=== PATIENT | male | born 1940 | race Caucasian/White ===

== ENCOUNTER → 2016-05-17 | Outpatient (CLI) | payer OTHER, BC ==
[~2016-05-17] MED LIST: ALPH300T PO; AMOX500C3 PO; ANDG TOP; ASPCH81X PO; ASPI81TA28 PO; CIPR-255 PO; COEN1CAP32 PO; FLUT0.15 NAE; HYDR-5688 PO; IBUP-1428 PO; LOSA1TAB PO; LYSI100014 PO; MELA1TAB18 PO; MELA3TAB12 PO; METR-163 PO; MISCTAB78 PO; MOME50SP5; MULT-188 PO; PANT1TAB48 PO; ROPI0.25 PO; SULF800T23 PO; TERA1CAP63 PO; TESTOSTERONE INJ; TRAM-10 PO; VALA500T60 PO
--- NOTE | 2016-05-17 08:23 | DIAGNOSTIC IMAGING REPORT ---
CHEST CT WITHOUT CONTRAST CT DOSE: 661.82 mGycm HISTORY: Nodule PULMONARY NODULE TECHNIQUE: Multiaxial CT images of the chest were performed without contrast. COMPARISON: 01/21/2016 FINDINGS: Unchanged exam. Emphysematous change with bleb formation right pulmonary apex. Pleural parenchymal extension to the right lateral chest wall. This is diminished in density from the prior exam. There are no new or interval findings. Minimal nodularity left upper lung is stable. There is no evidence for new interval or progressive disease. Findings were prior median sternotomy and revascularization procedure noted. IMPRESSION: Stable to improved exam. No new or interval process. No further follow-up is felt to be indicated Electronically signed by: Wesley Riggs M.D. 05/17/2016 8:21 AM Dictated Date/Time: 05/17/2016 8:15 AM
== END | disposition home or self-care (01) ==
LOC: C.CTS 08:00
PROVIDERS: ATTEND Surgery
DX: R91.1 Solitary pulmonary nodule (principal)

== ENCOUNTER 2016-08-14 13:53 | Inpatient (IN) | payer OTHER, BC ==
[~2016-08-14] VITALS: Ht 180.3 cm; Wt 110.0 kg
[~2016-08-14 13:53] MED LIST changes: -ASPCH81X PO; -FLUT0.15 NAE; -HYDR-5688 PO; -MELA3TAB12 PO; -METR-163 PO; -MULT-188 PO; -PANT1TAB48 PO; -SULF800T23 PO; -TERA1CAP63 PO; -TESTOSTERONE INJ; -TRAM-10 PO
[2016-08-14 14:53] VITALS: BP 147/80; PULSE 64; TEMP 36.6; O2SAT 97
--- NOTE | 2016-08-14 15:28 | History and Physical ---
History & Physical Date & Time of Service: August 14, 2016 at 15:22 Chief Complaint: Acute Diverticulitis, Failed Outpatient Treatment Primary Care Physician: Heber Felix M.D. History of Present Illness Source: spouse Pain started on evening. Pain started LUQ under rib - patient thought he had pulled a muscle while gardening earlier that day Over the last 4 days, pain has been migratory from LUQ to L lateral flank, then posteriorly, then to LLQ with medial spreading to groin and epigastric region. Took 1/2 oxycodone and ibuprofen simultaneously. This relieved pain significantly, making it tolerable, but no complete resolution. Pain not exacerbated by food, movement/ambulation. Pain felt on lying/sitting/ standing and patient requires ongoing position changes in order to feel comfortable. Pain has been intermittent, alternating between a pressure and sharp sensation. Pain radiates through the body to the back. Currently 5/10. An 8/10 at peak severity and 2-3/10 at best, post analgesia. Patient feels bloated - acutely worsened from the day before, and does have slight nausea since commencing antibiotics. States he has mild dizziness at baseline from medications, recently worsened. He denies fever, CP, SOB, vomiting, and diarrhea. In fact, stool hard. At baseline he has BM twice daily, now irregular. Last BM Monday. Admits he does not keep self well hydrated. No h/o kidney stones (sister and dad had kidney failure - unsure of cause), liver issues (although he used to drink 3/4 of a fifth- quit drinking since 1989 ), gallbladder disease, pancreatitis. No recent travel ([place] and [place] early in Apr 2015) Patient went to walk in clinic on 08/13 and was found to be FOBT negative and treated empirically for diverticulitis (given h/o diverticulosis) with Cipro 500 mg BID and Flagyl 500 mg TID x 10 days, and recommended clears diet. He took less than 24 hours of the medication but continued to have intractable abdominal pain and worsening bloating. He returned to the walk-in clinic on and was directly admitted to hospital for failure of outpatient therapy. Past Medical/Surgical History BPH s/p TURP Arrhythmia s/p pacemaker insertion Diverticulosis Emphysema - not on inhalers, but intermittent CPAP Herpes Bilateral cataract surgery Herniated disk/fusion L3-L6 Social History Smoking Status: Former Smoker (Ex smoker of 30 years, ~45 pack year history) Smokeless Tobacco Use: No Alcohol Use: none Drug Use: none Marital Status: Immunizations History of Influenza Vaccine: Yes Influenza Vaccine Date: Oct 31, 2010 History of Tetanus Vaccine?: Yes History of Pneumococcal: Yes History of Hepatitis B Vaccine: No Allergies Coded Allergies: Adhesives (Verified Allergy, Mild, RASH, 06/30/15) ON HIS NOSE ONLY Grass (Verified Allergy, Unknown, 06/30/15) Wheat (Verified Allergy, Unknown, 06/30/15) Zolpidem (Verified Allergy, Unknown, HALLUCINIATIONS/SUICIDAL THOUGHTS , ) Aspirin (Verified Adverse Reaction, Mild, "GI UPSET", 06/30/15) Sertraline (Verified Adverse Reaction, Unknown, DIZZINESS, 06/30/15) Home Medications Scheduled Alpha-Lipoic Acid (Thioctic Ac (Alpha Lipoic Acid), 400 MG PO QAM Amoxicillin (Amoxil), 500 MG PO UD Aspirin (Aspirin Ec), 81 MG PO HS Ciprofloxacin Hcl (Cipro), 500 MG PO BID Coenzyme Q10 (Ubidecarenone) (Coq-10), 1 TAB PO HS Ibuprofen (Motrin), 800 MG PO Q8H Losartan Potassium (Cozaar), 12.5 MG PO QAM Lysine Hcl (L-Lysine), 1,000 MG PO QAM Melatonin (Melatonin Cr), 1 MG PO HS Misc Natural Products (Osteo Bi-Flex Advanced Do), 1 TAB PEG QAM Mometasone Furoate (Nasonex), 1 SPRAY NA QAM Ropinirole (Requip), 0.25 MG PO HS Testosterone (Androgel), 1 PKT TOP QAM Valacyclovir (Valtrex), 500 MG PO QAM Review of Systems Constitutional: + fatigue (chronic, poor sleep), + weakness, No chills, No fever, No sweats Eyes: + worsening of vision (fuzzy when lighthead), No eye pain ENT: No nasal symptoms, No sore throat, No trouble swallowing Respiratory: No cough, No dyspnea at rest, No dyspnea on exertion, No wheezing Cardiovascular: + palpitations, No PND, No chest pain, No edema, No orthopnea Genitourinary - Male: + problem reported (noctuira x 3 nightly), + urinary hesitancy, + urinary incontinence, + urinary retention, No dysuria, No hematuria , No urinary frequency, No urinary urgency Neurologic: No balance problems, No numbness/tingling Integumentary: No bleeding, No itch, No new/changing skin lesions, No rash Allergic / Immunologic: No environmental allergies, No food allergies, No pet sensitivities, No seasonal allergies Physical Exam Vital Signs Date Time Temp Pulse Resp B/P Pulse Ox O2 Delivery O2 Flow Rate FiO2 08/14/16 14:53 36.6 64 16 147/80 97 Room Air General Appearance: WD/WN, no apparent distress Head: normocephalic, atraumatic Eyes: normal inspection ENT: hearing grossly normal, pharynx normal Neck: supple, no adenopathy, no carotid bruits Respiratory/Chest: lungs clear, normal breath sounds, no respiratory distress, no accessory muscle use Cardiovascular: regular rate, rhythm, no edema, no murmur, normal peripheral pulses Abdomen/GI: normal bowel sounds, soft, + pertinent finding (Distended abdomen, tenderness of LLQ, epigastrium and suprapubic region. No guarding, rigidity or rebound.) Back: normal inspection, no CVA tenderness, + pertinent finding (Tenderness at left low back) Extremities/Musculoskelatal: no calf tenderness, normal capillary refill, no pedal edema Neurologic/Psych: alert, normal mood/affect, oriented x 3 Skin: normal color, warm/dry, no rash Impression Assessment and Plan 75 year old male with PMHx BPH s/p TURP, arrhythmia s/p pacemaker insertion, diverticulosis admitted with LLQ abdominal pain for failure of outpatient therapy of diverticulitis. Abdominal pain - Initial dx include: kidney stone, diverticulitis, pyelonephritis, pancreatitis, UTI, among others. - NPO except sips/ice chips + mIVF D5+1/2NSS @100cc/hr - Tyelonol 1000mg q8h PRN or morphine 2mg q4hr PRN - Check CBC, BMP, LFT, lipase, PT/PTT/INR - UA - Strain all urine - Renal U/S - If renal U/S negative for stone or hydronephrosis, consider CT A/P with PO contrast - Not on antibiotics currently. Constipation - likely exacerbated by dehydration - mIVF D5+1/2NSS @100cc/hr - Colace BID + Miralax PRN BPH s/p TURP - Terazosin 2mg HS Emphysema - not on inhalers, uses CPAP intermittently at home - Declines CPAP in hospital Herpes - Valcyclovir 500mg qAM CAD - Aspirin 81mg daily Allergies - Flonase VTE - Enoxaparin 40mg SC - SCD Code status: Cardioversion WITHOUT chest compressions. Intubation but no detention ventilation Level of Care Med/Surg Advanced Directives Existing Advance Directive: Yes Existing Living Will: No Existing Power of Picking Belt Operator: No Existing Health Care Proxy: Yes () Resuscitation Status FULL NO CARDIOV/MECH MITALI (No compressions, defibrillation ok. Intubation ok, no life long ventilation) VTE Prophylaxis VTE Risk Assessment Done? Y/N: Yes Risk Level: Moderate Given or contraindicated: Enoxaparin (Lovenox)SQ, SCD's Resident Tracking Resident Involvement: Resident Care Provided Care Provided: Adult Hospital Medicine History Resident Physician Supervision Note: I was present with Dr. Mane during the history and exam. I discussed the case with the resident and agree with the findings and plan as documented in the note. Any exceptions or clarifications are listed here. 75 y/o male h/o diverticulosis presents with left sided abdominal pain which has progressively worsened - waxing and waning aching abdominal pain which improved with tylenol and oxycodone and not with ciprofloxacin and flagyl and does not appear related to POI. Change in bowels in the last day or so w/ pellet like stools. Reports no fever, chills, n/v, cough, CP/SOB, rashes, urinary complaints. General Appearance: WD/WN, no apparent distress, obese Respiratory: chest non-tender, lungs clear, normal breath sounds, no respiratory distress Cardiovascular: normal peripheral pulses, regular rate, rhythm, no edema, no murmur Gastrointestinal: normal bowel sounds, non tender, soft, no organomegaly Assessment/Plan BPH s/p TURP Arrhythmia s/p pacemaker insertion Diverticulosis Emphysema - not on inhalers CPAP Bilateral cataract surgery Herniated disk/fusion L3-L6 75 y/o male h/o LASHAWN on CPAP, diverticulosis, BPH s/p TURP p/w 4 days of progressive abdominal pain failing cipro/flagyl Abdominal pain - IV hydration, renal US --> CT w/ abx coverage if no hydronephrosis/stone. Pain control w/ tylenol and morphine. NPO LASHAWN - CPAP qHS
[2016-08-14] MEDS ORDERED: MAGNESIUM HYDROXIDE SUSP 30 ML UDC PO PRN (16:30)
[2016-08-14] MEDS ORDERED: ACETAMINOPHEN 325 MG TAB PO PRN (16:30)
[2016-08-14] MEDS ORDERED: ONDANSETRON INJ 2 MG/ML 2 ML VIAL IV PRN (16:30)
[2016-08-14] MEDS ORDERED: ALUMINUM/MAGNESIUM/SIMETH (MAALOX MAX) 30 ML UDC PO PRN (16:30)
[2016-08-14] MEDS ORDERED: POLYETHYLENE (MIRALAX) 17 GM PACK PO PRN (16:30)
[2016-08-14 17:24] LABS: BASO % 0.3 %; BASO ABS # 0.01 K/uL (0-0.2); EOS % 0.8 %; HEMATOCRIT 38.4 % (42-52); IG% 0.3 %; LYMPH % 25.3 %; LYMPH ABS # 0.98 K/uL (1.2-3.4); MEAN CELL VOLUME 91.2 fL (80-100); MEAN CORPUSCULAR HEMOGLOBIN 32.1 pg (25-34); MEAN PLATELET VOLUME 8.3 fL (7.4-10.4); MONO % 11.1 %; NEUT % 62.2 %; PLATELET COUNT 151 K/uL (130-400); RED BLOOD COUNT 4.21 M/uL (4.7-6.1); WHITE BLOOD COUNT 3.88 K/uL (4.8-10.8)
[2016-08-14 17:25] LABS: COMPLETE YES; MEAN CORPUSCULAR HGB CONC 35.2 g/dl (32-36)
[2016-08-14 17:26] VITALS: BP 147/80; PULSE 64; TEMP 36.6; O2SAT 97; BMI 33.8
[2016-08-14 17:33] LABS: INR 1.1 (0.9-1.1); PARTIAL THROMBOPLASTIN RATIO 1.2; PROTHROMBIN TIME (PATIENT) 11.9 SECONDS (9.0-12.0)
[2016-08-14 17:56] LABS: ALB/GLOB RATIO 1.3 (0.9-2); ALKALINE PHOSPHATASE 58 U/L (45-117); ALT/SGPT 21 U/L (12-78); AST/SGOT 10 U/L (15-37); BLOOD UREA NITROGEN 17 mg/dl (7-18); BUN/CREATININE RATIO 19.1 (10-20); CALCIUM 8.2 mg/dl (8.5-10.1); CARBON DIOXIDE 30 mmol/L (21-32); CHLORIDE 109 mmol/L (98-107); CREATININE 0.88 mg/dl (0.60-1.40); GLUCOSE 81 mg/dl (70-99); SODIUM 144 mmol/L (136-145)
[2016-08-14] MEDS ORDERED: ACETAMINOPHEN 500 MG TAB PO PRN (19:00)
[2016-08-14] MEDS: D5W AND 1/2NSS 1,000 ML IV SCH (19:17)
[2016-08-14] MEDS ORDERED: PATIENT'S HEIGHT AND/OR WEIGHT NEEDED SCH (19:45)
[2016-08-14 20:51] LABS: URINE APPEARANCE CLEAR (CLEAR); URINE BILIRUBIN NEG (NEG); URINE COLOR YELLOW; URINE EPITHELIAL CELL AUTO 0-5 /lpf (0-5); URINE NITRITE NEG (NEG); URINE PH 5.5 (4.5-7.5); URINE SPECIFIC GRAVITY 1.014 (1.000-1.030); UROBILINOGEN NEG (NEG); ZZUR CULT IF INDIC CLEAN CATCH NO
[2016-08-14 20:53] LABS: MANUAL MICROSCOPIC REQUIRED? NO; REVIEW REQ? NO
[2016-08-14] MEDS ORDERED: MELATONIN 1 MG PO SCH (21:00)
[2016-08-14] MEDS: MoRPHine SULFATE 2 MG/ML CARP IV PRN (21:47)
[2016-08-14] MEDS: ASPIRIN 81 MG ECTAB PO SCH (21:50)
[2016-08-14] MEDS: DOCUSATE SODIUM 100 MG CAP PO SCH (21:51)
[2016-08-14] MEDS: ACETAMINOPHEN 500 MG TAB PO PRN (22:24)
[2016-08-14 23:40] VITALS: BP 150/83; PULSE 65; TEMP 36.7; O2SAT 95
[2016-08-15] MEDS: MoRPHine SULFATE 2 MG/ML CARP IV PRN ×2 (02:02→05:57)
[2016-08-15] MEDS: ACETAMINOPHEN 500 MG TAB PO PRN ×2 (02:39→13:51)
[2016-08-15] MEDS: D5W AND 1/2NSS 1,000 ML IV SCH ×2 (04:27→13:17)
[2016-08-15 06:03] LABS: HEMATOCRIT 38.7 % (42-52); MEAN CELL VOLUME 90.6 fL (80-100); MEAN CORPUSCULAR HEMOGLOBIN 31.1 pg (25-34); MEAN CORPUSCULAR HGB CONC 34.4 g/dl (32-36); MEAN PLATELET VOLUME 8.5 fL (7.4-10.4); PLATELET COUNT 168 K/uL (130-400); RED BLOOD COUNT 4.27 M/uL (4.7-6.1); WHITE BLOOD COUNT 4.11 K/uL (4.8-10.8)
[2016-08-15 06:36] LABS: BUN/CREATININE RATIO 15.7 (10-20); CALCIUM 8.1 mg/dl (8.5-10.1); CREATININE 0.8 mg/dl (0.60-1.40); POTASSIUM 3.5 mmol/L (3.5-5.1)
[2016-08-15 07:11] VITALS: Ht 180.3 cm; Wt 110.0 kg
[2016-08-15 07:14] VITALS: BP 143/82; PULSE 76; TEMP 36.5; O2SAT 95
--- NOTE | 2016-08-15 07:15 | DIAGNOSTIC IMAGING REPORT ---
RENAL ULTRASOUND HISTORY: ?kidney/ureteric stone COMPARISON: None. FINDINGS: Right kidney: 12.4 cm. No hydronephrosis. Normal corticomedullary differentiation and cortical thickness. Left kidney: 12.1 cm. No hydronephrosis. Normal corticomedullary differentiation and cortical thickness. Bladder: No bladder wall thickening. The bilateral ureteral jets were identified. IMPRESSION: Normal renal ultrasound. Electronically signed by: Eduardo Hunt M.D. 08/15/2016 7:14 AM Dictated Date/Time: 08/15/2016 7:13 AM
[2016-08-15] MEDS: ENOXAPARIN 40 MG/0.4 ML SYR SQ SCH (09:12)
[2016-08-15] MEDS: FLUTICASONE PROPIONATE NA SPR 16 GM BTL NAE SCH (09:12)
[2016-08-15] MEDS: DOCUSATE SODIUM 100 MG CAP PO SCH ×2 (09:12→21:46)
[2016-08-15] MEDS ORDERED: MoRPHine SULFATE 4 MG/ML 1 ML CARP\\VIAL IV ONE (10:15)
[2016-08-15] MEDS ORDERED: MoRPHine SULFATE 4 MG/ML 1 ML CARP\\VIAL IV PRN (12:00)
--- NOTE | 2016-08-15 13:47 | DIAGNOSTIC IMAGING REPORT ---
ABDOMEN AND PELVIS CT WITH ORAL CONTRAST CT DOSE: 1175.46 mGy.cm HISTORY: Left lower quadrant abdominal pain. TECHNIQUE: Multiaxial CT images of the abdomen and pelvis were performed following the use of oral contrast. COMPARISON STUDY: None. FINDINGS: Mild thickening of the left basilar pleural. Otherwise, the lungs are clear. Pacemaker wires are noted. Right total hip arthroplasty. Posterior decompression and fusion within the lower lumbar spine. The unenhanced liver, gallbladder, spleen, adrenal glands, kidneys, and pancreas are unremarkable. No retroperitoneal lymphadenopathy. The visualized bladder is unremarkable. Colonic diverticulosis. No bowel wall thickening or obstruction. Normal appendix. IMPRESSION: 1. No bowel wall thickening or obstruction. 2. Normal appendix. 3. Colonic diverticulosis. 4. No renal stones or hydronephrosis. Electronically signed by: Eduardo Hunt M.D. 08/15/2016 1:45 PM Dictated Date/Time: 08/15/2016 1:38 PM
[2016-08-15 15:45] VITALS: BP 127/71; PULSE 64; TEMP 36.9; O2SAT 95
--- NOTE | 2016-08-15 15:51 | Family Medicine Progress Note ---
Progress Note Date of Service August 15, 2016. Subjective Pt evaluation today including: conversation w/ patient, conversation w/ family , physical exam, chart review, conversation w/ sustainable design consultant, review of inpatient medication list Pain: controlled PO Intake: adequate Voiding: no voiding problems Patient with no acute events overnight. His pain was still pretty severe this morning and he required an increase in his pain medication from 2mg to 3mg. Has had some diarrhea since starting stool softeners. CT abdomen/pelvis and Abdominal ultrasound were both normal He did mention to me that on Monday he was doing a lot of yard work and was doing a lot of weeding and lifting Patient denies any fevers, night sweats, chills, nausea, vomiting, constipation , chest pain, palpitations, cough, shortness of breath Additional Comments: See above for ROS Medications Current Inpatient Medications Medications (Trade) Dose Ordered Sig/Nils Route Start Time Stop Time Status Last Admin Dose Admin Al Hydrox/Mg Hydrox/Simethicone (Maalox Max Susp) 15 ml Q4H PRN PO 08/14/16 16:30 09/13/16 16:29 Magnesium Hydroxide (Milk Of Magnesia Susp) 30 ml Q6H PRN PO 08/14/16 16:30 09/13/16 16:29 Polyethylene (Miralax Powder Packet) 17 gm DAILY PRN PO 08/14/16 16:30 09/13/16 16:29 Ondansetron HCl (Zofran Inj) 4 mg Q6H PRN IV 08/14/16 16:30 09/13/16 16:29 Aspirin (Ecotrin Tab) 81 mg HS PO 08/14/16 21:00 09/13/16 20:59 08/14/16 21:50 81 MG Valacyclovir HCl (Valtrex Tab) 500 mg QAM PO 08/15/16 09:00 08/25/16 08:59 08/15/16 09:12 500 MG Fluticasone Propionate 1 sprays 1 sprays QAM ZHANNA 08/15/16 09:00 09/14/16 08:59 08/15/16 09:12 1 SPRAYS Dextrose/Sodium Chloride (D5W And 1/2nss) 1,000 ml @ 100 mls/hr Q10H IV 08/14/16 17:45 09/13/16 17:44 08/15/16 13:17 100 MLS/HR Acetaminophen (Tylenol Tab) 1,000 mg Q8 PRN PO 08/14/16 19:00 09/13/16 18:59 08/15/16 13:51 1,000 MG Enoxaparin Sodium (Lovenox Inj) 40 mg QAM SQ 08/15/16 09:00 09/14/16 08:59 08/15/16 09:12 40 MG Docusate Sodium (coLACE CAP) 100 mg BID PO 08/14/16 21:00 09/13/16 20:59 08/15/16 09:12 100 MG Terazosin HCl (Hytrin Cap) 2 mg HS PO 08/14/16 21:00 09/13/16 20:59 08/14/16 21:50 2 MG Morphine Sulfate (MoRPHine SULFATE INJ) 3 mg Q4 PRN IV 08/15/16 12:00 08/29/16 11:59 Acetaminophen/ Hydrocodone Bitart ([place] 5/325 Tab) 1 tab Q4H PRN PO 08/15/16 14:15 08/29/16 14:14 Objective Vital Signs Date Time Temp Pulse Resp B/P Pulse Ox O2 Delivery O2 Flow Rate FiO2 08/15/16 09:41 Room Air 08/15/16 07:14 36.5 76 16 143/82 95 Room Air 08/14/16 23:45 Room Air 08/14/16 23:40 36.7 65 16 150/83 95 Room Air 08/14/16 17:26 36.6 64 16 147/80 97 Room Air Physical Exam General Appearance: WD/WN, no apparent distress Respiratory/Chest: chest non-tender, lungs clear, normal breath sounds Cardiovascular: regular rate, rhythm, no edema, no murmur Abdomen: soft, no organomegaly, + tenderness (in the left middle quadrant and left lower quadrant) Extremities: non-tender, normal inspection, no calf tenderness, normal capillary refill, + pertinent finding (pain on lumbar flexion/extension, pain on lumbar rotation) Laboratory Results Results Past 24 Hours Test 08/14/16 17:12 08/14/16 20:30 08/15/16 05:12 Range/Units White Blood Count 3.88 4.11 4.8-10.8 K/uL Red Blood Count 4.21 4.27 4.7-6.1 M/uL Hemoglobin 13.5 13.3 14.0-18.0 g/dL Hematocrit 38.4 38.7 42-52 % Mean Corpuscular Volume 91.2 90.6 80-100 fL Mean Corpuscular Hemoglobin 32.1 31.1 25-34 pg Mean Corpuscular Hemoglobin Concent 35.2 34.4 32-36 g/dl Platelet Count 151 168 130-400 K/uL Mean Platelet Volume 8.3 8.5 7.4-10.4 fL Neutrophils (%) (Auto) 62.2 % Lymphocytes (%) (Auto) 25.3 % Monocytes (%) (Auto) 11.1 % Eosinophils (%) (Auto) 0.8 % Basophils (%) (Auto) 0.3 % Neutrophils # (Auto) 2.42 1.4-6.5 K/uL Lymphocytes # (Auto) 0.98 1.2-3.4 K/uL Monocytes # (Auto) 0.43 0.11-0.59 K/uL Eosinophils # (Auto) 0.03 0-0.5 K/uL Basophils # (Auto) 0.01 0-0.2 K/uL RDW Standard Deviation 42.6 42.0 36.4-46.3 fL RDW Coefficient of Variation 12.8 12.7 11.5-14.5 % Immature Granulocyte % (Auto) 0.3 % Immature Granulocyte # (Auto) 0.01 0.00-0.02 K/uL Prothrombin Time 11.9 9.0-12.0 SECONDS Prothromb Time International Ratio 1.1 0.9-1.1 Activated Partial Thromboplast Time 31.3 21.0-31.0 SECONDS Partial Thromboplastin Ratio 1.2 Sodium Level 144 144 136-145 mmol/L Potassium Level 4.0 3.5 3.5-5.1 mmol/L Chloride Level 109 110 98-107 mmol/L Carbon Dioxide Level 30 28 21-32 mmol/L Anion Gap 5.0 6.0 3-11 mmol/L Blood Urea Nitrogen 17 13 7-18 mg/dl Creatinine 0.88 0.80 0.60-1.40 mg/dl Estimated GFR () 98.8 102.7 Estimated GFR (Non- 85.2 88.6 BUN/Creatinine Ratio 19.1 15.7 10-20 Random Glucose 81 110 70-99 mg/dl Calcium Level 8.2 8.1 8.5-10.1 mg/dl Total Bilirubin 0.7 0.2-1 mg/dl Aspartate Amino Transf (AST/SGOT) 10 15-37 U/L Alanine Aminotransferase (ALT/SGPT) 21 12-78 U/L Alkaline Phosphatase 58 45-117 U/L Total Protein 6.3 6.4-8.2 gm/dl Albumin 3.5 3.4-5.0 gm/dl Globulin 2.8 2.5-4.0 gm/dl Albumin/Globulin Ratio 1.3 0.9-2 Lipase 79 73-393 U/L Urine Color YELLOW Urine Appearance CLEAR CLEAR Urine pH 5.5 4.5-7.5 Urine Specific [place] 1.014 1.000-1.030 Urine Protein NEG NEG Urine Glucose (UA) NEG NEG Urine Ketones TRACE NEG Urine Occult Blood NEG NEG Urine Nitrite NEG NEG Urine Bilirubin NEG NEG Urine Urobilinogen NEG NEG Urine Leukocyte Esterase NEG NEG Urine WBC (Auto) 0 0-5 /hpf Urine RBC (Auto) 0-4 0-4 /hpf Urine Hyaline Casts (Auto) 0 0-5 /lpf Urine Epithelial Cells (Auto) 0-5 0-5 /lpf Urine Bacteria (Auto) NEG NEG Est Creatinine Clear Calc Drug Dose 103.7 ml/min Assessment and Plan 75 year old male with PMHx BPH s/p TURP, arrhythmia s/p pacemaker insertion, diverticulosis admitted with LLQ abdominal pain for failure of outpatient therapy of diverticulitis. Abdominal pain - CT abdomen/pelvis showed diverticulosis but no diverticulitis, Renal ultrasound normal - Diet ordered - IVF 100mls/hr - Going to get MRI of lumbar spine - Patients pain can be MSK in nature - IV morphine 3mg q4, add [place] q4 prn - Start PT/OT Constipation - Colace BID + Miralax PRN BPH s/p TURP - Terazosin 2mg HS Emphysema - not on inhalers, uses CPAP intermittently at home - Declines CPAP in hospital Herpes - Valcyclovir 500mg qAM CAD - Aspirin 81mg daily Allergies - Flonase VTE - Enoxaparin 40mg SC - SCD Code status: Cardioversion WITHOUT chest compressions. 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 pain going into the back Constitutional: denies: fever Respiratory: negative: short of breath Cardiovascular: denies chest pain General Appearance: no apparent distress Respiratory: lungs clear, no respiratory distress Cardiovascular: regular rate, rhythm Gastrointestinal: normal bowel sounds, soft, other (Left lower quadrant tenderness but no gaurding/rigidity/rebound. ) Neurologic/Psychiatric: alert, oriented x 3 Assessment/Plan I have reviewed the medical record and performed a history and physical examination of this patient today. I have discussed the case with Dr. Grimm. The above note reflects my findings, conclusions, and recommendations
[2016-08-15 16:00] VITALS: O2SAT 95
[2016-08-15] MEDS: HYDROCODONE/ACETAMOPHEN 5/325MG TAB PO PRN (19:43)
[2016-08-15] MEDS: ASPIRIN 81 MG ECTAB PO SCH (21:47)
[2016-08-15] MEDS ORDERED: NURSING VERBAL MED ORDER ONE (22:15)
[2016-08-15 22:50] VITALS: BP 149/79; PULSE 68; TEMP 36.7; O2SAT 95
[2016-08-16] MEDS: HYDROCODONE/ACETAMOPHEN 5/325MG TAB PO PRN ×3 (02:58→13:29)
[2016-08-16 05:39] LABS: HEMATOCRIT 41.1 % (42-52); MEAN CELL VOLUME 89.7 fL (80-100); MEAN CORPUSCULAR HGB CONC 34.5 g/dl (32-36); MEAN PLATELET VOLUME 8.3 fL (7.4-10.4); PLATELET COUNT 150 K/uL (130-400); RED BLOOD COUNT 4.58 M/uL (4.7-6.1); WHITE BLOOD COUNT 3.63 K/uL (4.8-10.8)
[2016-08-16 07:57] VITALS: BP 142/78; PULSE 67; TEMP 36.4; O2SAT 97
[2016-08-16 08:10] VITALS: O2SAT 97
[2016-08-16] MEDS: FLUTICASONE PROPIONATE NA SPR 16 GM BTL NAE SCH (08:17)
[2016-08-16] MEDS: DOCUSATE SODIUM 100 MG CAP PO SCH (08:18)
[2016-08-16] MEDS: ENOXAPARIN 40 MG/0.4 ML SYR SQ SCH (08:19)
[2016-08-16] MEDS ORDERED: HYDR-5688 PO (12:56)
--- NOTE | 2016-08-16 12:58 | Discharge Instructions ---
Discharge Instructions Date of Service August 16, 2016. Admission Reason for Admission: Acute Diverticulitis, Failed Outpatient Treatment Discharge Discharge Diagnosis / Problem: Left flank pain - likely radicular Discharge Goals Goal(s): Decrease discomfort Activity Recommendations Activity Limitations: resume your previous activity . Instructions / Follow-Up Instructions / Follow-Up With family physician at 8.[address] Felix Please call and schedule appointment with Dr. Lenore Pickering Physical therapy Current Hospital Diet Patient's current hospital diet: Regular Diet Discharge Diet Recommended Diet: Low Sodium Diet (2gm Na) Pending Studies Studies pending at discharge: no Medical Emergencies . Who to Call and When: Medical Emergencies: If at any time you feel your situation is an emergency, please call 911 immediately. . Non-Emergent Contact Non-Emergency issues call your: Primary Care Provider . . "Provider Documentation" section prepared by Claudia Harrison. . VTE Core Measure Inpt VTE Proph given/why not?: Enoxaparin (Lovenox)SQ, SCD's
--- NOTE | 2016-08-16 13:13 | DIAGNOSTIC IMAGING REPORT ---
ADDENDUM Addendum for pre-MRI: No abandoned cardiac leads are identified. Electronically signed by: Eduardo Hunt M.D. 09/09/2016 11:36 AM Dictated Date/Time: 09/09/2016 11:33 AM ORIGINAL REPORT CHEST 2 VIEWS ROUTINE CLINICAL HISTORY: Check pacemaker ABDOMINAL PAIN COMPARISON STUDY: 06/07/2015 FINDINGS: The cardiac and mediastinal contours remain stable. There has been interval placement of a left subclavian dual-chamber central venous pacemaker. Electrodes position is unremarkable. There is no pneumothorax. There is no failure. There is no lobar consolidation. There are minor chronic interstitial changes within the right upper lung zone. Degenerative changes are present within the dorsal spine. There are no significant pleural effusions. There is no free intraperitoneal air.[ IMPRESSION: No active disease in the chest. Electronically signed by: Quinn Hood M.D. 08/16/2016 1:11 PM Dictated Date/Time: 08/16/2016 1:10 PM
--- NOTE | 2016-08-16 13:17 | DIAGNOSTIC IMAGING REPORT ---
ABDOMEN 2 VIEWS CLINICAL HISTORY: Abdominal pain. COMPARISON STUDY: CT of the abdomen and pelvis August 15, 2016. FINDINGS: Pacer leads are partially imaged. There is no evidence of free air on the upright projections. Oral contrast from prior CT is within the colon and rectum. Lumbar spine fusion/discectomy and a right hip arthroplasty are incidentally noted. Bowel gas pattern is normal. IMPRESSION: No free air or evidence of bowel obstruction. Electronically signed by: Sal Pardo M.D. 08/16/2016 1:16 PM Dictated Date/Time: 08/16/2016 1:15 PM
[2016-08-16 13:35] VITALS: BP 142/78; PULSE 67; TEMP 36.4; O2SAT 97
--- NOTE | 2016-08-16 14:31 | Discharge Summary ---
Discharge Summary Date of Service August 16, 2016. (Anshu Grimm MD) Discharge Summary Admission Date: August 14, 2016 at 14:19 Discharge Date: August 16, 2016 Discharge Disposition: Home Principal Diagnosis: Abdominal Pain Immunizations: Have You Had Influenza Vaccine: Yes Influenza Vaccine Date: Oct 31, 2010 History of Tetanus Vaccine?: Yes History of Pneumococcal: Yes History of Hepatitis B Vaccine: No (Anshu Grimm MD) Medication Reconciliation New Medications: Hydrocodone/Acetaminophen 5MG/325MG ([place] 5MG/325MG) Tab 1 TAB PO Q4H PRN for Pain for 5 Days, #20 TAB PRN PAIN Continued Medications: Alpha-Lipoic Acid (Thioctic Ac (Alpha Lipoic Acid) 300 Mg Tab 400 MG PO QAM Amoxicillin (Amoxil) 500 Mg Cap 500 MG PO UD, CAP Aspirin (Aspirin Ec) 81 Mg Tab 81 MG PO HS Coenzyme Q10 (Ubidecarenone) (Coq-10) 400 Mg Cap 1 TAB PO HS Ibuprofen (Motrin) 800 Mg Tab 800 MG PO Q8H for Pain, TAB Losartan Potassium (Cozaar) 25 Mg Tab 12.5 MG PO QAM, TAB Lysine Hcl (L-Lysine) 1,000 Mg Tab 1000 MG PO QAM Melatonin (Melatonin Cr) 10 Mg Tab 1 MG PO HS Misc Natural Products (Osteo Bi-Flex Advanced Do) 1 Tab Tab 1 TAB PEG QAM Mometasone Furoate (Nasonex) [place] 1 SPRAY NA QAM, BTL Ropinirole (Requip) 0.25 Mg Tab 0.25 MG PO HS, TAB Testosterone (Androgel) 5 Gm Gel 1 PKT TOP QAM, #90 PKT 1 Refill Valacyclovir (Valtrex) 500 Mg Tab 500 MG PO QAM, 0 Refills Discontinued Medications: Ciprofloxacin Hcl (Cipro) 500 Mg Tab 500 MG PO BID, #6 TAB Discharge Exam Patient with no acute events overnight. Was made aware that he wont be able to get MRI as he needs a CXR before and he has a pacemaker but that the pacemaker he has in is not a contraindication to MRI according to the pacemaker company. He is still having abdominal pain on his left side that he rates a 6/10 with pain meds. He says it is still crampy and then sharp at times. He had some diarrhea which slowed down yesterday Review of Systems: Constitutional: No chills, No fever, No sweats Respiratory: No cough, No dyspnea on exertion, No shortness of breath, No sputum Cardiovascular: No chest pain, No edema, No palpitations Abdomen: + diarrhea, + pain, No constipation, No nausea, No vomiting Musculoskeletal: + muscle pain (lower back) Genitourinary - Male: + problem reported (testicular pain), + urinary frequency, + urinary hesitancy, No dysuria, No hematuria Neurologic: No numbness/tingling, No paralysis, No weakness Physical Exam: General Appearance: WD/WN, no apparent distress Respiratory/Chest: lungs clear, normal breath sounds, no accessory muscle use Cardiovascular: regular rate, rhythm, no edema, no murmur, normal peripheral pulses, + pertinent finding (pacemaker) Abdomen / GI: normal bowel sounds, no organomegaly, + tenderness (mild tenderness to left middle quadrant) Extremities: normal inspection, no calf tenderness, non-tender, + pertinent finding (left lower back tenderness) (Anshu Grimm MD) continues to have left lower abd pain but controlled with medications Review of Systems: Constitutional: No fever Respiratory: No shortness of breath Cardiovascular: No chest pain Neurologic: No numbness/tingling, No weakness Physical Exam: General Appearance: no apparent distress Abdomen / GI: normal bowel sounds, non tender, soft Extremities: + pertinent finding (SLR negative. FROM at left hip. ) Neurologic/Psychiatric: no motor/sensory deficits, alert, oriented x 3 Skin: warm/dry (Claudia Harrison M.D.) Hospital Course 75 year old male with PMHx BPH s/p TURP, arrhythmia s/p pacemaker insertion, diverticulosis admitted with LLQ abdominal pain for failure of outpatient therapy of diverticulitis. Abdominal pain - CT abdomen/pelvis showed diverticulosis but no diverticulitis, Renal ultrasound normal - Cipro stopped. Patient stable and discharged with brownell, outpatient PT and follow up with Heber Felix Constipation - Colace BID + Miralax PRN BPH s/p TURP - Terazosin 2mg HS Emphysema -not on inhalers, uses CPAP intermittently at home - Declined CPAP in hospital Herpes - Valcyclovir 500mg qAM CAD - Aspirin 81mg daily Allergies - Flonase Total Time Spent: Less than 30 minutes This includes examination of the patient, discharge planning, medication reconciliation, and communication with other providers. (Anshu Grimm MD) I have reviewed the medical record and performed a history and physical examination of this patient today. I have discussed the case with Dr Grimm. The above note reflects my findings, conclusions, and recommendations with the following additions. Suspect pain in left lower abdomen radiating to back - likely lumbar radicular pain. pain controlled with medication. Script for PT given on discharge. To follow up with Pcp and with h/o back surgery x2 - should f/u with Dr. Grover as outpatient Total Time Spent: Greater than 30 minutes (35 ) (Claudia Harrison M.D.) Discharge Instructions Please refer to the electronic Patient Visit Report (Discharge Instructions) for additional information. (Anshu Grimm MD) Additional Copies To Heber Felix M.D.
[2016-08-19] MEDS ORDERED: MULT-188 PO (11:53)
[2016-08-19] MEDS ORDERED: TRAM-10 PO (11:53)
[2016-08-19] MEDS ORDERED: MELA3TAB12 PO (11:53)
[2016-08-19] MEDS ORDERED: METR-163 PO (11:53)
[2016-08-19] MEDS ORDERED: ASPCH81X PO (11:53)
[2016-08-19] MEDS ORDERED: TESTOSTERONE INJ (11:53)
[2016-08-19] MEDS ORDERED: SULF800T23 PO (11:53)
[2016-08-19] MEDS ORDERED: PANT1TAB48 PO (11:53)
[2016-08-19] MEDS ORDERED: TERA1CAP63 PO (11:53)
[2016-08-19] MEDS ORDERED: FLUT0.15 NAE (11:53)
[2017-02-21] MEDS ORDERED: PSYL43PO PO (11:17)
[2017-02-21] MEDS ORDERED: testosterone INJ (11:17)
[2017-02-21] MEDS ORDERED: TRAZ50TA35 PO (11:17)
== END 2016-08-16 14:05 | disposition home or self-care (01) | DRG 392 ==
LOC: C.3E 14:19
PROVIDERS: ADMIT Family Medicine; ATTEND Family Medicine
DX: R10.9 Unspecified abdominal pain (principal); K57.90 Diverticulosis of intestine, part unspecified, without perforation or abscess without bleeding; E86.0 Dehydration; K59.00 Constipation, unspecified; J43.9 Emphysema, unspecified; B00.9 Herpesviral infection, unspecified; I25.10 Atherosclerotic heart disease of native coronary artery without angina pectoris; N40.1 Benign prostatic hyperplasia with lower urinary tract symptoms; J30.2 Other seasonal allergic rhinitis; Z95.0 Presence of cardiac pacemaker; Z98.1 Arthrodesis status; Z87.891 Personal history of nicotine dependence; Z79.82 Long term (current) use of aspirin; Z79.899 Other long term (current) drug therapy

== ENCOUNTER → 2016-08-22 | Day surgery (SDC) | payer OTHER, BC ==
[2016-08-19 11:54] VITALS: Ht 180.3 cm; Wt 109.1 kg
[~2016-08-22] VITALS: Ht 180.3 cm; Wt 109.1 kg
[~2016-08-22] MED LIST changes: -ANDG TOP; +ASPCH81X PO; -ASPI81TA28 PO; +ATROPINE SULFATE 0.1 MG/ML 5ML SYR IV PRN; -CIPR-255 PO; +EpHEDrine SULFATE INJ 50 MG/ML AMP IV PRN; +FENTANYL CITRATE INJ 50 MCG/1 ML 2 ML VIAL ONE; +FLUT0.15 NAE; -IBUP-1428 PO; +LIDOCAINE HCL 2% 2 ML VIAL (20MG/ML) ONE; -LOSA1TAB PO; -MELA1TAB18 PO; +MELA3TAB12 PO; +METR-163 PO; -MOME50SP5; +MULT-188 PO; +PANT1TAB48 PO; +PROPOFOL IV EMULSION 10 MG/ML 20 ML VIAL IV ONE; +PSYL43PO PO; +SULF800T23 PO; +TERA1CAP63 PO; +TESTOSTERONE INJ; +TRAM-10 PO; +TRAZ50TA35 PO; +testosterone INJ
[2016-08-22 12:45] VITALS: TEMP 36.9
--- NOTE | 2016-08-22 13:01 | Endo History and Physical ---
History & Physical Date of Service: Aug 22, 2016. Chief Complaint: Abdominal pain Referring Physician: Heber Felix History of Present Illness For EGD Past Medical History Arthritis, Male Genitourinary Prob., Reflux, Sleep Apnea, Hypertension Past Surgical History Hx Cardiac Surgery: Yes (HEART CATH-NO STENTS) Hx Pacemaker: Yes (2016 PLACED) Hx Abdominal Surgery: No Hx Post-Op Nausea and Vomiting: No Hx Cancer Surgery: No Hx Thoracic Surgery: No Hx Orthopedic: Yes (LUMBAR DISC, LT BUNION, RIGHT KNEE ARTHROSCOPY, RT TKA/AIMEE , LUMBAR FUSION) Hx Urinary Tract Surgery: No Family History Polyp, IBD Social History Smoking Status: Former Smoker Hx Substance Use: No Hx Alcohol Use: No Allergies Coded Allergies: Grass (Verified Allergy, Unknown, WATERY EYES, 08/22/16) Zolpidem (Verified Allergy, Unknown, HALLUCINIATIONS/SUICIDAL THOUGHTS , ) Aspirin (Verified Adverse Reaction, Mild, "GI UPSET", 08/22/16) Sertraline (Verified Adverse Reaction, Unknown, DIZZINESS, 08/22/16) Current Medications Reported Home Medications Medications Dose Route/Sig Max Daily Dose Days Date Category Dose Instructions Flagyl (Metronidazole) 500 Mg Tab 500 Mg PO TID 08/19/16 Reported Protonix (Pantoprazole) 40 Mg Tab 40 Mg PO QAM 08/19/16 Reported Bactrim Ds 800MG/160MG (Trimethoprim/Sulfamethoxazole) Tab 1 Tab PO BID 08/19/16 Reported Ultram (Tramadol HCl) 50 Mg Tab 1-2 Tab PO Q6H PRN 08/19/16 Reported Ocuvite (Multiple Vitamins W/ Minerals) 1 Tab Tab 1 Tab PO HS 08/19/16 Reported Flonase Allergy Relief (Fluticasone Propionate (Nasal)) 50 Mcg/Act Spr 1 [place] ZHANNA DAILY PRN 08/19/16 Reported Hytrin (Terazosin HCl) 10 Mg Cap 10 Mg PO HS 08/19/16 Reported Melatonin (Melatonin-Pyridoxine) 1 Tab Tab 10 Mg PO HS 08/19/16 Reported [Testosterone] 1 Dose INJ [id number] 08/19/16 Reported Aspirin Chewable (Aspirin) 81 Mg Chew 81 Mg PO HS 08/19/16 Reported Amoxil (Amoxicillin) 500 Mg Cap 500 Mg PO UD 06/15/15 Reported TAKES BEFORE DENTAL PROCEDURE Alpha Lipoic Acid (Alpha-Lipoic Acid (Thioctic Ac) 300 Mg Tab 400 Mg PO QAM 06/15/15 Reported L-Lysine (Lysine Hcl) 1,000 Mg Tab 1,000 Mg PO QAM 06/15/15 Reported Osteo Bi-Flex Advanced Do (Misc Natural Products) 1 Tab Tab 1 Tab PO BID 06/15/15 Reported Coq-10 (Coenzyme Q10 (Ubidecarenone)) 400 Mg Cap 1 Tab PO HS 10/31/13 Reported Requip (Ropinirole HCl) 0.25 Mg Tab 0.25 Mg PO BID 10/31/13 Reported Valtrex (Valacyclovir HCl) 500 Mg Tab 500 Mg PO QAM 12/22/10 Reported Vital Signs Weight (Kilograms): 109.09 Height (Feet): 5 Height (Inches): 11 Date Time Temp Pulse Resp B/P (MAP) Pulse Ox O2 Delivery O2 Flow Rate FiO2 08/22/16 12:45 36.9 66 18 143/77 94 Room Air Physical Exam General Appearance: WD/WN Respiratory/Chest: Respiratory effort: no dyspnea Cardiovascular: Heart Auscultation: RRR Abdomen: Inspection & Palpation: LUQ tenderness (LUQ pain for EGD) Assessment and Plan LUQ pain for EGD
--- NOTE | 2016-08-22 13:13 | Discharge Instructions ---
Endoscopy Patient Instructions Date / Procedure(s) Performed Aug 22, 2016. EGD Allergy Information Coded Allergies: Grass (Verified Allergy, Unknown, WATERY EYES, 08/22/16) Zolpidem (Verified Allergy, Unknown, HALLUCINIATIONS/SUICIDAL THOUGHTS , ) Aspirin (Verified Adverse Reaction, Mild, "GI UPSET", 08/22/16) Sertraline (Verified Adverse Reaction, Unknown, DIZZINESS, 08/22/16) Discharge Date / Findings Aug 22, 2016. Normal EGD Medication Instructions Stopped Medication(s): Aspirin stopped 08/21/16 Restart Stopped Medication(s): resume meds Reported Home Medications Medications Dose Route/Sig Max Daily Dose Days Date Category Dose Instructions Flagyl (Metronidazole) 500 Mg Tab 500 Mg PO TID 08/19/16 Reported Protonix (Pantoprazole) 40 Mg Tab 40 Mg PO QAM 08/19/16 Reported Bactrim Ds 800MG/160MG (Trimethoprim/Sulfamethoxazole) Tab 1 Tab PO BID 08/19/16 Reported Ultram (Tramadol HCl) 50 Mg Tab 1-2 Tab PO Q6H PRN 08/19/16 Reported Ocuvite (Multiple Vitamins W/ Minerals) 1 Tab Tab 1 Tab PO HS 08/19/16 Reported Flonase Allergy Relief (Fluticasone Propionate (Nasal)) 50 Mcg/Act Spr 1 [place] ZHANNA DAILY PRN 08/19/16 Reported Hytrin (Terazosin HCl) 10 Mg Cap 10 Mg PO HS 08/19/16 Reported Melatonin (Melatonin-Pyridoxine) 1 Tab Tab 10 Mg PO HS 08/19/16 Reported [Testosterone] 1 Dose INJ [id number] 08/19/16 Reported Aspirin Chewable (Aspirin) 81 Mg Chew 81 Mg PO HS 08/19/16 Reported Amoxil (Amoxicillin) 500 Mg Cap 500 Mg PO UD 06/15/15 Reported TAKES BEFORE DENTAL PROCEDURE Alpha Lipoic Acid (Alpha-Lipoic Acid (Thioctic Ac) 300 Mg Tab 400 Mg PO QAM 06/15/15 Reported L-Lysine (Lysine Hcl) 1,000 Mg Tab 1,000 Mg PO QAM 06/15/15 Reported Osteo Bi-Flex Advanced Do (Misc Natural Products) 1 Tab Tab 1 Tab PO BID 06/15/15 Reported Coq-10 (Coenzyme Q10 (Ubidecarenone)) 400 Mg Cap 1 Tab PO HS 10/31/13 Reported Requip (Ropinirole HCl) 0.25 Mg Tab 0.25 Mg PO BID 10/31/13 Reported Valtrex (Valacyclovir HCl) 500 Mg Tab 500 Mg PO QAM 12/22/10 Reported Provider Instructions Activity Restrictions - No exercising or heavy lifting for 24 hours. - Do not drink alcohol the day of the procedure. - Do not drive a car or operate machinery until the day after the procedure. - Do not make any important decisions or sign important papers in 24 hours after the procedure. Following Day: - Return to full activity which may include returning to work/school. Diet Start your diet with liquids and light foods (jello, soup, juice, toast). Then eat your usual diet if not nauseated. Treatment For Common After Affects For mild abdominal pain, bloating, or excessive gas: - Rest - Eat lightly - Lie on right side Follow-Up Information Follow-up with eHber Felix as scheduled Anesthesia Information What You Should Know You have had a procedure that required some medicine to reduce anxiety and discomfort. This treatment is called moderate sedation. After receiving the treatment, you may be sleepy, but you will be able to breathe on your own. The effects of the treatment may last for several hours. Follow these instructions along with Activity/Diet recommendations noted above: * Do NOT do anything where dizziness or clumsiness would be dangerous. * Rest quietly at home today, then you can be up and about tomorrow. * Have a responsible person stay with you the rest of today. * You may have had an I.V. today. If so, you may take the dressing off later today. Recommendations Call your doctor if: * Trouble breathing * Continuous vomiting for more than 24 hours * Temperature above 101 degrees * Severe abdominal pain or bloating * Pain not relieved by pain medicine ordered * There is increased drainage or redness from any incision * A large amount of rectal bleeding greater than 2-3 tablespoons. (If you had a polyp/s removed or have hemorrhoids, a small amount of blood - from the rectum is to be expected.) * You have any unanswered questions or concerns. IN THE EVENT OF A SERIOUS EMERGENCY, GO TO THE NEAREST EMERGENCY ROOM Your discharge instructions were prepared by provider Gustavo Lowe. Patient Instructions Signature Josefina Frank Patient (or Guardian) Signature/Date: I have read and understand the instructions given to me by my caregivers. Caregiver/RN/Doctor Signature/Date: The above-named patient and/or guardian has received patient instructions on this date. + Original Patient Signature Page (only) stays with chart. Please make copy for patient.
--- NOTE | 2016-08-22 13:16 | GI REPORT ---
Procedure Date: 08/22/2016 1:02 PM Procedure: Upper GI endoscopy Indications: Abdominal pain in the left upper quadrant Medicines: Fentanyl 100 micrograms IV, Propofol total dose 100 mg IV, Lidocaine 40 mg IV Complications: No immediate complications. Estimated Blood Loss: Estimated blood loss: none. Procedure: Pre-Anesthesia Assessment: - Prior to the procedure, a History and Physical was performed, and patient medications, allergies and sensitivities were reviewed. The patient's tolerance of previous anesthesia was reviewed. - The risks and benefits of the procedure and the sedation options and risks were discussed with the patient. All questions were answered and informed consent was obtained. After obtaining informed consent, the endoscope was passed under direct vision. Throughout the procedure, the patient's blood pressure, pulse, and oxygen saturations were monitored continuously. The Scope was introduced through the mouth, and advanced to the second part of duodenum. The upper GI endoscopy was accomplished without difficulty. The patient tolerated the procedure well. Findings: The esophagus was normal. The stomach was normal. The examined duodenum was normal. Impression: - Normal esophagus. - Normal stomach. - Normal examined duodenum. - No specimens collected. Recommendation: - Discharge patient to home (ambulatory). - Continue present medications. - Return to primary care physician PRN. Gustavo Lowe M.D. Gustavo Lowe MD 08/22/2016 1:15:46 PM This report has been signed electronically. Note Initiated On: 08/22/2016 1:02 PM I attest to the content of the Intraoperative Record and orders documented therein, exceptions below
[2016-08-22 13:39] VITALS: BP 170/101; PULSE 69; O2SAT 95
--- NOTE | 2016-08-22 13:48 | Anesthesiology Progress Note ---
Anesthesia Post Op Note Date & Time Aug 22, 2016 at 13:47 Vital Signs Pain Intensity: 4 Vital Signs Past 12 Hours Date Time Temp Pulse Resp B/P (MAP) Pulse Ox O2 Delivery O2 Flow Rate FiO2 08/22/16 13:39 69 20 170/101 95 Room Air 08/22/16 13:31 65 20 164/89 94 Room Air 08/22/16 13:20 63 20 142/77 96 Room Air 08/22/16 13:18 80 18 114/72 95 Room Air 08/22/16 12:45 36.9 66 18 143/77 94 Room Air Notes Mental Status: alert / awake / arousable, participated in evaluation Pt Amnestic to Procedure: Yes Nausea / Vomiting: adequately controlled Pain: adequately controlled Airway Patency, RR, SpO2: stable & adequate BP & HR: stable & adequate Hydration State: stable & adequate Anesthetic Complications: no major complications apparent
== END | disposition home or self-care (01) ==
LOC: C.GI 12:13
PROVIDERS: ATTEND Internal Medicine Gastroenterology
DX: R10.12 Left upper quadrant pain (principal); M19.90 Unspecified osteoarthritis, unspecified site; K21.9 Gastro-esophageal reflux disease without esophagitis; G47.30 Sleep apnea, unspecified; I10 Essential (primary) hypertension; Z96.651 Presence of right artificial knee joint; Z96.641 Presence of right artificial hip joint; Z87.891 Personal history of nicotine dependence; Z98.1 Arthrodesis status

== ENCOUNTER → 2016-09-09 | Outpatient (CLI) | payer OTHER, BC ==
[~2016-09-09] MED LIST changes: -ATROPINE SULFATE 0.1 MG/ML 5ML SYR IV PRN; -EpHEDrine SULFATE INJ 50 MG/ML AMP IV PRN; -FENTANYL CITRATE INJ 50 MCG/1 ML 2 ML VIAL ONE; -LIDOCAINE HCL 2% 2 ML VIAL (20MG/ML) ONE; -PROPOFOL IV EMULSION 10 MG/ML 20 ML VIAL IV ONE
--- NOTE | 2016-09-09 13:53 | DIAGNOSTIC IMAGING REPORT ---
MRI LUMBAR SPINE W/O CONTRAST CLINICAL HISTORY: Lumbar spine pain TECHNIQUE: Sagittal and axial T1, T2 and STIR images were obtained. COMPARISON STUDY: 06/29/2012 OBSERVATIONS: The vertebral bodies and posterior elements appear intact. There is no abnormal bony signal present to suggest a marrow replacement process. L1-2: There is a moderate right paracentral disc protrusion with deformity the thecal sac and moderate spinal canal narrowing. There is bilateral foraminal narrowing. L2-3: There is a circumferential disc bulge with moderate triangular spinal canal narrowing. There is mild bilateral foraminal narrowing L3-4: There are postsurgical changes of a posterior laminectomy. There are postsurgical changes of an L3-4 discectomy and interbody fusion. There is a mild circumferential disc bulge. There is no significant spinal stenosis. L4-5: There are postsurgical changes of discectomies and interbody fusion. Postlaminectomy changes are evident. There is no significant spinal or foraminal stenosis L5-S1: There is a small right paracentral disc protrusion. There is no significant spinal or foraminal stenosis. The conus medullaris and cauda equina appear normal. Pedicle screws are visualized the L3, L4, and L5 levels. IMPRESSION: 1. Enlarging right paracentral disc protrusion at the L1-2-level with secondary thecal sac deformity, moderate spinal canal narrowing, and bilateral foraminal narrowing 2. L2-3 disc bulge. Slightly progressive moderate spinal stenosis. Mild bilateral foraminal narrowing 3. Interval surgery at the L3-4 level. No evidence of recurrent disc herniation 4. Postsurgical changes the L4-5 level. No significant spinal or foraminal stenosis 5. Small right paracentral disc protrusion at the L5-S1 level. This appears slightly more prominent than on the prior study. No significant spinal or foraminal stenosis at this level. Electronically signed by: Quinn Hood M.D. 09/09/2016 1:52 PM Dictated Date/Time: 09/09/2016 1:45 PM
== END | disposition home or self-care (01) ==
LOC: C.MRI 12:23
PROVIDERS: ATTEND Orthopaedic Surgery Orthopaedic Surgery of the Spine
DX: M51.16 Intervertebral disc disorders with radiculopathy, lumbar region (principal)

== ENCOUNTER 2017-03-22 05:48 | Inpatient (IN) | payer OTHER, BC ==
[2017-02-21 11:35] VITALS: BMI 33.0
--- NOTE | 2017-02-21 12:10 | PAT Medication Instructions ---
Service Date Feb 21, 2017. Current Home Medication List Alpha-Lipoic Acid (Thioctic Ac (Alpha Lipoic Acid), 400 MG PO QAM Amoxicillin (Amoxil), 500 MG PO UD Aspirin (Aspirin Chewable), 81 MG PO HS Coenzyme Q10 (Ubidecarenone) (Coq-10), 1 TAB PO HS Fluticasone Propionate (Nasal) (Flonase Allergy Relief), 1 SPRAY ZHANNA DAILY PRN for PRN Lysine Hcl (L-Lysine), 1,000 MG PO QAM Melatonin-Pyridoxine (Melatonin), 10 MG PO HS Misc Natural Products (Osteo Bi-Flex Advanced Do), 1 TAB PO BID Multiple Vitamins W/ Minerals (Ocuvite), 1 TAB PO HS Psyllium (Metamucil Free & Natural), 1 DOSE PO QAM Ropinirole (Requip), 0.25 MG PO BID Terazosin Hcl (Hytrin), 10 MG PO HS Tramadol (Ultram), 1-2 TAB PO Q6H PRN for Pain Trazodone Hcl (Trazodone), 50 MG PO HS Valacyclovir (Valtrex), 500 MG PO QAM [testosterone ], 200 MG INJ [id number] Medication Instructions For Your Scheduled Surgery - Continue as directed: [testosterone ], 200 MG INJ [id number] - Hold the following medications 2 weeks prior to surgery: Coenzyme Q10 (Ubidecarenone) (Coq-10), 1 TAB PO HS Misc Natural Products (Osteo Bi-Flex Advanced Do), 1 TAB PO BID - Do Not take the following medications after NOON the day prior to surgery: Ropinirole (Requip), 0.25 MG PO BID - Hold the following medications the morning of surgery: Alpha-Lipoic Acid (Thioctic Ac (Alpha Lipoic Acid), 400 MG PO QAM Lysine Hcl (L-Lysine), 1,000 MG PO QAM Psyllium (Metamucil Free & Natural), 1 DOSE PO QAM - Take the following medications the morning of surgery with a sip of water OTHERWISE NOTHING TO EAT OR DRINK AFTER MIDNIGHT: Valacyclovir (Valtrex), 500 MG PO QAM Fluticasone Propionate (Nasal) (Flonase Allergy Relief), 1 SPRAY ZHAN[place] DAILY PRN Tramadol (Ultram), 1-2 TAB PO Q6H PRN for Pain (july take if needed up to 4 hours prior to surgery) - Take the following medications as scheduled the night before surgery: Aspirin (Aspirin Chewable), 81 MG PO HS Multiple Vitamins W/ Minerals (Ocuvite), 1 TAB PO HS Terazosin Hcl (Hytrin), 10 MG PO HS Trazodone Hcl (Trazodone), 50 MG PO HS Melatonin-Pyridoxine (Melatonin), 10 MG PO HS Tramadol (Ultram), 1-2 TAB PO Q6H PRN for Pain If you have any questions please call us at [phone] or [phone] or [phone]
--- NOTE | 2017-02-21 13:13 | DIAGNOSTIC IMAGING REPORT ---
TWO VIEW CHEST CLINICAL HISTORY: Preoperative examination. FINDINGS: PA and lateral chest radiographs are compared to study dated 08/16/2016 and correlated with chest CT dated 05/17/2016 a 2-lead cardiac pacemaker is unchanged in position and partially obscures the left upper chest.. The heart is mildly enlarged and there is atherosclerotic calcification of the thoracic aorta. The pulmonary vasculature is noncongested. Emphysema and chronic interstitial thickening are similar to previous. Small foci of parenchyma scarring in the right upper lobe are unchanged. No airspace consolidation, large pleural effusion, or pneumothorax is identified. The skeletal structures are osteopenic. Degenerative change is seen throughout the thoracic spine. IMPRESSION: 1. Cardiomegaly and cardiac pacemaker. There is no radiographic evidence of congestive failure. 2. Emphysema with no acute cardiopulmonary abnormality. 3. A nodular opacity is identified in the right upper lobe. This likely represents parenchymal scarring when correlated with the 05/17/2016 CT. A repeat chest x-ray in 3 months time is recommended for reassessment. Electronically signed by: Dwaine Hardin M.D. 02/21/2017 1:12 PM Dictated Date/Time: 02/21/2017 1:10 PM
[2017-02-21 13:30] LABS: CALCIUM 8.8 mg/dl (8.5-10.1); CREATININE 0.88 mg/dl (0.60-1.40); POTASSIUM 3.9 mmol/L (3.5-5.1)
[2017-02-21 13:50] LABS: BASO % 0.2 %; BASO ABS # 0.01 K/uL (0-0.2); EOS % 1.9 %; EOS ABS # 0.08 K/uL (0-0.5); HEMATOCRIT 45.7 % (42-52); HEMOGLOBIN 15.9 g/dL (14.0-18.0); LYMPH % 27.1 %; LYMPH ABS # 1.16 K/uL (1.2-3.4); MEAN CELL VOLUME 91.4 fL (80-100); MEAN CORPUSCULAR HEMOGLOBIN 31.8 pg (25-34); MEAN CORPUSCULAR HGB CONC 34.8 g/dl (32-36); MEAN PLATELET VOLUME 9.2 fL (7.4-10.4); MONO % 11.7 %; NEUT % 59.1 %; NEUT ABS # 2.53 K/uL (1.4-6.5); PLATELET COUNT 175 K/uL (130-400); RED CELL DISTRIBUTION WIDTH CV 13.1 % (11.5-14.5); RED CELL DISTRIBUTION WIDTH SD 43.7 fL (36.4-46.3); WHITE BLOOD COUNT 4.28 K/uL (4.8-10.8)
[~2017-03-22] VITALS: Ht 180.3 cm; Wt 108.9 kg
[2017-03-22] VITALS (8 sets, daily range): BP systolic 129–158; BP diastolic 66–80; PULSE 72–83; TEMP 36–36.7; O2SAT 92–97; Ht 180.3 cm; Wt 108.9 kg
[~2017-03-22 05:48] MED LIST changes: -METR-163 PO; -PANT1TAB48 PO; -SULF800T23 PO; -TESTOSTERONE INJ
[2017-03-22] MEDS ORDERED: CEFAZOLIN 2000MG IV PUSH 10 ML IV SCH (06:00)
[2017-03-22] MEDS ORDERED: LACTATED RINGER'S 1000ML 1,000 ML IV SCH ×2 (06:00)
[2017-03-22] MEDS ORDERED: MIDAZOLAM HCL 1 MG/ML 2ML VIAL ONE (06:36)
[2017-03-22] MEDS ORDERED: FENTANYL CITRATE INJ 50 MCG/1 ML 2 ML VIAL ONE ×4 (06:36→09:54)
[2017-03-22] MEDS ORDERED: BACITRACIN 50000 UNIT VIAL ONE (06:56)
[2017-03-22] MEDS ORDERED: EpINEphrine INJ 1MG/ML AMP 1 MG/ML AMP ONE (06:58)
[2017-03-22] MEDS: BUPIVACAINE 0.5 % 5 MG/1 ML MPF 30ML VIAL ONE ×2 (06:58→08:27)
[2017-03-22] MEDS ORDERED: [UNRECOGNIZED DRUG - REMARK] OPB (07:00)
[2017-03-22] MEDS ORDERED: FLUMAZENIL 0.1 MG/1 ML 10 ML VIAL IV PRN (07:15)
[2017-03-22] MEDS ORDERED: NALOXONE HCL 0.4 MG/1 ML VIAL/CARP IV PRN ×3 (07:15→10:30)
[2017-03-22] MEDS ORDERED: PHENYLEPHRINE 100MCG/ML 5ML SYR IV PRN (07:15)
[2017-03-22] MEDS ORDERED: ONDANSETRON INJ 2 MG/ML 2 ML VIAL IV PRN ×2 (07:15→10:30)
[2017-03-22] MEDS ORDERED: EpHEDrine SULFATE INJ 50 MG/ML AMP IV PRN (07:15)
[2017-03-22] MEDS ORDERED: ATROPINE SULFATE 0.1 MG/ML 5ML SYR IV PRN (07:15)
[2017-03-22] MEDS ORDERED: LABETALOL HCL IV 5 MG/ML 20ML IV PRN (07:15)
[2017-03-22] MEDS ORDERED: MEPERIDINE HCL 25 MG/ML CARP IV PRN (07:15)
--- NOTE | 2017-03-22 07:37 | History and Physical ---
History & Physical Date Mar 22, 2017. Chief Complaint Back and leg pain History of Present Illness The patient is a 76 year old male with complaints of Past Medical/Surgical History Medical Problems: (1) LLQ abdominal pain Additional History Hepatic Disease: No Endocrine Disorder: No Kidney Disease: No Hypertension: No Heart Disease: No Bleeding Tendencies: No Infectious Diseases: No Allergies Coded Allergies: Grass (Verified Allergy, Unknown, WATERY EYES, 03/22/17) Sertraline (Verified Adverse Reaction, Unknown, DIZZINESS, 03/22/17) Zolpidem (Verified Adverse Reaction, Unknown, HALLUCINIATIONS/SUICIDAL THOUGHTS , 03/22/17) Home Medications Scheduled Alpha-Lipoic Acid (Thioctic Ac (Alpha Lipoic Acid), 400 MG PO QAM Amoxicillin (Amoxil), 500 MG PO UD Aspirin (Aspirin Chewable), 81 MG PO HS Coenzyme Q10 (Ubidecarenone) (Coq-10), 1 TAB PO HS Lysine Hcl (L-Lysine), 1,000 MG PO QAM Melatonin-Pyridoxine (Melatonin), 10 MG PO HS Misc Natural Products (Osteo Bi-Flex Advanced Do), 1 TAB PO BID Multiple Vitamins W/ Minerals (Ocuvite), 1 TAB PO HS Psyllium (Metamucil Free & Natural), 1 DOSE PO QAM Ropinirole (Requip), 0.25 MG PO BID Terazosin Hcl (Hytrin), 10 MG PO HS Trazodone Hcl (Trazodone), 50 MG PO HS Valacyclovir (Valtrex), 500 MG PO QAM [eye gtts ?? name], 1 DROP OPB BID [testosterone ], 200 MG INJ [id number] Scheduled PRN Fluticasone Propionate (Nasal) (Flonase Allergy Relief), 1 SPRAY [place] DAILY PRN for PRN Tramadol (Ultram), 1-2 TAB PO Q6H PRN for Pain Physical Examination Skin: warm/dry, no rash Eyes: normal inspection, EOMI, sclerae normal ENT: normal ENT inspection, pharynx normal Head: normocephalic, atraumatic Neck: supple, no adenopathy, trachea midline Respiratory/Chest: lungs clear, normal breath sounds, no respiratory distress Cardiovascular: regular rate, rhythm, no edema, no murmur Abdomen / GI: normal bowel sounds, non tender Back: normal inspection Extremities: normal inspection, normal range of motion Neurologic/Psych: no motor/sensory deficits, alert, normal reflexes, oriented x 3 Diagnosis Lumbar spinal stenosis Plan of Treatment Hardware removal L3 4 decompression fusion T12 to L3
--- NOTE | 2017-03-22 07:37 | History & Physical Bridge Note ---
H&P Re-Evaluation Bridge Note: I have examined the patient, reviewed the History & Physical and in the interval since the performance of the History & Physical I have noted the following changes of clinical significance: No changes noted
[2017-03-22] MEDS ORDERED: ALBUMIN HUMAN 5% 12.5 GM/250 ML VIAL IV ONE (08:31)
[2017-03-22] MEDS ORDERED: HYDROmorphone INJ 2 MG/ML SYR/VIAL ONE (08:32)
[2017-03-22] MEDS ORDERED: PROPOFOL IV EMULSION 10 MG/ML 20 ML VIAL IV ONE (10:18)
[2017-03-22] MEDS ORDERED: LIDOCAINE HCL 2% 2 ML VIAL (20MG/ML) ONE (10:18)
[2017-03-22] MEDS ORDERED: ONDANSETRON INJ 2 MG/ML 2 ML VIAL ONE ×2 (10:18→10:41)
[2017-03-22] MEDS ORDERED: EpHEDrine SULFATE 50MG/5ML SYR ONE (10:18)
[2017-03-22] MEDS ORDERED: DEXAMETHASONE SOD INJ 4 MG/ML VIAL ONE (10:18)
[2017-03-22] MEDS ORDERED: ROCURONIUM BROMIDE 10 MG/ML 5 ML VIAL IV ONE (10:18)
[2017-03-22] MEDS ORDERED: PHENYLEPHRINE 100MCG/ML 5ML SYR ONE (10:18)
[2017-03-22] MEDS ORDERED: FLOSEAL HEMOSTATIC MATRIX 10ML TOP ONE (10:24)
[2017-03-22] MEDS: LACTATED RINGER'S 1000ML 1,000 ML IV SCH ×2 (10:29→20:32)
[2017-03-22] MEDS ORDERED: SODIUM CHLORIDE 0.9% 1000ML 1,000 ML IV SCH (10:29)
[2017-03-22] MEDS ORDERED: hydrOXYzine HCL 25 MG TAB PO PRN (10:30)
[2017-03-22] MEDS ORDERED: ALUMINUM/MAGNESIUM SUSP 30 ML UDC PO PRN (10:30)
[2017-03-22] MEDS ORDERED: FAMOTIDINE 20 MG TAB PO PRN (10:30)
[2017-03-22] MEDS ORDERED: DO NOT ADMINISTER PNEUMOCOCCAL VACCINE PRN (10:30)
[2017-03-22] MEDS ORDERED: DO NOT ADMINISTER FLU VACCINE PRN (10:30)
[2017-03-22] MEDS ORDERED: PROMETHAZINE HCL INJ 12.5 MG in SODIUM CHLORIDE 0.9% 50ML 50 ML IV PRN (10:30)
[2017-03-22] MEDS ORDERED: BISACODYL 10 MG SUPP PR PRN (10:30)
[2017-03-22] MEDS ORDERED: LORAZEPAM INJ 0.5 MG in SYRINGE 0 ML IV PRN (10:30)
[2017-03-22] MEDS ORDERED: MAGNESIUM HYDROXIDE SUSP 30 ML UDC PO PRN (10:30)
[2017-03-22] MEDS ORDERED: FLUTICASONE PROPIONATE NA SPR 16 GM BTL NAE PRN (10:30)
[2017-03-22] MEDS ORDERED: HYDROmorphone HCL 0.5MG/ML 50 ML CASSETTE IV PRN (10:30)
[2017-03-22] MEDS ORDERED: ACETAMINOPHEN IV 100 ML IV PRN (10:30)
[2017-03-22] MEDS ORDERED: METOCLOPRAMIDE HCL INJ 5 MG/ML 2 ML VIAL IV PRN (10:30)
[2017-03-22] MEDS ORDERED: SOD PHOSPHATE/SOD BIPHOSPHATE ENEMA 132 ML BTL PR PRN (10:30)
[2017-03-22 10:33] LABS: HEMATOCRIT 36.7 % (42-52); HEMOGLOBIN 12.6 g/dL (14.0-18.0)
--- NOTE | 2017-03-22 10:38 | [facility] Operative Report ---
Operative Report Operative Date Mar 22, 2017. Pre-Operative Diagnosis Lumber spinal stenosis Post-Operative Diagnosis Lumbar Spinal Stenosis Procedure(s) Performed #1 removal posterior instrumentation L3 4. #2 exploration of fusion L3 4. #3 lumbar decompression medial facetectomies L1 to L2 3. #4 posterior spinal fusion T11 to L4. #5 placement posterior segmental transportation T12 to L4. #6 interbody fusion L1 to L2 3. #7 placement peek cage 10 x 26 mm L1 2 and 12 x 26 mm L2 3. #6 placement locally harvested morcellized autograft and posterior gutters. #7 placement infuse collagen sponge combined Master graft in the posterior lateral gutters and ostial amp in the interbody spaces. Surgeon Kettle Operator Head Surgeon(s) Cassandra Duncan PA-C Estimated Blood Loss 850ml Findings Severe spinal stenosis Specimens a. Removed Lumber Hardware Description of Procedure Patient was met with preoperatively case discussed all questions addressed. After informed consent obtained patient was taken to the operative suite underwent intubation placed in a prone position the [place] table top Jemal frame. All bony prominences well-padded eyes inspected to ensure no external pressure placed upon them. This point the thoracal lumbar spine is prepped and draped nostril fashion. Sharp dissection with the assistance of Bovie cautery was performed onto an exposing the lamina and transverse processes of T11 T12 L1 L2-L3 L4-bilaterally. I then proceeded remove the hardware at L3 4 weeks for the fusion mass noting it to be intact. Then performed a complete laminectomy of L2 and L1 from a caudal cephalad fashion dressing severe central lateral recess stenosis as well as a massive Iske herniation at L1-2. After complete decompression pedicle screws were placed in T12 L1 L2 L3-L4 bilaterally with assistance of fluoroscopy and the probably size penny placed. Through a transforaminal approach on the right a complete discectomy of L2-3 was performed and plate created to subcortical bleeding bone and a 12 x 26 mm peek cage filled with ostial amp bone graft tapped in position. Then proceeded L1-2 and again through a transforaminal approach complete discectomy performed and plate created to subcortical bleeding bone and a 10 x 26 mm peek cage filled with ostial amp tapped in position. Brought in and locked and final position bilaterally. The transverse processes of T11 T12 L1 L2 L3 L4 burred to subcortical bleeding bone. Infuse collagen sponge mask graft locally harvested morcellized autograft placed the posterior gutters. 15 round TROY drain inserted. Incision then closed with 1 Vicryl fascia 2-0 Vicryl subcutaneous cutaneously 4 Monocryl for final skin closure Steri-Strips sterile dressings placed. Patient we can taken to PACU stable condition. Please note Cassandra Howard was present at the entire procedure involved in patient positioning complex portions of the surgery and final skin closure. I attest to the content of the Intraoperative Record and any orders documented therein. Any exceptions are noted below.
[2017-03-22] MEDS ORDERED: GLYCOPYRROLATE INJ 0.2 MG/ML VIAL ONE (10:41)
[2017-03-22] MEDS ORDERED: VOLUVEN IN NSS ONE (10:41)
[2017-03-22] MEDS ORDERED: NEOSTIGMINE METHYLSULFATE 1 MG/ML 10ML VIAL ONE (10:41)
--- NOTE | 2017-03-22 10:47 | DIAGNOSTIC IMAGING REPORT ---
INTRAOPERATIVE RADIOGRAPHS CLINICAL HISTORY: L3-L4 hardware removal. T12-L3 spinal fusion. Fluoroscopy time: 21 seconds. FINDINGS: 4 spot fluoroscopic views of the lumbar spine are presented. There is been discectomy at L1-L2, L2-L3, L3-L4, and L4-L5. There has been laminectomy and posterior fusion, likely from T12 -L4. Testicular screws are present at all levels. Interpedicular screw fragments are present in L5. IMPRESSION: Intraoperative images from thoracolumbar fusion as above. See operative report for detailed findings. Electronically signed by: Dwaine Hardin M.D. 03/22/2017 10:45 AM Dictated Date/Time: 03/22/2017 10:43 AM
[2017-03-22] MEDS ORDERED: HYDROmorphone HCL 0.5MG/ML 50 ML CASSETTE ONE (10:57)
[2017-03-22] MEDS: HYDROmorphone INJ 1 MG/ML SYR IV PRN ×4 (11:25→11:40)
[2017-03-22] MEDS: MoRPHine SULFATE 10 MG/ML CARP/VIAL IV PRN ×3 (11:45→11:55)
--- NOTE | 2017-03-22 14:35 | Anesthesiology Progress Note ---
Anesthesia Post Op Note Date & Time Mar 22, 2017 at 14:35 Vital Signs Pain Intensity: 3.0 Vital Signs Past 12 Hours Date Time Temp Pulse Resp B/P (MAP) Pulse Ox O2 Delivery O2 Flow Rate FiO2 03/22/17 13:40 36.4 75 17 148/74 (98) 97 Nasal Cannula 3.0 03/22/17 13:10 36.4 77 18 129/66 (87) 94 Nasal Cannula 3.0 03/22/17 12:40 96 Nasal Cannula 4.0 03/22/17 12:40 96 Nasal Cannula 4.0 03/22/17 12:40 36.0 83 16 145/72 (96) 96 Nasal Cannula 2.0 03/22/17 12:20 36.2 74 16 123/56 97 Nasal Cannula 4 03/22/17 12:10 76 16 123/64 99 Nasal Cannula 4 03/22/17 12:00 78 16 125/68 99 Nasal Cannula 4 03/22/17 11:50 72 16 146/72 99 Nasal Cannula 4 03/22/17 11:40 36.2 69 16 144/57 99 Nasal Cannula 4 03/22/17 11:30 64 16 142/69 100 Nasal Cannula 4 03/22/17 11:20 63 16 135/65 100 Nasal Cannula 4 03/22/17 11:11 68 16 147/61 100 Oxymask 10 03/22/17 11:01 70 16 137/57 100 Oxymask 10 03/22/17 10:53 36.2 69 16 130/64 99 Oxymask 10 03/22/17 06:30 36.4 76 18 149/80 92 Room Air Notes Mental Status: alert / awake / arousable, participated in evaluation Pt Amnestic to Procedure: Yes Nausea / Vomiting: adequately controlled Pain: adequately controlled Airway Patency, RR, SpO2: stable & adequate BP & HR: stable & adequate Hydration State: stable & adequate Anesthetic Complications: no major complications apparent
[2017-03-22] MEDS: CEFAZOLIN IV 2,000 MG in SYRINGE 0 ML IV SCH ×2 (16:00→23:26)
[2017-03-22] MEDS ORDERED: CEFAZOLIN IV 2,000 MG in DEXTROSE 5% 50ML 50 ML IV SCH (16:00)
[2017-03-22] MEDS ORDERED: NURSING DECISION MEDICATION ORDER SCH (17:15)
[2017-03-22] MEDS ORDERED: COUGH DROP (SUGAR FREE) LOZ 24 LOZ/1 BOX ONE (17:17)
[2017-03-22] MEDS ORDERED: COUGH DROP (SUGAR FREE) LOZ 24 LOZ/1 BOX PO PRN (18:00)
[2017-03-22] MEDS: LORAZEPAM 0.5 MG TAB PO PRN ×2 (20:10→21:20)
[2017-03-22] MEDS: TRAZODONE HCL 50 MG TAB PO SCH ×2 (21:00→23:05)
[2017-03-22] MEDS: ASPIRIN 81 MG ECTAB PO SCH (21:20)
[2017-03-22] MEDS: ROPINIROLE HCL 0.25 MG TAB PO SCH (21:21)
[2017-03-22] MEDS: DOCUSATE SODIUM/SENNA 50/8.6MG TAB PO SCH (22:26)
[2017-03-22] MEDS ORDERED: NURSING VERBAL MED ORDER ONE (23:15)
[2017-03-23] VITALS (8 sets, daily range): BP systolic 105–153; BP diastolic 60–68; PULSE 83–109; TEMP 36.7–38.8; O2SAT 91–97
[2017-03-23] MEDS: LACTATED RINGER'S 1000ML 1,000 ML IV SCH (02:47)
[2017-03-23] MEDS ORDERED: DC PCA ONE (06:00)
[2017-03-23] MEDS ORDERED: HYDROmorphone INJ 0.5 MG/0.5 ML SYR IV PRN (06:01)
[2017-03-23] MEDS ORDERED: NURSING VERBAL MED ORDER ONE ×2 (06:30→18:45)
[2017-03-23 06:31] LABS: BASO % 0.2 %; BASO ABS # 0.01 K/uL (0-0.2); HEMATOCRIT 32.2 % (42-52); HEMOGLOBIN 10.7 g/dL (14.0-18.0); IG# 0.01 K/uL (0.00-0.02); LYMPH % 22.7 %; LYMPH ABS # 0.92 K/uL (1.2-3.4); MEAN CELL VOLUME 91.2 fL (80-100); MEAN CORPUSCULAR HEMOGLOBIN 30.3 pg (25-34); MEAN CORPUSCULAR HGB CONC 33.2 g/dl (32-36); MEAN PLATELET VOLUME 8.4 fL (7.4-10.4); MONO % 21.9 %; MONO ABS # 0.89 K/uL (0.11-0.59); NEUT ABS # 2.23 K/uL (1.4-6.5); PLATELET COUNT 164 K/uL (130-400); RED CELL DISTRIBUTION WIDTH CV 13.1 % (11.5-14.5); RED CELL DISTRIBUTION WIDTH SD 43.5 fL (36.4-46.3); WHITE BLOOD COUNT 4.06 K/uL (4.8-10.8)
[2017-03-23 07:02] LABS: CALCIUM 7.8 mg/dl (8.5-10.1); CREATININE 1.05 mg/dl (0.60-1.40); POTASSIUM 3.9 mmol/L (3.5-5.1)
--- NOTE | 2017-03-23 08:19 | Clinical Documentation Query ---
COLLETTE Jhaveri : CLINICAL DOCUMENTATION QUERY Patient is a 76 year old male who on 03/22 underwent removal of lumbar instrumentation, posterior thoracolumbar decompression and fusion. EBL for the procedure was 850 ml's with subsequently documented losses of an additional 910 ml's to date. Preoperative H&H was 15.9 g/dl and 45.7%. POD #1, repeat values of 10.7 g/dl and 32.2%. He is being monitored with serial hematology and I/O including drain outputs. Please clarify as clinically appropriate. Thank you. In your clinical opinion is this patient being managed for: ( ) Acute blood loss anemia ( ) Not Agree ( ) Other explanation of clinical findings (Please Explain) ( ) Unable to determine (Please Define) ( ) Need to Discuss The medical record reflects the following clinical findings, treatment, and risk factors. Clinical Indicators: As above Treatment: He is being monitored with serial hematology and I/O including drain outputs Risk Factors: Acute perioperative blood losses. Please clarify and document your clinical opinion in the progress notes and discharge summary. Terms such as "probable", "suspected", "likely", "questionable", "possible", or "still to be ruled out" are acceptable. IF IN AGREEMENT, YOU MUST DOCUMENT ABOVE DIAGNOSTIC STATEMENT IN DAILY PROGRESS NOTES AND DISCHARGE SUMMARY. This document is not part of the patient's record. Thank You, Andrew Gutierrez RN [phone]
--- NOTE | 2017-03-23 08:33 | Progress Note ---
Progress Note Date of Service Mar 23, 2017. Progress Note Patient's back pain is controlled. Leg symptoms improved. On exam he is in chair at bedside. He is noting some shivers. Denies any fevers chills or nausea or vomiting. He does have good strength testing. Assessment status post thoracal lumbar fusion per plan this time we will initiate physical therapy. We will consult medicine for medical management evaluation. Anticipate him being of the next few days.
[2017-03-23] MEDS: ROPINIROLE HCL 0.25 MG TAB PO SCH ×2 (08:39→20:02)
[2017-03-23] MEDS: OXYCODONE HCL IR 5 MG TAB (IMMEDIATE RELEASE) PO PRN ×4 (08:40→22:39)
[2017-03-23 08:47] LABS: HEMATOCRIT 33.8 % (42-52); HEMOGLOBIN 11.7 g/dL (14.0-18.0)
--- NOTE | 2017-03-23 08:58 | Anesthesiology Progress Note ---
Anesthesia Post Op Note Date & Time Mar 23, 2017 at 08:57 Vital Signs Pain Intensity: 8.0 Vital Signs Past 12 Hours Date Time Temp Pulse Resp B/P (MAP) Pulse Ox O2 Delivery O2 Flow Rate FiO2 03/23/17 07:20 Room Air 03/23/17 07:02 36.7 91 18 121/65 (83) 91 Room Air 03/23/17 03:11 37.0 83 16 130/68 (88) 93 Room Air 03/22/17 23:37 Room Air 03/22/17 23:28 36.7 77 18 130/74 (92) 94 Room Air Notes Mental Status: alert / awake / arousable, participated in evaluation Pt Amnestic to Procedure: Yes Nausea / Vomiting: adequately controlled Pain: adequately controlled Airway Patency, RR, SpO2: stable & adequate BP & HR: stable & adequate Hydration State: stable & adequate Anesthetic Complications: no major complications apparent
--- NOTE | 2017-03-23 12:17 | Medical Consult ---
Consultation Date of Consultation: Mar 23, 2017. Attending Physician: Main Grover D.O. Reason for Consultation: medical co management History of Present Illness 76 years old man with PMHx of osteoarthritis, sick sinus versus heart block s/p pacemaker and BPH . he had multiple back surgeries in the past. complained of lower back pain and failed out patient conservative measures. presented for an elective exploration and fusion of his lumbar spine. procedure went uneventful. We were consulted for medical Co management Social History Smoking Status: Former Smoker Drug Use: none Marital Status: Allergies Coded Allergies: Grass (Verified Allergy, Unknown, WATERY EYES, 03/22/17) Sertraline (Verified Adverse Reaction, Unknown, DIZZINESS, 03/22/17) Zolpidem (Verified Adverse Reaction, Unknown, HALLUCINIATIONS/SUICIDAL THOUGHTS , 03/22/17) Current Inpatient Medications Current Inpatient Medications Medications (Trade) Dose Ordered Sig/Nils Route Start Time Stop Time Status Last Admin Dose Admin Promethazine HCl 12.5 mg/Sodium Chloride 50.5 ml @ 202 mls/hr Q6H PRN IV 03/22/17 10:30 04/21/17 10:29 Ondansetron HCl (Zofran Inj) 4 mg Q6H PRN IV 03/22/17 10:30 04/21/17 10:29 Metoclopramide HCl (Reglan Inj) 10 mg Q6H PRN IV 03/22/17 10:30 04/21/17 10:29 Lorazepam (Ativan Tab) 0.5 mg Q8H PRN PO 03/22/17 10:30 04/21/17 10:29 03/22/17 21:20 0.5 MG Lorazepam 0.5 mg/ Syringe 0.25 ml @ 1 mls/min Q8H PRN IV 03/22/17 10:30 04/21/17 10:29 Pneumococcal Polysaccharide Vaccine 1 ea PRN PRN N/A 03/22/17 10:30 04/21/17 10:29 Influenza Virus Vacc Triv Types A&B 1 ea PRN PRN N/A 03/22/17 10:30 04/21/17 10:29 Polyethylene (Miralax Powder Packet) 17 gm Q6 PO 03/24/17 06:00 04/23/17 05:59 Bisacodyl (Dulcolax Supp) 10 mg DAILY PRN MS 03/22/17 10:30 04/21/17 10:29 Magnesium Hydroxide (Milk Of Magnesia Susp) 30 ml DAILY PRN PO 03/22/17 10:30 04/21/17 10:29 Hydromorphone HCl (Dilaudid Inj) 0.5-1mg prn moder... Q3H PRN IV 03/23/17 06:01 04/06/17 06:00 Oxycodone HCl (Roxicodone Immediate Rel Tab) 5-10mg prn moderate to sev... Q4H PRN PO 03/23/17 06:00 04/06/17 05:59 03/23/17 08:40 10 MG Acetaminophen (Tylenol Tab) 1,000 mg Q8H PRN PO 03/22/17 10:30 04/21/17 10:29 Acetaminophen 100 ml @ 400 mls/hr Q8H PRN IV 03/22/17 10:30 04/21/17 10:29 Naloxone HCl (Narcan Inj) 0.1 mg Q5M PRN IV 03/22/17 10:30 04/21/17 10:29 Senna/Docusate Sodium (Senokot S Tab) 2 tab HS PO 03/22/17 21:00 04/21/17 20:59 03/22/17 22:26 2 TAB Sodium Biphosphate/ Sodium Phosphate (Fleet Enema) 132 ml ONE PRN MS 03/22/17 10:30 04/21/17 10:29 Hydroxyzine HCl (Vistaril Tab) 25 mg Q8H PRN PO 03/22/17 10:30 04/21/17 10:29 Al Hydroxide/Mg Hydroxide (Maalox Susp) 30 ml Q6H PRN PO 03/22/17 10:30 04/21/17 10:29 Famotidine (Pepcid Tab) 20 mg Q12 PRN PO 03/22/17 10:30 04/21/17 10:29 Diphenhydramine HCl (Benadryl Cap) 25 mg Q6H PRN PO 03/22/17 10:30 04/21/17 10:29 Aspirin (Ecotrin Tab) 81 mg HS PO 03/22/17 21:00 04/21/17 20:59 03/22/17 21:20 81 MG Fluticasone Propionate (Flonase Nasal [place]) 1 sprays DAILY PRN ZHANNA 03/22/17 10:30 04/21/17 10:29 Ropinirole HCl (Requip Tab) 0.25 mg BID PO 03/22/17 21:00 04/21/17 20:59 03/23/17 08:39 0.25 MG Terazosin HCl (Hytrin Cap) 10 mg HS PO 03/22/17 21:00 04/21/17 20:59 03/22/17 21:21 10 MG Tramadol HCl (Ultram Tab) 50 mg Q6H PRN PO 03/22/17 10:30 04/21/17 10:29 Trazodone HCl (Desyrel Tab) 50 mg HS PO 03/22/17 21:00 04/21/17 20:59 03/22/17 23:05 50 MG Valacyclovir HCl (Valtrex Tab) 500 mg QAM PO 03/23/17 09:00 04/06/17 08:59 03/23/17 08:39 500 MG Menthol (Nice Jakob) 1 jakob PRN PRN PO 03/22/17 18:00 04/21/17 17:59 Cyclobenzaprine HCl (Flexeril Tab) 10 mg Q8 PRN PO 03/23/17 08:30 04/22/17 08:29 Review of Systems Constitutional: No fever, No chills, No sweats, No weight loss, No weakness, No fatigue, No problem reported Eyes: No worsening of vision, No eye pain, No redness, No discharge, No diplopia, No problem reported ENT: No hearing loss, No unusual epistaxis, No nasal symptoms, No sore throat, No tinnitus, No dental problems, No trouble swallowing, No problem reported Respiratory: No cough, No sputum, No wheezing, No shortness of breath, No dyspnea on exertion, No dyspnea at rest, No hemoptysis, No problem reported Cardiovascular: No chest pain, No orthopnea, No PND, No edema, No claudication , No palpitations, No problem reported Abdomen: No pain, No nausea, No vomiting, No diarrhea, No constipation, No GI bleeding, No problem reported Musculoskeletal: + joint pain (back pain), No muscle pain, No swelling, No calf pain, No problem reported Genitourinary - Male: No hematuria, No dysuria, No urinary frequency, No urinary urgency, No urinary hesitancy, No urinary retention, No urinary incontinence, No penile discharge, No lesions, No impotence, No problem reported Neurologic: No memory loss, No paralysis, No weakness, No numbness/tingling, No vertigo, No balance problems, No problem reported Psychiatric: No depression symptoms, No anhedonism, No anxiety, No insomnia, No substance abuse, No problem reported Endocrine: No fatigue, No excessive thirst, No excessive urination, No problem reported Hematologic / Lymphatic: No abnormal bleeding/bruising, No clotting problems, No swollen lymph nodes, No night sweats, No problem reported Integumentary: No rash, No itch, No new/changing skin lesions, No color change , No bleeding, No problem reported Allergic / Immunologic: No environmental allergies, No seasonal allergies, No pet sensitivities, No food allergies, No hives, No frequent infections, No poor healing, No prolonged convalescence, No problem reported Physical Exam Date Time Temp Pulse Resp B/P (MAP) Pulse Ox O2 Delivery O2 Flow Rate FiO2 03/23/17 07:20 Room Air 03/23/17 07:02 36.7 91 18 121/65 (83) 91 Room Air 03/23/17 03:11 37.0 83 16 130/68 (88) 93 Room Air 03/22/17 23:37 Room Air 03/22/17 23:28 36.7 77 18 130/74 (92) 94 Room Air 03/22/17 19:49 36.6 78 18 158/74 (102) 94 Room Air 03/22/17 15:43 36.4 76 18 132/80 (97) 97 Nasal Cannula 3.0 03/22/17 14:40 36.6 72 18 143/73 (96) 96 Nasal Cannula 3.0 03/22/17 13:40 36.4 75 17 148/74 (98) 97 Nasal Cannula 3.0 03/22/17 13:10 36.4 77 18 129/66 (87) 94 Nasal Cannula 3.0 03/22/17 12:40 96 Nasal Cannula 4.0 03/22/17 12:40 96 Nasal Cannula 4.0 03/22/17 12:40 36.0 83 16 145/72 (96) 96 Nasal Cannula 2.0 03/22/17 12:20 36.2 74 16 123/56 97 Nasal Cannula 4 03/22/17 12:10 76 16 123/64 99 Nasal Cannula 4 03/22/17 12:00 78 16 125/68 99 Nasal Cannula 4 03/22/17 11:50 72 16 146/72 99 Nasal Cannula 4 03/22/17 11:40 36.2 69 16 144/57 99 Nasal Cannula 4 03/22/17 11:30 64 16 142/69 100 Nasal Cannula 4 03/22/17 11:20 63 16 135/65 100 Nasal Cannula 4 03/22/17 11:11 68 16 147/61 100 Oxymask 10 03/22/17 11:01 70 16 137/57 100 Oxymask 10 03/22/17 10:53 36.2 69 16 130/64 99 Oxymask 10 General Appearance: WD/WN, no apparent distress Head: normocephalic, atraumatic Eyes: normal inspection, EOMI ENT: normal ENT inspection, hearing grossly normal Neck: supple Respiratory/Chest: chest non-tender, lungs clear, normal breath sounds, no respiratory distress, no accessory muscle use Cardiovascular: regular rate, rhythm, no edema, no gallop, no JVD, no murmur, normal peripheral pulses Abdomen/GI: non tender, soft, no organomegaly, no pulsatile mass Back: normal inspection Extremities/Musculoskelatal: normal inspection, no calf tenderness, normal capillary refill, no pedal edema, normal range of motion Neurologic/Psych: freight tallier II-XII nml as tested, no motor/sensory deficits, alert, normal mood/affect, normal reflexes, oriented x 3 Skin: normal color, warm/dry, no rash Laboratory Results Last 24 Hours Test 03/23/17 05:58 03/23/17 08:36 White Blood Count 4.06 K/uL Red Blood Count 3.53 M/uL Hemoglobin 10.7 g/dL 11.7 g/dL Hematocrit 32.2 % 33.8 % Mean Corpuscular Volume 91.2 fL Mean Corpuscular Hemoglobin 30.3 pg Mean Corpuscular Hemoglobin Concent 33.2 g/dl Platelet Count 164 K/uL Mean Platelet Volume 8.4 fL Neutrophils (%) (Auto) 55.0 % Lymphocytes (%) (Auto) 22.7 % Monocytes (%) (Auto) 21.9 % Eosinophils (%) (Auto) 0.0 % Basophils (%) (Auto) 0.2 % Neutrophils # (Auto) 2.23 K/uL Lymphocytes # (Auto) 0.92 K/uL Monocytes # (Auto) 0.89 K/uL Eosinophils # (Auto) 0.00 K/uL Basophils # (Auto) 0.01 K/uL RDW Standard Deviation 43.5 fL RDW Coefficient of Variation 13.1 % Immature Granulocyte % (Auto) 0.2 % Immature Granulocyte # (Auto) 0.01 K/uL Sodium Level 134 mmol/L Potassium Level 3.9 mmol/L Chloride Level 98 mmol/L Carbon Dioxide Level 32 mmol/L Anion Gap 4.0 mmol/L Blood Urea Nitrogen 21 mg/dl Creatinine 1.05 mg/dl Est Creatinine Clear Calc Drug Dose 77.5 ml/min Estimated GFR () 80.7 Estimated GFR (Non- 69.6 BUN/Creatinine Ratio 20.0 Random Glucose 142 mg/dl Calcium Level 7.8 mg/dl Assessment & Plan 76-year-old man with past medical history of obstructive sleep apnea, sick sinus syndrome versus heart block status post pacemaker presented to the hospital for an elective lumbar spine surgery. Assessment Status post exploration/decompression/exchange of prosthesis lumbar spine Obstructive sleep apnea noncompliant with CPAP, was instructed to adhere to CPAP use Back pain within expected range postsurgical procedure Constipation Plan Status post orthopedic procedure, went uneventful Patient tolerated procedure well with minimal blood loss Appears to be stable Continue outpatient medications Follow-up labs Ensure adequate oral/parenteral intake Pain management Physical therapy initiation as per primary orthopedic team DVT prophylaxis as per the choice of primary orthopedic team Add stool softener
[2017-03-23] MEDS: SENNA 8.8 MG/5 ML UDP PO SCH ×2 (13:18→20:03)
[2017-03-23] MEDS: TRAMADOL HCL 50 MG TAB PO PRN (15:40)
[2017-03-23] MEDS: ACETAMINOPHEN 500 MG TAB PO PRN (17:18)
--- NOTE | 2017-03-23 17:41 | Progress Note ---
Progress Note Date of Service Mar 23, 2017. Progress Note Was called by the nurse as the patient had a fever of 38.8. Ordered blood culture, UA with urine culture. Ordered chest x-ray rule out atelectasis/aspiration pneumonia Initiate broad-spectrum antibiotics vancomycin/Zosyn Ordered lactobacillus to protect him from C. difficile Incentive spirometer to treat any underlying atelectasis Nursing staff are paging primary orthopedic team to take a permission to allow me to remove the dressing and examined the wound
[2017-03-23] MEDS ORDERED: VANCOMYCIN CONSULT ACTIVE PRN (18:00)
[2017-03-23] MEDS ORDERED: PIPERACILL/TAZOBAC CONSULT ACTIVE PRN (18:00)
[2017-03-23] MEDS ORDERED: PIPERACILL/TAZOBAC IV 3.375 GM in DEXTROSE 5% 100ML IV ONE (18:15)
[2017-03-23] MEDS ORDERED: VANCOMYCIN INJ 2,750 MG in SODIUM CHLORIDE 0.9% 500ML 500 ML IV SCH (18:30)
[2017-03-23] MEDS: LACTOBACILLUS ACIDOPHILUS (FLORANEX) TAB PO SCH (18:43)
[2017-03-23] MEDS: SODIUM CHLORIDE 0.9% 1000ML 1,000 ML IV SCH (19:22)
[2017-03-23] MEDS: ASPIRIN 81 MG ECTAB PO SCH (20:02)
[2017-03-23] MEDS: DOCUSATE SODIUM/SENNA 50/8.6MG TAB PO SCH (20:02)
[2017-03-23] MEDS: TRAZODONE HCL 50 MG TAB PO SCH (20:03)
--- NOTE | 2017-03-23 20:09 | DIAGNOSTIC IMAGING REPORT ---
CHEST ONE VIEW PORTABLE CLINICAL HISTORY: fever COMPARISON STUDY: 02/21/2017 FINDINGS: The cardiac and mediastinal contours remain stable. There is a left subclavian dual-chamber central venous pacemaker present. There is mild interstitial prominence, unchanged from the prior study and likely chronic. There is no overt failure. There are no pleural effusions. There is no lobar consolidation. The previously identified right perihilar nodular opacity is less evident on the current study.[ IMPRESSION: Relatively stable findings. No evidence of acute parenchymal consolidation. No evidence of failure. Electronically signed by: Quinn Hood M.D. 03/23/2017 8:07 PM Dictated Date/Time: 03/23/2017 8:05 PM
[2017-03-23] MEDS ORDERED: VANCOMYCIN INJ 500 MG in SODIUM CHLORIDE 0.9% 250ML 250 ML IV SCH (21:00)
[2017-03-23] MEDS ORDERED: PIPERACILL/TAZOBAC IV 3.375 GM in DEXTROSE 5% 100ML 100 ML IV SCH (22:00)
[2017-03-23] MEDS: PIPERACILL/TAZOBAC IV 3.375 GM in DEXTROSE 5% 100ML IV SCH (23:17)
[2017-03-24] VITALS (8 sets, daily range): BP systolic 98–186; BP diastolic 54–74; PULSE 67–102; TEMP 36–37.6; O2SAT 92–95
[2017-03-24] MEDS: SODIUM CHLORIDE 0.9% 1000ML 1,000 ML IV SCH ×3 (02:16→16:06)
[2017-03-24] MEDS: OXYCODONE HCL IR 5 MG TAB (IMMEDIATE RELEASE) PO PRN ×4 (04:03→21:44)
[2017-03-24] MEDS: VANCOMYCIN INJ 1,500 MG in SODIUM CHLORIDE 0.9% 500ML 500 ML IV SCH ×2 (05:26→18:17)
[2017-03-24] MEDS: POLYETHYLENE (MIRALAX) 17 GM PACK PO SCH ×4 (05:39→23:30)
[2017-03-24 06:58] LABS: CREATININE 0.82 mg/dl (0.60-1.40)
[2017-03-24] MEDS ORDERED: RXC5 PO (07:46)
--- NOTE | 2017-03-24 07:46 | Discharge Instructions ---
Discharge Instructions Date of Service Mar 24, 2017. Admission Reason for Admission: Lumbar Spinal Stenosis Discharge Discharge Diagnosis / Problem: lumbar stenosis Discharge Goals Goal(s): Improve function Activity Recommendations Activity Limitations: per Instructions/Follow-up section . Instructions / Follow-Up Instructions / Follow-Up ACTIVITY RECOMMENDATIONS: SELF CARE INSTRUCTIONS AFTER THORACIC/LUMBAR FUSIONS 1. You may walk to your tolerance. It is good exercise for your legs and back. Expect some back and intermittent leg aches and pains. 2. You may perform "counter-top" level activities (make a sandwich, ezequiel with a project, etc.). 3. No bending or lifting of more than 10 pounds or back twisting of any nature (roll like a log when turning in bed). 4. You may ride in a car for 20-30 minutes at a time. No driving until after your first visit with your doctor. 5. Frequent changes of position and restricting sitting to 30 minutes at a time will help limit the amount of back spasms and stiffness you may experience. 6. You may discontinue the use of ambulatory aids (cane, crutches, etc.) once your strength and confidence allow. 7. You may lasting room machine operator the shower and let water strike your incision when you arrive home at least once daily. Do not take a tub bath, sit in a hot tub or go into a swimming pool until after your first recheck in the office. SPECIAL CARE INSTRUCTIONS: VERY IMPORTANT TO READ AND REVIEW A. Your surgical incision has been closed with a cosmetic suture under the skin that will dissolve in about 6 weeks. In 14 days, you can use a pair of clean scissors and cut the suture that is left outside of the skin at the ends of your incision. 1. The small skin tapes can be removed 7 days after surgery if they have not fallen off by that point. 2. You may keep the wound open to air as much as possible to promote healing after post-op day number 5 unless told otherwise by your doctor. 3. If you think the wound looks like it is becoming infected (redness or worsening drainage) and/or you are experiencing fever, chill or worsening back pain and muscle spasms, contact the office so that we may evaluate you as soon as possible. B. Complications are uncommon, but please contact us if you have any signs or symptoms of: 1. wound infection (fever higher than 102.5 degrees F, redness, separation of wound, drainage, or increasing pain from the incision) 2. blood clots in legs (pain, swelling, redness and warmth in legs) 3. urinary tract infection (fever higher than 102.5 degrees F, burning upon urination or increased frequency of urination) 4. nerve problems (inability to walk on your toes or heels, numbness, loss of bowel or bladder control) 5. any other symptoms that concern you C. Please call the office at if you have any concerns or questions about your operation or recovery. D. No smoking! Smoking drastically decreases the chance of a solid fusion. E. Do not take any anti-inflammatory medications (Indocin, Advil, Motrin, Aspirin, Naprosyn, etc.) as these may inhibit the chance of a solid fusion. Tylenol is okay to take for pain. MANAGING PAIN AFTER SPINAL SURGERY 1. Narcotic medication is intended for short-term use and will be provided for surgical pain. Surgical pain usually lasts for a period of 4-6 weeks. Narcotic medication includes Percocet, Vicodin, Darvocet, Tylenol #3 or Lortab. 2. Longer-term pain is more appropriately treated with non-narcotic medication such as Tylenol ES. 3. Muscle spasm is not appropriately treated with narcotics. Muscle relaxers such as Soma, Flexeril or Skelaxin can be used along with Tylenol ES. 4. Remember that we all live with some "aches and pains". This is not unusual or uncommon after an injury or as we get older. a. Back pain is expected and may include muscle spasms for 4 to 6 weeks after surgery. The pain should gradually improve. If the pain worsens for no apparent reason, please contact the office. b. Intermittent leg pain may also be experienced and should not be concerned about unless it worsens for no apparent reason. If so, please contact the office. 5. We will provide appropriate medication within the normal guidelines of their prescribed use. We will also be very cautious and aware of potential abuse and extended duration of patients' medication needs. a. Pain medications are for your comfort and to assist with sleep and rest so that the tissue can heal. They are not provided in order to return to normal activity and should not be used through the day. To do so or worsening pain at night can result from ongoing tissue damage and development of tolerance to the prescribed medicine. 6. Please allow 2-3 days to process refills. Prescriptions will not be mailed but must be picked up at the office. FOLLOW UP VISIT: Keep your scheduled follow-up appointment. Any questions, please call the office at . Current Hospital Diet Patient's current hospital diet: Regular Diet Discharge Diet Recommended Diet: Regular Diet Procedures Procedures Performed: #1 removal posterior instrumentation L3 4. #2 exploration of fusion L3 4. #3 lumbar decompression medial facetectomies L1 to L2 3. #4 posterior spinal fusion T11 to L4. #5 placement posterior segmental transportation T12 to L4. #6 interbody fusion L1 to L2 3. #7 placement peek cage 10 x 26 mm L1 2 and 12 x 26 mm L2 3. #6 placement locally harvested morcellized autograft and posterior gutters. #7 placement infuse collagen sponge combined Master graft in the posterior lateral gutters and ostial amp in the interbody spaces. Pending Studies Studies pending at discharge: no Medical Emergencies . Who to Call and When: Medical Emergencies: If at any time you feel your situation is an emergency, please call 911 immediately. . Non-Emergent Contact Non-Emergency issues call your: Primary Care Provider . "Provider Documentation" section prepared by Main Grover. . VTE Core Measure Inpt VTE Proph given/why not?: Johan Lee, SCD's
[2017-03-24] MEDS: LORAZEPAM 0.5 MG TAB PO PRN (08:17)
[2017-03-24] MEDS: PIPERACILL/TAZOBAC IV 3.375 GM in DEXTROSE 5% 100ML IV SCH ×3 (08:19→23:22)
[2017-03-24] MEDS ORDERED: POLYETHYLENE (MIRALAX) 17 GM PACK PO SCH (09:00)
[2017-03-24] MEDS: ROPINIROLE HCL 0.25 MG TAB PO SCH ×2 (09:06→21:39)
[2017-03-24] MEDS: LACTOBACILLUS ACIDOPHILUS (FLORANEX) TAB PO SCH ×3 (09:06→18:00)
[2017-03-24] MEDS: SENNA 8.8 MG/5 ML UDP PO SCH ×2 (09:07→21:37)
--- NOTE | 2017-03-24 13:55 | Progress Note ---
Progress Note Date of Service Mar 24, 2017. Progress Note Patient's back pain is controlled. He denies any leg pain numbness or weakness. He states his shaky is markedly improved. Still has some chills. He 's been tolerated physical therapy well. Bowels working properly. On exam is good strength testing appears comfortable. Assessment status post lumbar decompression fusion replant this time continue with physical therapy assess his progress. If he continues to improve we will consider discharge to [facility] or home with home health the next 2-3 days.
--- NOTE | 2017-03-24 16:27 | Pharmacy Progress Note ---
Pharmacy Abx Initial Consult Date of Service Mar 24, 2017. Pharmacy Dosing Scope Date of Consult: 03/23/17 Consultation requested by: Dr. Joe Molina Pharmacy is consulted to initiate Vancomycin/Zosyn IV dosing therapy, order appropriate labs and adjust drug dose/frequency. Subjective The patient is a 76 year old male admitted on Mar 22, 2017 at 07:30. Objective Height (Feet): 5 Height (Inches): 11 Weight (Kilograms): 108.900 Vital Signs (Past 12Hrs) Vital Signs Past 12 Hours Date Time Temp Pulse Resp B/P (MAP) Pulse Ox O2 Delivery O2 Flow Rate FiO2 03/24/17 16:12 102 163/64 (97) 03/24/17 15:24 36.8 97 18 186/74 (111) 95 Room Air 03/24/17 11:40 37.6 98 24 138/68 (91) 93 Room Air 03/24/17 08:50 94 Room Air 03/24/17 07:46 37.3 92 20 142/60 (87) 94 Room Air 03/24/17 07:00 Room Air Lab Results (24Hrs) Item Value Date Time Creatinine 1.05 mg/dl 03/23/17 0558 Est Creatinine Clear Calc Drug Dose 77.5 ml/min 03/23/17 0558 Estimated GFR () 80.7 03/23/17 0558 Estimated GFR (Non- 69.6 03/23/17 0558 Micro Results Date/Time Source Procedure Growth Status 03/23/17 18:01 Blood Blood Culture Pending Received 03/23/17 17:56 Blood Blood Culture Pending Received Assessment & Plan Assessment 76 year old male s/p lumbar decompression fusion replant. The patient had a fever of 38.8, Ordered blood culture, UA with urine culture. Ordered chest x-ray rule out atelectasis/aspiration pneumonia Initiate broad-spectrum antibiotics vancomycin/Zosyn Plan Vancomycin for Empiric Treatment - fever of unknown origin Vancomycin IV * Loading dose: 2,750 mg (25 mg/kg) given 03/23/17 @18:30 * Maintenance dose: 1,500 mg IV (14 mg/kg) every 12 hours * Goal trough level for Empiric : 15 to 20 mcg/mL * If Vancomycin continues beyond 48 hours, a trough level will be ordered and pharmacy will continue to follow Piperacillin/tazobactam * 3.375 g bolus administered over 30 minutes on 03/23/17, then 3.375 g IV extended infusion every 8 hours Pharmacy will continue to follow and will adjust dose/frequency as necessary. Thank you.
[2017-03-24] MEDS: TRAZODONE HCL 50 MG TAB PO SCH (21:39)
[2017-03-24] MEDS: ASPIRIN 81 MG ECTAB PO SCH (21:39)
[2017-03-24] MEDS: DOCUSATE SODIUM/SENNA 50/8.6MG TAB PO SCH (21:39)
[2017-03-25] MEDS: OXYCODONE HCL IR 5 MG TAB (IMMEDIATE RELEASE) PO PRN ×6 (02:00→22:35)
[2017-03-25] MEDS: TRAMADOL HCL 50 MG TAB PO PRN ×2 (05:13→17:01)
[2017-03-25] MEDS: VANCOMYCIN INJ 1,500 MG in SODIUM CHLORIDE 0.9% 500ML 500 ML IV SCH (05:13)
[2017-03-25] MEDS: POLYETHYLENE (MIRALAX) 17 GM PACK PO SCH ×3 (05:14→17:57)
[2017-03-25] MEDS ORDERED: NURSING VERBAL MED ORDER ONE ×2 (05:15→20:45)
[2017-03-25 06:29] LABS: CREATININE 0.82 mg/dl (0.60-1.40)
[2017-03-25 07:53] VITALS: BP 139/63; PULSE 83; TEMP 37; O2SAT 96
[2017-03-25] MEDS: ACETAMINOPHEN 500 MG TAB PO PRN (07:58)
[2017-03-25] MEDS: PIPERACILL/TAZOBAC IV 3.375 GM in DEXTROSE 5% 100ML IV SCH (07:58)
[2017-03-25] MEDS: LACTOBACILLUS ACIDOPHILUS (FLORANEX) TAB PO SCH ×3 (09:12→17:58)
[2017-03-25] MEDS: ROPINIROLE HCL 0.25 MG TAB PO SCH ×2 (09:13→20:35)
[2017-03-25] MEDS: SENNA 8.8 MG/5 ML UDP PO SCH ×2 (09:14→20:36)
[2017-03-25 09:18] VITALS: BP 142/67; PULSE 89; O2SAT 95
--- NOTE | 2017-03-25 09:43 | Family Medicine Progress Note ---
Progress Note Date of Service Mar 25, 2017. Subjective Pt evaluation today including: conversation w/ patient, physical exam, chart review, lab review, review of studies, review of inpatient medication list Feels his back pain has improved slightly from the operation and feels most of the pain is due to operation itself at this point. All Other Systems: Reviewed and Negative Medications Current Inpatient Medications Medications (Trade) Dose Ordered Sig/Nils Route Start Time Stop Time Status Last Admin Dose Admin Promethazine HCl 12.5 mg/Sodium Chloride 50.5 ml @ 202 mls/hr Q6H PRN IV 03/22/17 10:30 04/21/17 10:29 Ondansetron HCl (Zofran Inj) 4 mg Q6H PRN IV 03/22/17 10:30 04/21/17 10:29 Metoclopramide HCl (Reglan Inj) 10 mg Q6H PRN IV 03/22/17 10:30 04/21/17 10:29 Lorazepam (Ativan Tab) 0.5 mg Q8H PRN PO 03/22/17 10:30 04/21/17 10:29 03/24/17 08:17 0.5 MG Lorazepam 0.5 mg/ Syringe 0.25 ml @ 1 mls/min Q8H PRN IV 03/22/17 10:30 04/21/17 10:29 Pneumococcal Polysaccharide Vaccine 1 ea PRN PRN N/A 03/22/17 10:30 04/21/17 10:29 Influenza Virus Vacc Triv Types A&B 1 ea PRN PRN N/A 03/22/17 10:30 04/21/17 10:29 Polyethylene (Miralax Powder Packet) 17 gm Q6 PO 03/24/17 06:00 04/23/17 05:59 03/24/17 05:39 17 GM Bisacodyl (Dulcolax Supp) 10 mg DAILY PRN NJ 03/22/17 10:30 04/21/17 10:29 Magnesium Hydroxide (Milk Of Magnesia Susp) 30 ml DAILY PRN PO 03/22/17 10:30 04/21/17 10:29 Hydromorphone HCl (Dilaudid Inj) 0.5-1mg prn moder... Q3H PRN IV 03/23/17 06:01 04/06/17 06:00 03/24/17 18:01 1 MG Oxycodone HCl (Roxicodone Immediate Rel Tab) 5-10mg prn moderate to sev... Q4H PRN PO 03/23/17 06:00 04/06/17 05:59 03/25/17 06:14 10 MG Acetaminophen (Tylenol Tab) 1,000 mg Q8H PRN PO 03/22/17 10:30 04/21/17 10:29 03/25/17 07:58 1,000 MG Acetaminophen 100 ml @ 400 mls/hr Q8H PRN IV 03/22/17 10:30 04/21/17 10:29 Naloxone HCl (Narcan Inj) 0.1 mg Q5M PRN IV 03/22/17 10:30 04/21/17 10:29 Senna/Docusate Sodium (Senokot S Tab) 2 tab HS PO 03/22/17 21:00 04/21/17 20:59 03/24/17 21:39 2 TAB Sodium Biphosphate/ Sodium Phosphate (Fleet Enema) 132 ml ONE PRN NJ 03/22/17 10:30 04/21/17 10:29 Hydroxyzine HCl (Vistaril Tab) 25 mg Q8H PRN PO 03/22/17 10:30 04/21/17 10:29 Al Hydroxide/Mg Hydroxide (Maalox Susp) 30 ml Q6H PRN PO 03/22/17 10:30 04/21/17 10:29 Famotidine (Pepcid Tab) 20 mg Q12 PRN PO 03/22/17 10:30 04/21/17 10:29 Diphenhydramine HCl (Benadryl Cap) 25 mg Q6H PRN PO 03/22/17 10:30 04/21/17 10:29 Aspirin (Ecotrin Tab) 81 mg HS PO 03/22/17 21:00 04/21/17 20:59 03/24/17 21:39 81 MG Fluticasone Propionate (Flonase Nasal [place]) 1 sprays DAILY PRN ZHANNA 03/22/17 10:30 04/21/17 10:29 Ropinirole HCl (Requip Tab) 0.25 mg BID PO 03/22/17 21:00 04/21/17 20:59 03/25/17 09:13 0.25 MG Terazosin HCl (Hytrin Cap) 10 mg HS PO 03/22/17 21:00 04/21/17 20:59 03/24/17 21:38 10 MG Tramadol HCl (Ultram Tab) 50 mg Q6H PRN PO 03/22/17 10:30 04/21/17 10:29 03/25/17 05:13 50 MG Trazodone HCl (Desyrel Tab) 50 mg HS PO 03/22/17 21:00 04/21/17 20:59 03/24/17 21:39 50 MG Valacyclovir HCl (Valtrex Tab) 500 mg QAM PO 03/23/17 09:00 04/06/17 08:59 03/25/17 09:13 500 MG Menthol (Nice Jakob) 1 jakob PRN PRN PO 03/22/17 18:00 04/21/17 17:59 Cyclobenzaprine HCl (Flexeril Tab) 10 mg Q8 PRN PO 03/23/17 08:30 04/22/17 08:29 Senna (Senokot Syrup) 8.8 mg BID PO 03/23/17 11:15 04/22/17 11:14 03/25/17 09:14 8.8 MG Lactobacillus Acidophilus (Floranex Tab) 4 tab TIDM PO 03/23/17 17:45 04/22/17 17:44 03/25/17 09:12 4 TAB Vancomycin HCl (Consult) 1 ea UD PRN N/A 03/23/17 18:00 04/22/17 17:59 Piperacillin Sod/ Tazobactam Sod (Consult) 1 ea UD PRN N/A 03/23/17 18:00 04/22/17 17:59 Piperacillin Sod/ Tazobactam Sod 3.375 gm/Dextrose 115 ml @ 28.75 mls/ hr Q8H IV 03/24/17 00:00 03/25/17 17:59 03/25/17 07:58 28.75 MLS/HR Vancomycin HCl 1500 mg/Sodium Chloride 530 ml @ 200 mls/hr Q12H IV 03/24/17 06:00 03/25/17 17:59 03/25/17 05:13 200 MLS/HR Objective Vital Signs Date Time Temp Pulse Resp B/P (MAP) Pulse Ox O2 Delivery O2 Flow Rate FiO2 03/25/17 07:53 37.0 83 18 139/63 (88) 96 Room Air 03/24/17 23:15 Room Air 03/24/17 23:12 36.8 89 18 147/66 (93) 92 Room Air 03/24/17 18:17 102 165/71 (102) 92 Room Air 03/24/17 16:30 Room Air 03/24/17 16:12 102 163/64 (97) 03/24/17 15:24 36.8 97 18 186/74 (111) 95 Room Air 03/24/17 11:40 37.6 98 24 138/68 (91) 93 Room Air Physical Exam General Appearance: no apparent distress Eyes: normal inspection (pupils equal) Neck: supple, no JVD Respiratory/Chest: chest non-tender, lungs clear, normal breath sounds, no respiratory distress, no accessory muscle use Cardiovascular: regular rate, rhythm, no murmur Abdomen: normal bowel sounds, non tender, soft Extremities: no calf tenderness Neurologic/Psychiatric: alert, oriented x 3 Skin: + pertinent finding (large dressing on back with drain not removed. Dressing is clean and dry. No surrounding cellulitis. Surgical site was not inspected.) Laboratory Results 03/25/17 05:36 Test 03/25/17 05:36 Est Creatinine Clear Calc Drug Dose 99.2 ml/min Estimated GFR () 101.0 Estimated GFR (Non- 87.1 Assessment and Plan 76-year-old man with past medical history of obstructive sleep apnea, sick sinus syndrome versus heart block status post pacemaker presented to the hospital for an elective lumbar spine surgery due to lumbar spine stenosis under Dr Grover 1/06/03. Developed a fever POD #1 with a productive yellow cough - started on broad spectrum vancomycin and zosyn (treated for HCAP) - will repeat a CBC today to assess for WBC - suspect this is likely viral in nature given lack of findings on auscultation and CXR however it would be prudent to cover with antibiotics. I do not see a previous MRSA swab. - will discuss with primary team and attending regarding stepping down antibiotics to orals - Since his back has been progressively getting better I did not remove the dressing today to inspect the wound for signs of infection and will leave this up to the primary orthopedic team if deemed necessary. Obstructive sleep apnea - noncompliant with CPAP, was instructed to adhere to CPAP use Back pain within expected range postsurgical procedure - pain management and physical therapy as managed by primary team Genital herpes - continue outpatient valtrex VTE prophylaxis as per the choice of primary orthopedic team Code - Full Disposition - from a medical point of view he is doing better and can likely be switched to oral antibiotics later today. We will continue to see tomorrow to make sure his improvement continues. I agree with resident assessment and plan and have seen and examined pt myself Will obtain CBC at this time CPAP for LASHAWN Pain controlled at this time PT, DVT per primary team DC antibx at this time Resident Tracking Resident Involvement: Resident Care Provided Care Provided: Adult Hospital Medicine
[2017-03-25 10:22] LABS: BASO % 0.1 %; BASO ABS # 0.01 K/uL (0-0.2); EOS % 0.1 %; EOS ABS # 0.01 K/uL (0-0.5); HEMOGLOBIN 9.2 g/dL (14.0-18.0); IG# 0.03 K/uL (0.00-0.02); LYMPH % 15.7 %; LYMPH ABS # 1.53 K/uL (1.2-3.4); MEAN CELL VOLUME 90.9 fL (80-100); MEAN CORPUSCULAR HEMOGLOBIN 32.2 pg (25-34); MEAN CORPUSCULAR HGB CONC 35.4 g/dl (32-36); MEAN PLATELET VOLUME 8.7 fL (7.4-10.4); MONO % 11.7 %; MONO ABS # 1.14 K/uL (0.11-0.59); NEUT % 72.1 %; NEUT ABS # 7.01 K/uL (1.4-6.5); PLATELET COUNT 163 K/uL (130-400); RED CELL DISTRIBUTION WIDTH CV 13.4 % (11.5-14.5); RED CELL DISTRIBUTION WIDTH SD 44.4 fL (36.4-46.3); WHITE BLOOD COUNT 9.73 K/uL (4.8-10.8)
--- NOTE | 2017-03-25 12:38 | PROGRESS NOTE ---
DATE: 03/25/2017 SUBJECTIVE: Mr. Frank is here postoperative day #3. He is doing better at this point but still has some perceived weakness in his legs. He has been up and walking and doing better in this fashion. He is not nauseous. The pain seems to be better controlled. He denies any other numbness, tingling, or paresthesias. PHYSICAL EXAMINATION: VITAL SIGNS: He is afebrile. Vital signs are stable. TROY drain has placed out 45 on this shift, 60 on the last. His hematocrit is 26.0, hemoglobin is 9.2. ABDOMEN: Soft, nontender. EXTREMITIES: Calves are soft and nontender. Strength and sensation both intact. ASSESSMENT: Patient is stable postoperative day #3. He is doing relatively well at this point, but still want to keep him under close observation. We will defer to medicine whether or not they want a transfusion as his hematocrit is 26 today. If he is not transfused, we will check another H&H in the morning. We will continue PT, OT and mobilization efforts and will see how he is doing over the weekend.
[2017-03-25 15:40] VITALS: BP 161/68; PULSE 84; TEMP 36.6; O2SAT 97
[2017-03-25] MEDS: ASPIRIN 81 MG ECTAB PO SCH (20:35)
[2017-03-25] MEDS: DOCUSATE SODIUM/SENNA 50/8.6MG TAB PO SCH (20:35)
[2017-03-25] MEDS: TRAZODONE HCL 50 MG TAB PO SCH (21:00)
[2017-03-25 22:51] VITALS: BP 139/64; PULSE 88; TEMP 36.9; O2SAT 96
[2017-03-26] VITALS (16 sets, daily range): BP systolic 128–166; BP diastolic 60–80; PULSE 76–85; TEMP 36.3–37.2; O2SAT 93–97
[2017-03-26] MEDS: OXYCODONE HCL IR 5 MG TAB (IMMEDIATE RELEASE) PO PRN ×4 (03:33→20:27)
[2017-03-26 06:35] LABS: CREATININE 0.71 mg/dl (0.60-1.40)
[2017-03-26 08:33] LABS: BASO % 0.1 %; BASO ABS # 0.01 K/uL (0-0.2); EOS % 0.9 %; EOS ABS # 0.07 K/uL (0-0.5); HEMATOCRIT 25.3 % (42-52); HEMOGLOBIN 8.5 g/dL (14.0-18.0); IG# 0.04 K/uL (0.00-0.02); LYMPH % 14.4 %; LYMPH ABS # 1.07 K/uL (1.2-3.4); MEAN CELL VOLUME 90.7 fL (80-100); MEAN CORPUSCULAR HEMOGLOBIN 30.5 pg (25-34); MEAN CORPUSCULAR HGB CONC 33.6 g/dl (32-36); MONO % 9.2 %; MONO ABS # 0.68 K/uL (0.11-0.59); NEUT % 74.9 %; NEUT ABS # 5.56 K/uL (1.4-6.5); PLATELET COUNT 185 K/uL (130-400); RED CELL DISTRIBUTION WIDTH CV 13.1 % (11.5-14.5); RED CELL DISTRIBUTION WIDTH SD 43.8 fL (36.4-46.3); WHITE BLOOD COUNT 7.43 K/uL (4.8-10.8)
[2017-03-26] MEDS: LACTOBACILLUS ACIDOPHILUS (FLORANEX) TAB PO SCH ×3 (09:10→17:50)
[2017-03-26] MEDS: ROPINIROLE HCL 0.25 MG TAB PO SCH ×2 (09:11→20:29)
[2017-03-26] MEDS: SENNA 8.8 MG/5 ML UDP PO SCH ×2 (09:11→20:27)
[2017-03-26 12:04] LABS: HEMATOCRIT 24.3 % (42-52); HEMOGLOBIN 8.4 g/dL (14.0-18.0)
[2017-03-26] MEDS: TRAMADOL HCL 50 MG TAB PO PRN ×2 (12:58→23:43)
--- NOTE | 2017-03-26 14:03 | Progress Note ---
Subjective Date of Service: Mar 26, 2017. Subjective Pt evaluation today including: conversation w/ patient, physical exam, chart review, lab review, review of studies, review of inpatient medication list Reports shortness of breath States weakness as well No chest pain Review of Systems Constitutional: + weakness, + fatigue, No fever, No chills ENT: No hearing loss, No unusual epistaxis, No nasal symptoms, No sore throat Respiratory: + shortness of breath, + dyspnea at rest, No cough, No wheezing Cardiac: No chest pain, No orthopnea, No PND, No edema Abdomen: No pain, No nausea, No vomiting, No diarrhea, No constipation Musculoskeletal: No joint pain, No muscle pain, No swelling, No calf pain Male : No dysuria, No incontinence, No slowing stream Neurologic: No memory loss, No paralysis, No weakness, No numbness/tingling Psychiatric: No depression symptoms, No anhedonism, No anxiety, No insomnia Endo: No fatigue, No excessive thirst Skin: No rash, No itch Objective Vital Signs Date Time Temp Pulse Resp B/P (MAP) Pulse Ox O2 Delivery O2 Flow Rate FiO2 03/26/17 06:36 36.7 84 18 151/60 (90) 95 Room Air 03/25/17 22:51 36.9 88 16 139/64 (89) 96 Room Air 03/25/17 20:26 Room Air 03/25/17 16:45 Room Air 03/25/17 15:40 36.6 84 20 161/68 (99) 97 Room Air Physical Exam General Appearance: WD/WN, no apparent distress Eyes: normal inspection, PERRL, EOMI, sclerae normal Neck: supple, no adenopathy, thyroid normal, no JVD Respiratory/Chest: chest non-tender, lungs clear, no respiratory distress, + decreased breath sounds Cardiovascular: regular rate, rhythm, no edema, no gallop, no JVD Abdomen: normal bowel sounds, non tender, soft, no organomegaly Extremities: normal range of motion, non-tender, normal inspection, no pedal edema Neurologic/Psychiatric: no motor/sensory deficits, alert, normal mood/affect, oriented x 3 Skin: normal color, warm/dry, no rash Lymphatic: no adenopathy Laboratory Results Last 24 Hours Test 03/26/17 05:05 03/26/17 11:42 White Blood Count 7.43 K/uL Red Blood Count 2.79 M/uL Hemoglobin 8.5 g/dL 8.4 g/dL Hematocrit 25.3 % 24.3 % Mean Corpuscular Volume 90.7 fL Mean Corpuscular Hemoglobin 30.5 pg Mean Corpuscular Hemoglobin Concent 33.6 g/dl Platelet Count 185 K/uL Mean Platelet Volume 9.0 fL Neutrophils (%) (Auto) 74.9 % Lymphocytes (%) (Auto) 14.4 % Monocytes (%) (Auto) 9.2 % Eosinophils (%) (Auto) 0.9 % Basophils (%) (Auto) 0.1 % Neutrophils # (Auto) 5.56 K/uL Lymphocytes # (Auto) 1.07 K/uL Monocytes # (Auto) 0.68 K/uL Eosinophils # (Auto) 0.07 K/uL Basophils # (Auto) 0.01 K/uL RDW Standard Deviation 43.8 fL RDW Coefficient of Variation 13.1 % Immature Granulocyte % (Auto) 0.5 % Immature Granulocyte # (Auto) 0.04 K/uL Red Blood Cell Morphology Unremarkable Creatinine 0.71 mg/dl Est Creatinine Clear Calc Drug Dose 114.5 ml/min Estimated GFR () 107.1 Estimated GFR (Non- 92.4 Assessment and Plan 76-year-old man with past medical history of obstructive sleep apnea, sick sinus syndrome versus heart block status post pacemaker presented to the hospital for an elective lumbar spine surgery due to lumbar spine stenosis under Dr Grover 1. Developed a fever POD # 2 with a productive yellow cough - no fevers or leukocytosis - started on broad spectrum vancomycin and zosyn (treated for HCAP) - suspect this is likely viral in nature given lack of findings on auscultation and CXR however it would be prudent to cover with antibiotics. I do not see a previous MRSA swab. - can likely deescalate antibx Acute anemia - baseline Hg 15 - Now down to 8, will transfuse 2 units PRBSc 03/26/17 as pt short of breath Obstructive sleep apnea - noncompliant with CPAP, was instructed to adhere to CPAP use Back pain within expected range postsurgical procedure - pain management and physical therapy as managed by primary team Genital herpes - continue outpatient valtrex VTE prophylaxis as per the choice of primary orthopedic team Code - Full
[2017-03-26] MEDS: ACETAMINOPHEN 500 MG TAB PO PRN (15:25)
[2017-03-26] MEDS: LORAZEPAM 0.5 MG TAB PO PRN (19:55)
[2017-03-26] MEDS: TRAZODONE HCL 50 MG TAB PO SCH (20:27)
[2017-03-26] MEDS: DOCUSATE SODIUM/SENNA 50/8.6MG TAB PO SCH (20:27)
[2017-03-26] MEDS: ASPIRIN 81 MG ECTAB PO SCH (20:28)
[2017-03-27] MEDS: CYCLOBENZAPRINE HCL 10 MG TAB PO PRN ×2 (00:22→09:03)
[2017-03-27] MEDS: OXYCODONE HCL IR 5 MG TAB (IMMEDIATE RELEASE) PO PRN ×3 (02:41→12:38)
[2017-03-27 04:27] VITALS: BP 155/65; PULSE 85; TEMP 36.6; O2SAT 96
[2017-03-27] MEDS: TRAMADOL HCL 50 MG TAB PO PRN (06:06)
[2017-03-27 06:20] VITALS: BP 176/75; PULSE 89; TEMP 36.4; O2SAT 94
[2017-03-27] MEDS: LACTOBACILLUS ACIDOPHILUS (FLORANEX) TAB PO SCH ×2 (07:15→12:35)
[2017-03-27] MEDS: ROPINIROLE HCL 0.25 MG TAB PO SCH (07:15)
[2017-03-27] MEDS: SENNA 8.8 MG/5 ML UDP PO SCH (07:16)
[2017-03-27 07:55] VITALS: BP_SYST 142; BP_SYST 143; BP_DIAS 50; BP_DIAS 63; PULSE 90; TEMP 36.5; O2SAT 96
[2017-03-27 07:58] VITALS: O2SAT 96
[2017-03-27] MEDS ORDERED: FLX10 PO (10:06)
--- NOTE | 2017-03-27 10:23 | Discharge Summary ---
Orthopedic Discharge Summary Admission Date/Reason Mar 22, 2017 at 07:30 Lumbar Spinal Stenosis. Discharge Date/Disposition Mar 27, 2017 Home Diagnosis Principal Diagnosis: Lumbar spinal stenosis Admission Physical Exam As per Admitting History & Physical. Hospital Course Patient underwent lumbar decompression fusion tolerated this well as taken to the orthopedic floor postop we. Postop day 1 he was struggling with some shaking and merline cultures obtained cultures negative. He continued progressed nicely overall. His ambulation improved steadily throughout his hospital stay. His TROY drain decreased appropriate. Subsequently is discharged home. Discharge orders and instructions found on the chart for further review. Discharge Instructions Please refer to the electronic Patient Visit Report (Discharge Instructions) for additional information.
[2017-03-27 10:34] VITALS: BP 143/63; PULSE 90; TEMP 36.5; O2SAT 96
== END 2017-03-27 13:59 | disposition home or self-care (01) | DRG 453 ==
LOC: C.ACU 05:48 → C.3E 07:30 → ENRESERV 11:38
PROVIDERS: ADMIT Orthopaedic Surgery Orthopaedic Surgery of the Spine; ATTEND Orthopaedic Surgery Orthopaedic Surgery of the Spine
PROC: 0SP004Z Removal of Internal Fixation Device from Lumbar Vertebral Joint, Open Approach (ICD-10-PCS; principal; 2017-03-22 07:45)
PROC: 0RG6071 Fusion of Thoracic Vertebral Joint with Autologous Tissue Substitute, Posterior Approach, Posterior Column, Open Approach (ICD-10-PCS; principal; 2017-03-22 07:45)
PROC: 0ST20ZZ Resection of Lumbar Vertebral Disc, Open Approach (ICD-10-PCS; principal; 2017-03-22 07:45)
PROC: 0SG1071 Fusion of 2 or more Lumbar Vertebral Joints with Autologous Tissue Substitute, Posterior Approach, Posterior Column, Open Approach (ICD-10-PCS; principal; 2017-03-22 07:45)
PROC: 0SG10AJ Fusion of 2 or more Lumbar Vertebral Joints with Interbody Fusion Device, Posterior Approach, Anterior Column, Open Approach (ICD-10-PCS; principal; 2017-03-22 07:45)
PROC: 0RGA071 Fusion of Thoracolumbar Vertebral Joint with Autologous Tissue Substitute, Posterior Approach, Posterior Column, Open Approach (ICD-10-PCS; principal; 2017-03-22 07:45)
PROC: 01NB0ZZ Release Lumbar Nerve, Open Approach (ICD-10-PCS; principal; 2017-03-22 07:45)
DX: M48.061 Spinal stenosis, lumbar region without neurogenic claudication (principal); J18.9 Pneumonia, unspecified organism; D62 Acute posthemorrhagic anemia; Y95 Nosocomial condition; G47.33 Obstructive sleep apnea (adult) (pediatric); Z91.19 Patient's noncompliance with other medical treatment and regimen; K59.00 Constipation, unspecified; A60.02 Herpesviral infection of other male genital organs; G25.81 Restless legs syndrome; F32.9 Major depressive disorder, single episode, unspecified; N40.0 Benign prostatic hyperplasia without lower urinary tract symptoms; E66.9 Obesity, unspecified; Z68.33 Body mass index [BMI] 33.0-33.9, adult; Z95.0 Presence of cardiac pacemaker; Z79.82 Long term (current) use of aspirin; Z79.899 Other long term (current) drug therapy; Z87.891 Personal history of nicotine dependence

== ENCOUNTER → 2017-10-24 | Outpatient (CLI) | payer OTHER, BC ==
[~2017-10-24] MED LIST changes: +FLX10 PO; +RXC5 PO; +[UNRECOGNIZED DRUG - REMARK] OPB
== END | disposition home or self-care (01) ==
LOC: C.MAMM 12:39
PROVIDERS: ATTEND Family Medicine
DX: E29.1 Testicular hypofunction (principal); M85.9 Disorder of bone density and structure, unspecified

== ENCOUNTER → 2017-10-26 | Outpatient (CLI) | payer OTHER, BC ==
--- NOTE | 2017-10-27 16:59 | PULMONARY FUNCTION TEST ---
PROCEDURE: Spirometry. Pre-bronchodilator spirometry reveals a mild obstructive ventilatory defect even more pronounced at low lung volumes. There was a good response to bronchodilator suggesting a reversible airways component. Lung volumes demonstrate evidence for significant hyperinflation and air trapping. Diffusion capacity was elevated. This can represent a normal variant or be seen in the presence of bronchospastic airways disease. Clinical correlation is needed.
== END | disposition home or self-care (01) ==
LOC: C.RC 12:52
PROVIDERS: ATTEND Internal Medicine Cardiovascular Disease
DX: R06.09 Other forms of dyspnea (principal); J43.9 Emphysema, unspecified

== ENCOUNTER 2018-10-09 06:06 | Inpatient (IN) ==
--- NOTE | 2018-09-28 10:50 | PAT Medication Instructions ---
Medication Instructions Date of Service September 28, 2018 Home Medications Flovent HFA 1 puff INHALATION Q12H PRN Probiotic 1 tab PO HS albuterol sulfate [ProAir HFA] 1 puff INHALATION BID alpha lipoic acid 1 tab PO QAM aspirin 81 mg PO HS candesartan 16 mg PO QPM coenzyme Q10 [Co Q-10] 400 mg PO HS docusate sodium 100 mg PO Q OTHER DAY ferrous sulfate [iron] 325 mg PO HS glucosamine-chondroitin [Osteo Bi-Flex] 1 tab PO BID lysine 1,000 mg PO QAM melatonin 10 mg PO HS omega 9-hcc-mlv-fish oil [Fish Oil] 800 mg PO BID ropinirole [Requip] 0.5 - 1 mg PO TID terazosin 2 mg PO HS tramadol 50 - 100 mg PO Q6H PRN valacyclovir [Valtrex] 500 mg PO QAM ofloxacin 4 drp OTIC (EAR) BID C,E,zinc,copper [id number] [Ocuvite Adult 50 Plus] 1 cap PO HS acetaminophen [Tylenol Extra Strength] 500 mg PO Q6H PRN fluticasone propionate [Flovent HFA] 2 puff INHALATION BID ibuprofen 600 mg PO Q6H PRN prednisone 10 mg PO QAM triamcinolone acetonide [Nasacort] 2 spray INTRANASAL QAM ASK your surgeon for instructions ibuprofen 600 mg PO Q6H PRN ASK your prescriber and surgeon aspirin 81 mg PO HS STOP taking 2 weeks before surgery (or as soon as possible if surgery is within 2 weeks) alpha lipoic acid 1 tab PO QAM coenzyme Q10 [Co Q-10] 400 mg PO HS glucosamine-chondroitin [Osteo Bi-Flex] 1 tab PO BID omega 2-sye-jou-fish oil [Fish Oil] 800 mg PO BID C,E,zinc,copper [id number] [Ocuvite Adult 50 Plus] 1 cap PO HS lysine 1,000 mg PO QAM STOP taking 24 hours before surgery ropinirole [Requip] 0.5 - 1 mg PO TID DO NOT take the morning of surgery docusate sodium 100 mg PO Q OTHER DAY Take morning of surgery With a small sip of water, OTHERWISE NOTHING TO EAT OR DRINK AFTER MIDNIGHT: Flovent HFA 1 puff INHALATION Q12H PRN (if needed) albuterol sulfate [ProAir HFA] 1 puff INHALATION BID tramadol 50 - 100 mg PO Q6H PRN (okay to take up to 4 hours prior to surgery if needed) valacyclovir [Valtrex] 500 mg PO QAM ofloxacin 4 drp OTIC (EAR) BID acetaminophen [Tylenol Extra Strength] 500 mg PO Q6H PRN (okay to take up to 4 hours prior to surgery if needed) fluticasone propionate [Flovent HFA] 2 puff INHALATION BID prednisone 10 mg PO QAM triamcinolone acetonide [Nasacort] 2 spray INTRANASAL QAM Take evening before surgery Flovent HFA 1 puff INHALATION Q12H PRN (if needed) Probiotic 1 tab PO HS albuterol sulfate [ProAir HFA] 1 puff INHALATION BID candesartan 16 mg PO QPM ferrous sulfate [iron] 325 mg PO HS melatonin 10 mg PO HS terazosin 2 mg PO HS tramadol 50 - 100 mg PO Q6H PRN (if needed) ofloxacin 4 drp OTIC (EAR) BID acetaminophen [Tylenol Extra Strength] 500 mg PO Q6H PRN (if needed) fluticasone propionate [Flovent HFA] 2 puff INHALATION BID Other Notes If you have any questions please call us at [phone] or [phone] or [phone] or [phone]
--- NOTE | 2018-10-01 11:14 | Anesthesiology Consultation ---
Date of Service October 01, 2018 Assessment & Plan (1) Encounter for pre-operative examination: - Cardio: 10/05/18: "doing quite well, I do not see any reason why he may not proceed with the decompression surgery from L5-S1. I believe his risk of cardiac complications is low, in the range of 1 to at most 2%.. he is predominately atrial paced and not pacemaker dependent. If there is any concern with using the Bovie.. near field interaction with the pacemaker, it can be reprogrammed to DOO mode prior to this surgery and reprogrammed after surgery." Reviewed with Dr. Harris- he states reprogramming prior to surgery not needed from an anesthesia perspective/do not need pacer rep requested. - ASA: okay to continue perioperatively per surgeon* - S/P right cochlear implant: 08/31/18: LMA#5 at [facility] Chart Review Chart Review: Acceptable Risk for Surgery and Patient seen in Pre Admission Testing Teaching & Discussion Pre-Anesthesia Teaching/Discussion Notes: Instructed NPO after midnight before surgery,except medications with 15 cc of water. Medication instructions provided according to the PAT guidelines. History Surgery Operation Date: 10/09/18 07:45 Proposed Procedures p L5-S1 Decompression and Fusion with Spinal Cord Monitoring - Main Grover, Height/Weight Height: 5 ft 11 in Weight: 110.6 kg Allergies Allergy/AdvReac Type Severity Reaction Status Date / Time grass pollen-perennial rye, Allergy Unknown WATERY EYES Verified 09/27/18 12:19 standar sertraline AdvReac Unknown DIZZINESS Verified 09/27/18 12:19 zolpidem AdvReac Unknown HALLUCINIATIONS/SUICIDAL Verified 09/27/18 12:19 THOUGHTS Medications Home Medications Medication Instructions Recorded Confirmed Last Taken Flovent HFA 1 puff INHALATION Q12H PRN 12/26/17 09/27/18 08/30/18 23:00 Probiotic 1 tab PO HS 12/26/17 09/27/18 08/24/18 albuterol sulfate [ProAir HFA] 1 puff INHALATION BID 12/26/17 09/27/18 08/30/18 23:00 alpha lipoic acid 1 tab PO QAM 12/26/17 09/27/18 08/24/18 aspirin 81 mg PO HS 12/26/17 09/27/18 08/24/18 candesartan 16 mg PO QPM 12/26/17 09/27/18 08/30/18 15:00 coenzyme Q10 [Co Q-10] 400 mg PO HS 12/26/17 09/27/18 08/24/18 docusate sodium 100 mg PO Q OTHER DAY 12/26/17 09/27/18 08/24/18 ferrous sulfate [iron] 325 mg PO HS 12/26/17 09/27/18 08/30/18 23:00 glucosamine-chondroitin [Osteo 1 tab PO BID 12/26/17 09/27/18 08/24/18 Bi-Flex] lysine 1,000 mg PO QAM 12/26/17 09/27/18 08/24/18 melatonin 10 mg PO HS 12/26/17 09/27/18 08/30/18 23:00 omega 4-ymt-ols-fish oil [Fish Oil] 800 mg PO BID 12/26/17 09/27/18 08/24/18 ropinirole [Requip] 0.5 - 1 mg PO TID 12/26/17 09/27/18 08/30/18 23:00 terazosin 2 mg PO HS 12/26/17 09/27/18 08/30/18 18:00 tramadol 50 - 100 mg PO Q6H PRN 12/26/17 09/27/18 08/24/18 valacyclovir [Valtrex] 500 mg PO QAM 12/26/17 09/27/18 08/30/18 08:00 ofloxacin 4 drp OTIC (EAR) BID 08/16/18 09/27/18 08/24/18 C,E,zinc,copper [id number] 1 cap PO 09/27/18 09/27/18 Unknown [Ocuvite Adult 50 Plus] acetaminophen [Tylenol Extra 500 mg PO Q6H PRN 09/27/18 09/27/18 Unknown Strength] fluticasone propionate [Flovent 2 puff INHALATION BID 09/27/18 09/27/18 Unknown HFA] ibuprofen 600 mg PO Q6H PRN 09/27/18 09/27/18 Unknown prednisone 10 mg PO QAM 09/27/18 09/27/18 Unknown triamcinolone acetonide [Nasacort] 2 spray INTRANASAL QAM 09/27/18 09/27/18 Unknown Past Medical History Medical History Anemia Arthritis Asthma stable BPH (benign prostatic hyperplasia) CAD (coronary artery disease) mild non-obstructive disease per 2016 cath Chronic obstructive pulmonary disease stable Diverticulitis 2+ years ago Hearing deficit Hiatal hernia History of recent steroid use prednisone taper to be completed 09/26 (for back pain/radiculopathy) History of skin cancer s/p excision Hypertension Irregular heart beat hx of paroxysmal atrial tachycardia and PVCs; now s/p PPM implantation Obesity 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 Biotronic; last check 07/2018 Restless leg Right foot drop Sleep apnea CPAP (occasional use) Spinal stenosis Exercise / Class Metabolic Activity III < 4 Walking/Shop/Light housework (cane prn) Past Family History Family History Mother Family history of diabetes mellitus Past Surgical History Surgical History History of bilateral cataract extraction History of bunionectomy LEFT History of cardiac cath 02/2016= no stents History of cochlear implant right: 08/31/18: LMA#5 at [facility] History of colonoscopy History of ear surgery X4--R EARDRUM History of esophagogastroduodenoscopy (EGD) History of eye surgery BILT LASER EYE SX AFTER CATARACTS History of lumbar fusion X3--"RODS & SCREWS T2-L6" History of nasal septoplasty 2013 History of nasal surgery DEVIATED SEPTUM History of surgery UVULECTOMY (2003) History of tonsillectomy History of tooth extraction ALL TEETH History of total right hip replacement History of total right knee replacement (TKR) Hx of transurethral resection of prostate Past Anesthesia History No Hx of Anesthesia Complications and No Family Hx of Anesthesia Complications History of PONV No Hx of PONV and No Hx of Motion Sickness Social History Smoking Status: Former smoker tobacco type: cigarettes Do You Dip or Chew Tobacco: No Smoking End Date: QUIT 1997 Hx Alcohol Use: No Hx Substance Use: No substance use type: does not use Review of Systems Right foot drop. Patient denies chest pain, shortness of breath, reflux, cough, wheezing, palpitations. Physical Exam Vital Signs VITALS BP 145/76 P 64 TEMP 97.5 SP02 95%RA RESP 18 PHYSICAL Full neck and c-spine range of motion. Full TMJ range of motion. TMD 3.5 finger breaths Mallampati Score 1 Dentition: full dentures upper/lower Lungs: clear throughout to auscultation Cardiac: regular rate and rhythm, no murmurs noted Spine: normal Carotid arteries: negative bruit Extremities: no edema Testing Laboratory Results 10/01/18 11:35 Urine Color Dark Yellow 10/01/18 11:35 Urine Appearance Clear (Clear) 10/01/18 11:35 Urine pH 5.5 (4.5-7.5) 10/01/18 11:35 Ur Specific Central 1.036 (1.000-1.030) H 10/01/18 11:35 Urine Protein Negative (Negative) 10/01/18 11:35 Urine Glucose (UA) Negative (Negative) 10/01/18 11:35 Urine Ketones Trace (Negative) H 10/01/18 11:35 Urine Nitrite Negative (Negative) 10/01/18 11:35 Ur Leukocyte Esterase Negative (Negative) 10/01/18 11:35 Blood Type O Positive 10/01/18 11:35 Antibody Screen NEGATIVE 10/01/18 11:35 09/25/18 SODIUM 142 POTASSIUM 4.0 CHLORIDE 103 CO2 32 BUN 25 CREATININE 1.05 GLUCOSE 109 PT 13.0 PTT 36 INR 1.0 Electrocardiogram Date: 09/25/18 A- paced rhythm at 75bpm. Chest X-Ray Date: 07/18/18 Dual-lead left subclavian pacemaker and lumbar spine fusion hardware is incidentally noted. There is no pneumothorax or pleural effusion. Pulmonary vascularity is normal. Cardiomediastinal silhouette is stable. Underlying emphysema is noted. No acute cardiopulmonary findings. Emphysema. Stress Test Date: 01/18/16 Type: exercise Resting EF: 65% Rest echo: The left ventricular cavity size and systolic function are normal with no regional wall motion abnormalities present. EF is normal. Stress echo: Hypertensive response to exercise. No evidence of chronotropic incompetence. Heart rate recovery 1 minute was 32 bpm. Normal LV wall motion response to exercise. Left ventricle become smaller more vigorous with ex ercise. Improved global LV function with exercise. Conclusions: Negative stress EKG for ischemia at 85% maximum predicted heart rate. No evidence of chronotropic incompetence. Negative stress echo for ischemia at 85% MPHR. Average exercise tolerance for age and gender, 108% of predicted, achieving 7.7 METS. Pulmonary Function Test Date: 10/27/17 Pre-bronchodilator spirometry reveals a mild obstructive ventilatory defect even more pronounced at low lung volumes. There was a good response to b ronchodilator suggesting a reversible airways component. Lung volumes demonstrate evidence for significant hyperinflation and air trapping. Diffusion capacity was elevated. This can represent a normal variant or be seen in the presence of bronchospastic airways disease. Other Testing Pacemaker Check 07/19/18 Diagnosis: SSS Model: TangoroniAntengo Mode: DDD-CLS Pacin% RA paced, 1% RV paced Battery Longevity: 8yrs, 4 months One HVR episode, 4 seconds, mx rate 172bpm. EGM's indicate PAT.
[2018-10-01 12:20] LABS: Basophils # (auto) 0.01 K/uL (0-0.2); Basophils % (auto) 0.2 %; Eosinophils # (auto) 0.01 K/uL (0-0.5); Eosinophils % (auto) 0.2 %; Hemoglobin 13.4 g/dL (14.0-18.0); Immature Granulocytes # (auto) 0.01 K/uL (0.00-0.02); Immature Granulocytes % (auto) 0.2 %; Lymphocytes # (auto) 0.66 K/uL (1.2-3.4); Mean Corpuscular Hgb Conc 34.4 g/dL (32-36); Mean Corpuscular Volume 95.6 fL (80-100); Mean Platelet Volume 8.6 fL (7.4-10.4); Monocytes # (auto) 0.25 K/uL (0.11-0.59); Monocytes % (auto) 5.3 %; Neutrophils # (auto) 3.78 K/uL (1.4-6.5); Neutrophils % (auto) 80.1 %; Platelet Count 160 K/uL (130-400); RDW Standard Deviation 48.5 fL (36.4-46.3); Red Blood Count 4.08 M/uL (4.7-6.1); White Blood Count 4.72 K/uL (4.8-10.8)
[2018-10-01 12:38] LABS: Appearance Urine Clear (Clear); Bilirubin Urine Negative (Negative); Blood Urine Negative (Negative); Color Urine Dark Yellow; Glucose Urine UA Negative (Negative); Ketones Urine Trace (Negative); Leukocyte Esterase Urine Negative (Negative); Nitrite Urine Negative (Negative); Protein Urine Negative (Negative); Specific Gravity Urine 1.036 (1.000-1.030); Urobilinogen Urine Negative (Negative); pH Urine 5.5 (4.5-7.5)
[~2018-10-09 06:06] MED LIST changes: -ALPH300T PO; -AMOX500C3 PO; -ASPCH81X PO; +CEFAZOLIN 2000MG 2,000 MG/15 ML SYR IV SCH; -COEN1CAP32 PO; -FLUT0.15 NAE; -FLX10 PO; +LR 15ML/HR IV SCH; -LYSI100014 PO; -MELA3TAB12 PO; -MISCTAB78 PO; -MULT-188 PO; -PSYL43PO PO; -ROPI0.25 PO; -RXC5 PO; -TERA1CAP63 PO; -TRAM-10 PO; -TRAZ50TA35 PO; -VALA500T60 PO; -[UNRECOGNIZED DRUG - REMARK] OPB; -testosterone INJ
[2018-10-09] MEDS ORDERED: MIDAZOLAM HCL 1 MG/ML 2ML VIAL ONE (06:36)
[2018-10-09] MEDS ORDERED: HYDROmorphone INJ 2 MG/ML SYR/VIAL ONE ×2 (06:36→08:24)
[2018-10-09] MEDS ORDERED: fentaNYL citrate 100 MCG/2 ML VIAL ONE ×7 (06:36→10:36)
[2018-10-09] MEDS ORDERED: BUPIVACAINE/EPINEPHRINE 0.5% MPF 1:200,000 30 ML VIAL ONE (06:53)
[2018-10-09] MEDS ORDERED: BACITRACIN INJ 50,000 UNIT VIAL ONE (06:53)
[2018-10-09] MEDS ORDERED: ATROPINE SULFATE 0.1 MG/ML 10ML SYR IV PRN (07:21)
[2018-10-09] MEDS ORDERED: ONDANSETRON INJ 2 MG/ML 2 ML VIAL IV PRN ×2 (07:21→12:09)
[2018-10-09] MEDS ORDERED: ePHEDrine sulfate 50 MG/ML AMP IV PRN (07:21)
[2018-10-09] MEDS ORDERED: fentaNYL citrate 100 MCG/2 ML VIAL IV PRN (07:21)
--- NOTE | 2018-10-09 07:33 | History & Physical Bridge Note ---
Date of Service October 09, 2018 History & Physical Bridge Note I have examined the patient, reviewed the History & Physical and in the interval since the performance of the History & Physical I have noted the following changes of clinical significance: no changes noted
--- NOTE | 2018-10-09 07:35 | History & Physical Report ---
Date of Service October 09, 2018 Assessment & Plan (1) Lumbar stenosis with neurogenic claudication: Decompression and fusion L5-S1 Present on Admission?: Yes History of Present Illness Chief Complaint: Back and leg pain Primary Care Provider: NO PCP This is a 77-year-old male well-known to me who presents with chronic persistent back and leg pain. After failing extensive course of nonoperative care is here for surgical intervention. Allergies Allergy/AdvReac Type Severity Reaction Status Date / Time grass pollen-perennial rye, Allergy Unknown WATERY EYES Verified 10/09/18 06:27 standar sertraline AdvReac Unknown DIZZINESS Verified 10/09/18 06:27 zolpidem AdvReac Unknown HALLUCINIATIONS/SUICIDAL Verified 10/09/18 06:27 THOUGHTS Home Medications Home Medications Medication Instructions Recorded Confirmed Type Flovent HFA 1 puff INHALATION Q12H PRN 12/26/17 10/09/18 History Probiotic 1 tab PO HS 12/26/17 10/09/18 History albuterol sulfate [ProAir HFA] 1 puff INHALATION BID 12/26/17 10/09/18 History alpha lipoic acid 1 tab PO QAM 12/26/17 10/09/18 History aspirin 81 mg PO HS 12/26/17 10/09/18 History candesartan 16 mg PO QPM 12/26/17 10/09/18 History coenzyme Q10 [Co Q-10] 400 mg PO HS 12/26/17 10/09/18 History docusate sodium 100 mg PO Q OTHER DAY 12/26/17 10/09/18 History ferrous sulfate [iron] 325 mg PO HS 12/26/17 10/09/18 History glucosamine-chondroitin [Osteo 1 tab PO BID 12/26/17 10/09/18 History Bi-Flex] lysine 1,000 mg PO QAM 12/26/17 10/09/18 History melatonin 10 mg PO HS 12/26/17 10/09/18 History omega 9-kkl-khc-fish oil [Fish Oil] 800 mg PO BID 12/26/17 10/09/18 History ropinirole [Requip] 0.5 - 1 mg PO TID 12/26/17 10/09/18 History terazosin 2 mg PO HS 12/26/17 10/09/18 History tramadol 50 - 100 mg PO Q6H PRN 12/26/17 10/09/18 History valacyclovir [Valtrex] 500 mg PO QAM 12/26/17 10/09/18 History ofloxacin 4 drp OTIC (EAR) BID 08/16/18 10/09/18 History C,E,zinc,copper [id number] 1 cap PO HS 09/27/18 10/09/18 History [Ocuvite Adult 50 Plus] acetaminophen [Tylenol Extra 500 mg PO Q6H PRN 09/27/18 10/09/18 History Strength] fluticasone propionate [Flovent 2 puff INHALATION BID 09/27/18 10/09/18 History HFA] ibuprofen 600 mg PO Q6H PRN 09/27/18 10/09/18 History triamcinolone acetonide [Nasacort] 2 spray INTRANASAL QAM 09/27/18 10/09/18 History Past Med/Surg History Medical History Anemia Arthritis Asthma stable BPH (benign prostatic hyperplasia) CAD (coronary artery disease) mild non-obstructive disease per 2016 cath Chronic obstructive pulmonary disease stable Diverticulitis 2+ years ago Hearing deficit Hiatal hernia History of recent steroid use prednisone taper to be completed 09/26 (for back pain/radiculopathy) History of skin cancer s/p excision Hypertension Irregular heart beat hx of paroxysmal atrial tachycardia and PVCs; now s/p PPM implantation Obesity 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 Biotronic; last check 07/2018 Restless leg Right foot drop Sleep apnea CPAP (occasional use) Spinal stenosis Surgical History History of bilateral cataract extraction History of bunionectomy LEFT History of cardiac cath 02/2016= no stents History of cochlear implant right: 08/31/18: LMA#5 at [facility] History of colonoscopy History of ear surgery X4--R EARDRUM History of esophagogastroduodenoscopy (EGD) History of eye surgery BILT LASER EYE SX AFTER CATARACTS History of lumbar fusion X3--"RODS & SCREWS T2-L6" History of nasal septoplasty 2013 History of nasal surgery DEVIATED SEPTUM History of surgery UVULECTOMY (2003) History of tonsillectomy History of tooth extraction ALL TEETH History of total right hip replacement History of total right knee replacement (TKR) Hx of transurethral resection of prostate Family History Mother Family history of diabetes mellitus Social History Preferred Language: Japanese Communication Ability: Effective Inspection Clerk Required: No Beliefs That Will Affect Care: None Current Living Situation: Spouse Other Information That Helps Us Care for You: No Feels Safe at Home: Yes Safety Concerns: Feels Safe At This Time Smoking Status: Former smoker Tobacco Type: cigarettes Do You Dip or Chew Tobacco: No Smoking End Date: QUIT 1997 Second Hand Exposure: Yes (MOTHER/FATHER SMOKED) Hx Alcohol Use: No Hx Substance Use: No Physical Exam Physical Exam: Patient is alert and oriented neurologically intact. Results & Data Vital Signs (Past 12 Hours) Vital Signs Temp Pulse Resp BP Pulse Ox 10/09/18 06:34 36.4 C L 76 18 129/73 95
[2018-10-09] MEDS ORDERED: ALBUTEROL HFA INHALER 8.5 GM ONE (08:05)
[2018-10-09] MEDS ORDERED: FLOSEAL HEMOSTATIC MATRIX 10ML TOP ONE (08:18)
[2018-10-09] MEDS ORDERED: LIDOCAINE HCL 2% 2 ML VIAL/AMP(20MG/ML) INFIL ONE (08:58)
[2018-10-09] MEDS ORDERED: ONDANSETRON INJ 2 MG/ML 2 ML VIAL ONE (08:58)
[2018-10-09] MEDS ORDERED: DEXAMETHASONE SOD INJ 4 MG/ML VIAL ONE (08:58)
[2018-10-09] MEDS ORDERED: GLYCOPYRROLATE 0.2 MG/ML VIAL ONE (08:58)
[2018-10-09] MEDS ORDERED: PROPOFOL IV EMULSION 10 MG/ML 20 ML VIAL IV ONE ×2 (08:58→09:18)
[2018-10-09] MEDS ORDERED: NEOSTIGMINE METHYLSULFATE 1 MG/ML 10ML VIAL ONE (08:58)
[2018-10-09] MEDS ORDERED: ROCURONIUM BROMIDE 10 MG/ML 5 ML VIAL ONE (08:58)
[2018-10-09] MEDS ORDERED: PHENYLEPHRINE 100MCG/ML 5ML SYR ONE (08:58)
[2018-10-09] MEDS ORDERED: ePHEDrine sulfate 50 MG/ML SYR ONE (08:58)
[2018-10-09] MEDS ORDERED: ePHEDrine sulfate 50 MG/ML AMP ONE (09:45)
[2018-10-09] MEDS ORDERED: LARYING-O-JET KIT (LTA) ONE (09:56)
--- NOTE | 2018-10-09 10:36 | Operative Report ---
Post Operative Report Pre & Post Diagnosis Operation Date: 10/09/18 07:45 Pre-Op Diagnosis: Spinal Stenosis, Lumbar Region with Neurogenic Claudication Post-Op Diagnosis: Spinal Stenosis, Lumbar Region with Neurogenic Claudication Procedure Operation Date: 10/09/18 07:45 Actual Procedures #1 lumbar decompression with bilateral medial facetectomies foraminotomies L5- S1. #2 posterior spinal fusion L5-S1 per #3 placement posterior instrumentation using globus russo's hooks L4-S1. #4 interbody fusion L5-S1 #5 placement of titanium 14 x 26 mm cage at L5-S1 per #6 placement of local autograft in the posterior lateral gutters per #7 placement infuse collagen sponge bone mass graft in the posterior lateral gutters and ostial amp and interbody space. Surgeon Main Grover, DO Machine Shop Lead Man Cassandra Howard Estimated Blood Loss 300 Findings See Below Patient is 5 foot 11 inches tall weighing 107 kg with a BMI of 33. The patient's body habitus contributed to significant technical difficulty throughout the procedure adding 25% increase in operative time. Specimens None Indications This is a 77-year-old male well-known to me that presents with above-mentioned diagnosis after failing extensive course of nonoperative care is here for surgical intervention. Description of Procedure Patient was met with identified and informed consent obtained. Patient was then taken to the operative suite underwent ablation placed in a prone position the Aly table on top of the Jemal frame. All bony prominences well-padded eyes inspected to ensure no external pressure placed upon the peer at this point the lumbar spine was prepped and draped in a sterile fashion. Sharp dissection with the assistance of Bovie cautery was performed down to and exposing the distal instrumentation from L3-L4 down to and exposing the lamina and transverse process of L5 and sacral ala bilaterally. Then proceeded to perform a complete laminectomy L5 from a caudal cephalad fashion including bilateral medial facetectomies and foraminotomies addressing severe stenosis. Pedicle screws were then placed in S1 bilaterally with assistance of fluoroscopy. By way of a transforaminal approach on the right complete discectomy was performed endplates curetted to subcortical being bone and a 14 x 26 mm titanium cage filled ostium bone graft tapped in position. The appropriately sized russo's hooks were then cut contoured and locked in position bilaterally extending from L4-S1 bilaterally. Transverse process of L5 and sacral ala were then burred to subcortical being bone. Infuse collagen sponge mass graft was then placed in the posterior gutters. 15 round TROY drain inserted. Incision was then closed with 1 Vicryl fascia 2-0 Vicryl subtenons in 4 Monocryl for final skin closure. Steri-Strip sterile dressings placed. Patient will continue to PACU stable condition. Please note Cassandra Howard present at the entire procedure involved in patient positioning complex portions of the surgery and final skin closure. Lastly spinal cord monitoring was utilized that procedure no changes noted. I attest to the content of the Intraoperative Record and any orders documented therein. Any exceptions are noted below.
--- NOTE | 2018-10-09 11:05 | Fluoroscopy Report ---
FL lumbar spine 2-3V HISTORY: 77 years-old Male L5-S1 DECOMPRESSION chronic low back pain COMPARISON: MRI lumbar spine 09/13/2018 TECHNIQUE: 2 spot fluoroscopic images of the lumbar spine FINDINGS: Discectomy changes at L4-L5 and L4-S1 with laminectomy and posterior interbody penny and screw fusion. Fractured screws are noted at the L5 level. Alignment appears satisfactory. Facet arthrosis and spond ylitic spurring is noted. IMPRESSION: Fluoroscopic assistance as above. Please see operative report for further details. The above report was generated using voice recognition software. It may contain grammatical, syntax o r spelling errors. Electronically signed by: Anant Almanza M.D. 10/09/2018 11:04 AM
--- NOTE | 2018-10-09 11:56 | Anesthesiology Progress Note ---
Date of Service October 09, 2018 Anesthesia Post Procedure Vital Signs Vital Signs: Temp Pulse Pulse Resp BP Pulse Ox 10/09/18 11:45 97.7 F 74 15 154/69 H 97 10/09/18 11:30 97.3 F L 81 15 160/68 H 97 10/09/18 11:20 97.3 F L 76 18 123/91 98 10/09/18 11:10 73 16 159/75 H 100 10/09/18 11:00 77 16 151/61 H 100 10/09/18 10:53 97.9 F 83 18 171/67 H 100 10/09/18 06:34 97.5 F L 76 18 129/73 95 Pain Intensity Right Buttock: Pain Intensity: 4 Right Lower Leg: Pain Intensity: 4 Back: Pain Intensity: 0 Transfer of Care Handoff Completed per policy Notes Mental Status: alert / awake / arousable and participated in evaluation Patient Amnestic to Procedure: Yes Nausea / Vomiting: adequately controlled Pain: adequately controlled Airway Patency, RR, SpO2: stable & adequate BP & HR: stable & adequate Hydration State: stable & adequate Anesthetic Complications: no major complications apparent and Pt Satisfied with anesthetic care Notes: The patient stated having some numbness in the palmar aspect of both hands as well as numbness on the plantar surface of both feet. I spoke to the patient about the symptoms possibly being attributed to positioning. I recommended that the patient notify nursing if his symptoms did not resolve by this evening. The patient was understanding and was otherwise satisfied with his care.
[2018-10-09] MEDS ORDERED: ONDANSETRON 4 MG TAB PO PRN (12:09)
[2018-10-09] MEDS ORDERED: ACETAMINOPHEN 500 MG TAB PO PRN (12:09)
[2018-10-09] MEDS ORDERED: METOCLOPRAMIDE HCL INJ 5 MG/ML 2 ML VIAL IV PRN (12:09)
[2018-10-09] MEDS ORDERED: BISACODYL 10 MG SUPP PR PRN (12:09)
[2018-10-09] MEDS ORDERED: SOD PHOSPHATE/SOD BIPHOSPHATE ENEMA 132 ML BTL PR PRN (12:09)
[2018-10-09] MEDS ORDERED: PROMETHAZINE HCL 12.5 MG in SODIUM CHLORIDE 0.9% 50 ML IV PRN (12:09)
[2018-10-09] MEDS ORDERED: ACETAMINOPHEN 1,000 MG/100 ML VIAL IV PRN (12:09)
[2018-10-09] MEDS ORDERED: HYDROmorphone INJ 0.5 MG/0.5 ML SYR IV PRN (12:09)
[2018-10-09] MEDS ORDERED: ALUMINUM/MAGNESIUM SUSP 30 ML UDC PO PRN (12:09)
[2018-10-09] MEDS ORDERED: IBUPROFEN 600 MG TAB PO PRN (12:09)
[2018-10-09] MEDS ORDERED: DO NOT ADMINISTER FLU VACCINE PRN (12:09)
[2018-10-09] MEDS ORDERED: DO NOT ADMINISTER PNEUMOCOCCAL VACCINE PRN (12:09)
[2018-10-09] MEDS ORDERED: MAGNESIUM HYDROXIDE SUSP 30 ML UDC PO PRN (12:09)
[2018-10-09] MEDS ORDERED: LORazepam 0.5 MG/1 ML VIAL IV PRN (12:09)
[2018-10-09] MEDS ORDERED: FAMOTIDINE 20 MG TAB PO PRN (12:09)
[2018-10-09] MEDS ORDERED: FLUTICASONE HFA 220 MCG INHALER INH PRN (12:09)
[2018-10-09] MEDS ORDERED: NON-FORMULARY MEDICATION (Docusate Sodium 100 MG) PO SCH (12:09)
[2018-10-09] MEDS: SODIUM CHLORIDE 0.9% 1000ML 1,000 ML IV SCH ×2 (13:42→20:12)
[2018-10-09] MEDS ORDERED: ROPINIROLE HCL 0.25 MG TABLET PO SCH (14:00)
[2018-10-09] MEDS: CANDESARTAN: ORDER AWAITING ACTION SCH ×2 (14:48→23:47)
[2018-10-09] MEDS ORDERED: LORazepam 0.5 MG TAB PO STA (15:41)
[2018-10-09] MEDS: CEFAZOLIN 2000MG 2,000 MG/15 ML SYR IV SCH ×2 (15:57→23:46)
[2018-10-09] MEDS: ROPINIROLE HCL 1 MG TABLET PO SCH ×2 (16:18→21:23)
--- NOTE | 2018-10-09 17:23 | Hospitalist Consultation ---
Date of Consultation October 09, 2018 Assessment & Plan (1) Lumbar stenosis with neurogenic claudication: s/p L5-S1 Decompression and Fusion with Spinal Cord - bowel regimen, dvt prophylaxis, pain control per primary - monitor for acute blood loss - cbc am (2) COPD (chronic obstructive pulmonary disease): Continue home inhalers, no exacerbation at this time (3) Hypertension: Continue candesartan, ASA when ok with primary, PRP tomorrow (4) BPH (benign prostatic hyperplasia): continue terazosin Supervising Physician Co-Signing Physician Notes HAULING [employer]OR Physician Supervision Note: I discussed with Rachel Maya NP and agree with findings and plan as documented in the note. Any exceptions or clarifications are listed here: None Patient is only complains of mild hoarseness and feeling of tenseness in his body which is related to the anesthesia. He is agreeable to taking one-time dos e of lorazepam 0.5 p.o. Otherwise his vitals are stable his examination is unremarkable heart regular lungs are clear we will continue to follow medical management capacity Documented By: Jerad Doty History of Present Illness Attending Physician: Main Grover, History of Present Illness s/p L5-S1 Decompression and Fusion with Spinal Cord today. Denies any discomfort Pmhx: multiple ortho sugeries including back, knee, hip, htn, bph, copd, asthma Social: quit smoking in 1997, does not drink alcohol, lives with Family hx: mother with Hodgkins lymphoma and diabetes, both parents had CHF Allergies Allergy/AdvReac Type Severity Reaction Status Date / Time grass pollen-perennial rye, Allergy Unknown WATERY EYES Verified 10/09/18 06:27 standar sertraline AdvReac Unknown DIZZINESS Verified 10/09/18 06:27 zolpidem AdvReac Unknown HALLUCINIATIONS/SUICIDAL Verified 10/09/18 06:27 THOUGHTS Home Medications Home Medications Medication Instructions Recorded Confirmed Type Probiotic 1 tab PO HS 12/26/17 10/09/18 History albuterol sulfate [ProAir HFA] 1 puff INHALATION BID 12/26/17 10/09/18 History alpha lipoic acid 1 tab PO QAM 12/26/17 10/09/18 History aspirin 81 mg PO HS 12/26/17 10/09/18 History candesartan 16 mg PO QPM 12/26/17 10/09/18 History coenzyme Q10 [Co Q-10] 400 mg PO HS 12/26/17 10/09/18 History docusate sodium 100 mg PO Q OTHER DAY 12/26/17 10/09/18 History ferrous sulfate [iron] 325 mg PO HS 12/26/17 10/09/18 History glucosamine-chondroitin [Osteo 1 tab PO BID 12/26/17 10/09/18 History Bi-Flex] lysine 1,000 mg PO QAM 12/26/17 10/09/18 History melatonin 10 mg PO HS 12/26/17 10/09/18 History omega 8-hop-gfk-fish oil [Fish Oil] 800 mg PO BID 12/26/17 10/09/18 History ropinirole [Requip] 0.5 - 1 mg PO TID 12/26/17 10/09/18 History terazosin 2 mg PO HS 12/26/17 10/09/18 History tramadol 50 - 100 mg PO Q6H PRN 12/26/17 10/09/18 History valacyclovir [Valtrex] 500 mg PO QAM 12/26/17 10/09/18 History C,E,zinc,copper [id number] 1 cap PO HS 09/27/18 10/09/18 History [Ocuvite Adult 50 Plus] acetaminophen [Tylenol Extra 500 mg PO Q6H PRN 09/27/18 10/09/18 History Strength] fluticasone propionate [Flovent 2 puff INHALATION BID 09/27/18 10/09/18 History HFA] ibuprofen 600 mg PO Q6H PRN 09/27/18 10/09/18 History triamcinolone acetonide [Nasacort] 2 spray INTRANASAL QAM 09/27/18 10/09/18 History Patient History Medical History Anemia Arthritis Asthma stable BPH (benign prostatic hyperplasia) CAD (coronary artery disease) mild non-obstructive disease per 2016 cath Chronic obstructive pulmonary disease stable Diverticulitis 2+ years ago Hearing deficit Hiatal hernia History of recent steroid use prednisone taper to be completed 09/26 (for back pain/radiculopathy) History of skin cancer s/p excision Hypertension Irregular heart beat hx of paroxysmal atrial tachycardia and PVCs; now s/p PPM implantation Obesity 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 Biotronic; last check 07/2018 Restless leg Right foot drop Sleep apnea CPAP (occasional use) Spinal stenosis Surgical History History of bilateral cataract extraction History of bunionectomy LEFT History of cardiac cath 02/2016= no stents History of cochlear implant right: 08/31/18: LMA#5 at [facility] History of colonoscopy History of ear surgery X4--R EARDRUM History of esophagogastroduodenoscopy (EGD) History of eye surgery BILT LASER EYE SX AFTER CATARACTS History of lumbar fusion X3--"RODS & SCREWS T2-L6" History of nasal septoplasty 2013 History of nasal surgery DEVIATED SEPTUM History of surgery UVULECTOMY (2003) History of tonsillectomy History of tooth extraction ALL TEETH History of total right hip replacement History of total right knee replacement (TKR) Hx of transurethral resection of prostate Family History Mother Family history of diabetes mellitus Social History Preferred Language: Azeri Communication Ability: Effective 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: No Beliefs That Will Affect Care: None Current Living Situation: Spouse Other Information That Helps Us Care for You: No Feels Safe at Home: Yes Safety Concerns: Feels Safe At This Time Smoking Status: Former smoker Tobacco Type: cigarettes Do You Dip or Chew Tobacco: No Smoking End Date: QUIT 1997 Second Hand Exposure: Yes (MOTHER/FATHER SMOKED) Hx Alcohol Use: No Hx Substance Use: No Review of Systems Review of Systems: All systems reviewed & are unremarkable except as noted in HPI & below Physical Exam Physical Exam: General: no distress Eyes: normal inspection, PERLL Respiratory: chest non tender, clear to auscultation, normal breath sounds, no respiratory distress, no accessory muscle use Cardiac: regular rate and rhythm, no rub or gallop, no murmur, no edema, no jvd GI/: active bowel sounds, no abd pain or tenderness, soft, non distended Extremities: normal range of motion, normal strength, non tender Neuro: awake, moves all extremities Psych: alert and oriented x 3, normal mood and affect Skin: normal color, dry Results & Data Vital Signs (Past 12 Hours) Vital Signs Temp Pulse Pulse Pulse Resp BP Pulse Ox 10/09/18 15:21 36.4 C L 83 18 155/74 H 96 10/09/18 14:08 79 18 127/66 97 10/09/18 12:43 36.7 C 79 16 162/76 H 96 10/09/18 11:55 36.6 C 72 16 139/66 96 10/09/18 11:45 36.5 C 74 15 154/69 H 97 10/09/18 11:30 36.3 C L 81 15 160/68 H 97 10/09/18 11:20 36.3 C L 76 18 123/91 98 10/09/18 11:10 73 16 159/75 H 100 10/09/18 11:00 77 16 151/61 H 100 10/09/18 10:53 36.6 C 83 18 171/67 H 100 10/09/18 06:34 36.4 C L 76 18 129/73 95 PG Care Time/CCT Total # of Minutes Spent Total Time Spent with Patient: Total time spent is greater than 50% in coordination of care (as documented) at patient's floor/unit and/or counseling patient:
[2018-10-09] MEDS: KETOROLAC TROMETHAMINE 15 MG/ML VIAL IV SCH ×2 (18:36→23:47)
[2018-10-09] MEDS ORDERED: NON-FORMULARY MEDICATION (Coenzyme Q10 [Co Q-10] 400 MG) PO SCH (21:00)
[2018-10-09] MEDS ORDERED: NON-FORMULARY MEDICATION (C,E,Zinc,Copper 11-Omega3s-Lut [Ocuvite Adult 50 Plus] 1 CAP) PO SCH (21:00)
[2018-10-09] MEDS ORDERED: OFLOXACIN OT SCH (21:00)
[2018-10-09] MEDS: FERROUS SULFATE 325 MG TAB PO SCH (21:20)
[2018-10-09] MEDS: ASPIRIN 81 MG ECTAB PO SCH ×2 (21:20→21:27)
[2018-10-09] MEDS: OMEGA-3 (PURIFIED FISH OIL) 1 GM CAP PO SCH (21:21)
[2018-10-09] MEDS: TERAZOSIN HCL 1 MG CAP PO SCH (21:21)
[2018-10-09] MEDS: ALBUTEROL HFA INHALER 8.5 GM INH SCH (21:21)
[2018-10-09] MEDS: DOCUSATE SODIUM/SENNA 50/8.6MG TAB PO SCH (21:22)
[2018-10-09] MEDS: FLUTICASONE HFA 110MCG INHALER INH SCH (22:37)
[2018-10-09] MEDS: LORazepam 0.5 MG TAB PO PRN (22:40)
[2018-10-10] MEDS: POLYETHYLENE (MIRALAX) 17 GM PACK PO SCH ×4 (05:23→23:29)
[2018-10-10] MEDS: KETOROLAC TROMETHAMINE 15 MG/ML VIAL IV SCH ×2 (05:24→13:08)
[2018-10-10] MEDS: OXYCODONE HCL IR 5 MG TAB (IMMEDIATE RELEASE) PO PRN ×4 (05:57→23:34)
[2018-10-10 06:36] LABS: Eosinophils # (auto) 0.02 K/uL (0-0.5); Eosinophils % (auto) 0.2 %; Hematocrit (blood only) 33.6 % (42-52); Hemoglobin 11.5 g/dL (14.0-18.0); Immature Granulocytes # (auto) 0.02 K/uL (0.00-0.02); Immature Granulocytes % (auto) 0.2 %; Lymphocytes # (auto) 0.99 K/uL (1.2-3.4); Lymphocytes % (auto) 12.3 %; Mean Corpuscular Hgb Conc 34.2 g/dL (32-36); Mean Corpuscular Volume 97.7 fL (80-100); Mean Platelet Volume 8.4 fL (7.4-10.4); Monocytes # (auto) 0.54 K/uL (0.11-0.59); Monocytes % (auto) 6.7 %; Neutrophils # (auto) 6.51 K/uL (1.4-6.5); Neutrophils % (auto) 80.6 %; Platelet Count 169 K/uL (130-400); RDW Coefficient of Variation 13.5 % (11.5-14.5); RDW Standard Deviation 48.3 fL (36.4-46.3); Red Blood Count 3.44 M/uL (4.7-6.1); White Blood Count 8.08 K/uL (4.8-10.8)
[2018-10-10 07:13] LABS: Calcium 8.4 mg/dl (8.5-10.1); Creatinine Clr Calc Pharmacy 74.3 ml/min; Est GFR (African American) 78.3; Est GFR (Non-African American) 67.5; Potassium 3.7 mmol/L (3.5-5.1)
[2018-10-10] MEDS: CANDESARTAN: ORDER AWAITING ACTION SCH ×2 (08:02→16:20)
[2018-10-10] MEDS: ROPINIROLE HCL 0.25 MG TABLET PO SCH (08:04)
[2018-10-10] MEDS: VALACYCLOVIR HCL 500 MG TABLET PO SCH (08:04)
[2018-10-10] MEDS: OMEGA-3 (PURIFIED FISH OIL) 1 GM CAP PO SCH ×2 (08:04→21:23)
[2018-10-10] MEDS: ALBUTEROL HFA INHALER 8.5 GM INH SCH ×2 (08:05→21:24)
[2018-10-10] MEDS: TRIAMCINOLONE ACET NASAL SPRAY 10.8ML BTL SCH (08:06)
[2018-10-10] MEDS: FLUTICASONE HFA 110MCG INHALER INH SCH ×2 (08:44→21:23)
[2018-10-10] MEDS ORDERED: NON-FORMULARY MEDICATION (Lysine 1,000 MG) PO SCH (09:00)
[2018-10-10] MEDS ORDERED: ALPHA LIPOIC ACID PO SCH (09:00)
--- NOTE | 2018-10-10 09:57 | Anesthesiology Progress Note ---
Date of Service October 10, 2018 Anesthesia Post Procedure Vital Signs Vital Signs: Temp Pulse Pulse Pulse Resp BP Pulse Ox 10/10/18 07:53 36.5 C 73 18 145/74 H 97 10/10/18 04:00 36.5 C 73 18 119/56 L 96 10/09/18 23:30 36.5 C 79 16 127/64 93 10/09/18 19:33 36.6 C 78 18 118/55 L 97 10/09/18 15:21 36.4 C L 83 18 155/74 H 96 10/09/18 14:08 79 18 127/66 97 10/09/18 12:43 36.7 C 79 16 162/76 H 96 10/09/18 11:55 36.6 C 72 16 139/66 96 10/09/18 11:45 36.5 C 74 15 154/69 H 97 10/09/18 11:30 36.3 C L 81 15 160/68 H 97 10/09/18 11:20 36.3 C L 76 18 123/91 98 10/09/18 11:10 73 16 159/75 H 100 10/09/18 11:00 77 16 151/61 H 100 10/09/18 10:53 36.6 C 83 18 171/67 H 100 Pain Intensity Right Buttock: Pain Intensity: 4 Right Lower Leg: Pain Intensity: 4 Back: Pain Intensity: 0 Right Calf: Pain Intensity: 6 Notes Mental Status: alert / awake / arousable and participated in evaluation Nausea / Vomiting: adequately controlled Pain: adequately controlled Airway Patency, RR, SpO2: stable & adequate BP & HR: stable & adequate Hydration State: stable & adequate
--- NOTE | 2018-10-10 11:53 | Hospitalist Progress Note ---
Date of Service October 10, 2018 Assessment & Plan (1) Lumbar stenosis with neurogenic claudication: s/p L5-S1 Decompression and Fusion with Spinal Cord - bowel regimen, dvt prophylaxis, pain control per primary - monitor for acute blood loss (2) COPD (chronic obstructive pulmonary disease): Continue home inhalers, no exacerbation at this time (3) Hypertension: Continue candesartan, ASA when ok with primary, (4) BPH (benign prostatic hyperplasia): continue terazosin Medicine will sign off at this time, please call with any questions Subjective Mr. Frank was having some calf pain in his right leg this morning which he reports is chronic for him and was improving by the time of my evaluation. He has no swelling, erythema or tenderness to palpation in his lower extremities. He otherwise has no complaints Review of Systems Review of Systems: All systems reviewed & are unremarkable except as noted in HPI & below Physical Exam Physical Exam: General: no distress Eyes: normal inspection, PERLL Respiratory: chest non tender, clear to auscultation, normal breath sounds, no respiratory distress, no accessory muscle use Cardiac: regular rate and rhythm, no rub or gallop, no murmur, no edema, no jvd GI/: active bowel sounds, no abd pain or tenderness, soft, non distended Extremities: normal range of motion, normal strength, non tender, no swelling, erythema or focal tenderness on lower extremities Neuro/Psych: alert and oriented x 3, normal mood and affect Skin: normal color, dry Results & Data Vital Signs (Past 12 Hours) Vital Signs Temp Pulse Resp BP Pulse Ox 10/10/18 07:53 36.5 C 73 18 145/74 H 97 10/10/18 04:00 36.5 C 73 18 119/56 L 96 PG Care Time/CCT Total # of Minutes Spent Total Time Spent with Patient: Total time spent is greater than 50% in coordination of care (as documented) at patient's floor/unit and/or counseling patient:
--- NOTE | 2018-10-10 12:06 | Orthopedic Progress Note ---
Date of Service October 10, 2018 Assessment & Plan (1) Lumbar stenosis with neurogenic claudication: This time we will monitor his TROY output and continue physical therapy anticipate discharge home end of the week. Present on Admission?: Yes Subjective Back pain is controlled leg pain markedly improved. Physical Exam Physical Exam: Patient is good strength testing appears comfortable. Results & Data Vital Signs (Past 12 Hours) Vital Signs Temp Pulse Resp BP Pulse Ox 10/10/18 07:53 36.5 C 73 18 145/74 H 97 10/10/18 04:00 36.5 C 73 18 119/56 L 96
[2018-10-10] MEDS: TRAMADOL HCL 50 MG TABLET PO PRN (15:31)
[2018-10-10] MEDS: ROPINIROLE HCL 1 MG TABLET PO SCH ×2 (17:42→21:23)
[2018-10-10] MEDS: FERROUS SULFATE 325 MG TAB PO SCH (21:23)
[2018-10-10] MEDS: DOCUSATE SODIUM/SENNA 50/8.6MG TAB PO SCH (21:23)
[2018-10-10] MEDS: TERAZOSIN HCL 1 MG CAP PO SCH (21:23)
[2018-10-10] MEDS: ASPIRIN 81 MG ECTAB PO SCH (21:23)
[2018-10-10] MEDS: CANDESARTAN CILEXETIL 16 MG TAB PO SCH (21:32)
[2018-10-10] MEDS: ACETAMINOPHEN 500 MG TAB PO PRN (23:35)
[2018-10-11] MEDS: POLYETHYLENE (MIRALAX) 17 GM PACK PO SCH ×3 (05:29→18:44)
[2018-10-11] MEDS: OXYCODONE HCL IR 5 MG TAB (IMMEDIATE RELEASE) PO PRN ×4 (06:09→21:46)
[2018-10-11] MEDS: FLUTICASONE HFA 110MCG INHALER INH SCH ×2 (07:50→21:43)
[2018-10-11] MEDS: LORazepam 0.5 MG TAB PO PRN (07:50)
[2018-10-11] MEDS: TRIAMCINOLONE ACET NASAL SPRAY 10.8ML BTL SCH (07:51)
[2018-10-11] MEDS: ALBUTEROL HFA INHALER 8.5 GM INH SCH ×2 (07:52→21:44)
[2018-10-11] MEDS: OMEGA-3 (PURIFIED FISH OIL) 1 GM CAP PO SCH ×2 (07:52→21:43)
[2018-10-11] MEDS: ROPINIROLE HCL 0.25 MG TABLET PO SCH (07:53)
[2018-10-11] MEDS: VALACYCLOVIR HCL 500 MG TABLET PO SCH (07:53)
[2018-10-11] MEDS: TRAMADOL HCL 50 MG TABLET PO PRN (09:14)
--- NOTE | 2018-10-11 12:16 | Orthopedic Progress Note ---
Date of Service October 11, 2018 Assessment & Plan (1) Lumbar stenosis with neurogenic claudication: This time we will continue physical therapy monitor his TROY output anticipate discharge home tomorrow. Present on Admission?: Yes Subjective Patient continued to complain of some right groin pain some right calf pain but ambulating well. Physical Exam Physical Exam: Patient is in the chair at the bedside is good strength testing appears comfortable. Results & Data Vital Signs (Past 12 Hours) Vital Signs Temp Pulse Resp BP Pulse Ox 10/11/18 06:03 36.7 C 77 16 131/69 94
[2018-10-11] MEDS: ROPINIROLE HCL 1 MG TABLET PO SCH ×2 (16:35→21:43)
[2018-10-11] MEDS: CANDESARTAN CILEXETIL 16 MG TAB PO SCH (21:42)
[2018-10-11] MEDS: FERROUS SULFATE 325 MG TAB PO SCH (21:43)
[2018-10-11] MEDS: ASPIRIN 81 MG ECTAB PO SCH (21:43)
[2018-10-11] MEDS: TERAZOSIN HCL 1 MG CAP PO SCH (21:43)
[2018-10-11] MEDS: ACETAMINOPHEN 500 MG TAB PO PRN (21:46)
[2018-10-11] MEDS: DOCUSATE SODIUM/SENNA 50/8.6MG TAB PO SCH (21:46)
[2018-10-12] MEDS: TRAMADOL HCL 50 MG TABLET PO PRN ×4 (03:59→22:51)
[2018-10-12] MEDS: LORazepam 0.5 MG TAB PO PRN ×3 (04:00→22:51)
[2018-10-12] MEDS: POLYETHYLENE (MIRALAX) 17 GM PACK PO SCH ×4 (05:42→17:35)
[2018-10-12] MEDS: ACETAMINOPHEN 500 MG TAB PO PRN (05:45)
[2018-10-12] MEDS: OXYCODONE HCL IR 5 MG TAB (IMMEDIATE RELEASE) PO PRN ×3 (05:46→16:41)
[2018-10-12] MEDS: FLUTICASONE HFA 110MCG INHALER INH SCH ×2 (08:51→20:19)
[2018-10-12] MEDS: TRIAMCINOLONE ACET NASAL SPRAY 10.8ML BTL SCH (08:52)
[2018-10-12] MEDS: VALACYCLOVIR HCL 500 MG TABLET PO SCH (08:53)
[2018-10-12] MEDS: ROPINIROLE HCL 0.25 MG TABLET PO SCH (08:53)
[2018-10-12] MEDS: OMEGA-3 (PURIFIED FISH OIL) 1 GM CAP PO SCH ×2 (08:53→20:19)
[2018-10-12] MEDS: ALBUTEROL HFA INHALER 8.5 GM INH SCH ×2 (08:54→20:18)
--- NOTE | 2018-10-12 11:55 | XRay Report ---
XR lumbar spine min 4V routine CLINICAL HISTORY: postop right hip pain COMPARISON STUDY: No previous studies for comparison. FINDINGS: There are postsurgical changes present. There is evidence of discectomies and interbody fus ions at the L1-2, L2-3, L3-4,, L4-L5, and L5-S1 levels. There is evidence for posterior spinal fusion with pedicle screws and penny fixation extending from the T12 to the S1 level. Pedicle screw fragments are visualized at the L5 level. These are not connected. There is an overlying surgical drain. There are postsurgical changes of a right hip arthroplasty. There is no pathologic bowel dilatation. IMPRESSION: Extensive postsurgical changes as described above. Electronically signed by: Quinn Hood M.D. 10/12/2018 11:54 AM
--- NOTE | 2018-10-12 11:56 | XRay Report ---
XR hip RT 2-3V w pelvis CLINICAL HISTORY: Right hip pain COMPARISON: None. DISCUSSION: Postsurgical changes are present within the lower lumbar spine. There are postsurgical ch anges of a total right hip arthroplasty. There is no dislocation. No pelvic fractures are visualized. There is no evidence for soft tissue swelling. IMPRESSION: Postsurgical changes of a total right hip arthroplasty. No fractures are visualized. Ther e is no dislocation. Electronically signed by: Quinn Hood M.D. 10/12/2018 11:55 AM
--- NOTE | 2018-10-12 13:01 | Orthopedic Progress Note ---
Date of Service October 12, 2018 Assessment & Plan (1) Lumbar stenosis with neurogenic claudication: I did obtain x-rays lumbar spine and pelvis today. He is left hip osteoarthritis. His right total hip appears to be in place. X-rays appear benign. Plan at this time we will maintain the TROY drain another 24 hours and anticipate discharge home tomorrow. Present on Admission?: Yes Subjective Back pain controlled struggling with right anterior thigh pain otherwise ambulating well. Physical Exam Physical Exam: Patient is in the chair at the bedside. Appears comfortable. Is good strength testing. Results & Data Vital Signs (Past 12 Hours) Vital Signs Temp Pulse Resp BP Pulse Ox 10/12/18 08:01 36.7 C 77 10 L 152/54 H 95
[2018-10-12] MEDS: ROPINIROLE HCL 1 MG TABLET PO SCH ×2 (16:02→20:19)
[2018-10-12] MEDS: TERAZOSIN HCL 1 MG CAP PO SCH (20:19)
[2018-10-12] MEDS: DOCUSATE SODIUM/SENNA 50/8.6MG TAB PO SCH (20:20)
[2018-10-12] MEDS: FERROUS SULFATE 325 MG TAB PO SCH (20:20)
[2018-10-12] MEDS: CANDESARTAN CILEXETIL 16 MG TAB PO SCH (20:20)
[2018-10-12] MEDS: ASPIRIN 81 MG ECTAB PO SCH (20:20)
[2018-10-13] MEDS: POLYETHYLENE (MIRALAX) 17 GM PACK PO SCH (00:32)
[2018-10-13] MEDS: OXYCODONE HCL IR 5 MG TAB (IMMEDIATE RELEASE) PO PRN ×2 (04:20→11:28)
[2018-10-13] MEDS: TRAMADOL HCL 50 MG TABLET PO PRN (07:32)
[2018-10-13] MEDS: FLUTICASONE HFA 110MCG INHALER INH SCH (09:35)
[2018-10-13] MEDS: TRIAMCINOLONE ACET NASAL SPRAY 10.8ML BTL SCH (09:36)
[2018-10-13] MEDS: ROPINIROLE HCL 0.25 MG TABLET PO SCH (09:37)
[2018-10-13] MEDS: OMEGA-3 (PURIFIED FISH OIL) 1 GM CAP PO SCH (09:37)
[2018-10-13] MEDS: VALACYCLOVIR HCL 500 MG TABLET PO SCH (09:37)
[2018-10-13] MEDS: ALBUTEROL HFA INHALER 8.5 GM INH SCH (09:38)
--- NOTE | 2018-10-13 09:56 | Discharge Summary ---
Date of Service October 13, 2018 Admission HPI Per Admitting Provider This is a 77-year-old male well-known to me who presents with chronic persistent back and leg pain. After failing extensive course of nonoperative care is here for surgical intervention. Principal Diagnosis Lumbar spinal stenosis with neurogenic claudication Discharge Data Allergies Allergy/AdvReac Type Severity Reaction Status Date / Time grass pollen-perennial rye, Allergy Unknown WATERY EYES Verified 10/09/18 06:27 standar sertraline AdvReac Unknown DIZZINESS Verified 10/09/18 06:27 zolpidem AdvReac Unknown HALLUCINIATIONS/SUICIDAL Verified 10/09/18 06:27 THOUGHTS Consultations 10/09/18 12:09 Consult Case Management - Discharge Planning Routine Consult Hospitalist Routine Procedures Performed Operation Date: 10/09/18 07:45 Actual Procedures p L5-S1 Decompression and Fusion with Spinal Cord Monitoring(Not Applicable) - Main Grover DO Ordered Studies 10/09/18 07:45 FL fluoroscopy <1hr Routine FL lumbar spine 2-3V Routine Hospital Course (1) Lumbar stenosis with neurogenic claudication: Patient underwent lumbar decompression fusion tolerated as well as taken to orthopedic for postoperative. Postop day 1 is up and ambulating progressed to postop day #2 and 3 TROY drain decreasing appropriately. Subsequently discharged home on postop day #4. Discharge orders and instructions were on the chart for further review. Total Time Total Time Spent Total Time Spent (In Minutes): 30 minutes Discharge Plan Discharge Items Patient Disposition: Home - Self-Care Reason For Visit: Spinal Stenosis, Lumbar Region with Neurogenic Cla Discharge Diagnosis: lumbar stenosis Discharge Goals: Decrease discomfort Activity: Per 'Additional Instructions' section Non-emergency contact: Primary Care Provider Call non-emergency contact if: you have any medication questions Follow-up/Referrals: PCP,NO [Primary Care Provider] - Diet: Regular Addtl Provider Instructions: ACTIVITY RECOMMENDATIONS: SELF CARE INSTRUCTIONS AFTER THORACIC/LUMBAR FUSIONS 1. You may walk to your tolerance. It is good exercise for your legs and back. Expect some back and intermittent leg aches and pains. 2. You may perform "counter-top" level activities (make a sandwich, ezequiel with a project, etc.). 3. No bending or lifting of more than 10 pounds or back twisting of any nature (roll like a log when turning in bed). 4. You may ride in a car for 20-30 minutes at a time. No driving until after your first visit with your doctor. 5. Frequent changes of position and restricting sitting to 30 minutes at a time will help limit the amount of back spasms and stiffness you may experience. 6. You may discontinue the use of ambulatory aids (cane, crutches, etc.) once your strength and confidence allow. 7. You may remediation project engineer the shower and let water strike your incision when you arrive home at least once daily. Do not take a tub bath, sit in a hot tub or go into a swimming pool until after your first recheck in the office. SPECIAL CARE INSTRUCTIONS: VERY IMPORTANT TO READ AND REVIEW A. Your surgical incision has been closed with a cosmetic suture under the skin that will dissolve in about 6 weeks. In 14 days, you can use a pair of clean scissors and cut the suture that is left outside of the skin at the ends of your incision. 1. The small skin tapes can be removed 7 days after surgery if they have not fallen off by that point. 2. You may keep the wound open to air as much as possible to promote healing after post-op day number 5 unless told otherwise by your doctor. 3. If you think the wound looks like it is becoming infected (redness or worsening drainage) and/or you are experiencing fever, chill or worsening back pain and muscle spasms, contact the office so that we may evaluate you as soon as possible. B. Complications are uncommon, but please contact us if you have any signs or symptoms of: 1. wound infection (fever higher than 102.5 degrees F, redness, separation of wound, drainage, or increasing pain from the incision) 2. blood clots in legs (pain, swelling, redness and warmth in legs) 3. urinary tract infection (fever higher than 102.5 degrees F, burning upon urination or increased frequency of urination) 4. nerve problems (inability to walk on your toes or heels, numbness, loss of bowel or bladder control) 5. any other symptoms that concern you C. Please call the office at if you have any concerns or questions about your operation or recovery. D. No smoking! Smoking drastically decreases the chance of a solid fusion. E. Do not take any anti-inflammatory medications (Indocin, Advil, Motrin, Aspirin, Naprosyn, etc.) as these may inhibit the chance of a solid fusion. Tylenol is okay to take for pain. MANAGING PAIN AFTER SPINAL SURGERY 1. Narcotic medication is intended for short-term use and will be provided for surgical pain. Surgical pain usually lasts for a period of 4-6 weeks. Narcotic medication includes Percocet, Vicodin, Darvocet, Tylenol #3 or Lortab. 2. Longer-term pain is more appropriately treated with non-narcotic medication such as Tylenol ES. 3. Muscle spasm is not appropriately treated with narcotics. Muscle relaxers such as Soma, Flexeril or Skelaxin can be used along with Tylenol ES. 4. Remember that we all live with some "aches and pains". This is not unusual or uncommon after an injury or as we get older. a. Back pain is expected and may include muscle spasms for 4 to 6 weeks after surgery. The pain should gradually improve. If the pain worsens for no apparent reason, please contact the office. b. Intermittent leg pain may also be experienced and should not be concerned about unless it worsens for no apparent reason. If so, please contact the office. 5. We will provide appropriate medication within the normal guidelines of their prescribed use. We will also be very cautious and aware of potential abuse and extended duration of patients' medication needs. a. Pain medications are for your comfort and to assist with sleep and rest so that the tissue can heal. They are not provided in order to return to normal activity and should not be used through the day. To do so or worsening pain at night can result from ongoing tissue damage and development of tolerance to the prescribed medicine. 6. Please allow 2-3 days to process refills. Prescriptions will not be mailed but must be picked up at the office. FOLLOW UP VISIT: Keep your scheduled follow-up appointment. Any questions, please call the office at . Prescriptions: New tramadol 50 mg Tablet 50 mg PO Q4H PRN (Reason: Pain, Moderate) Qty: 30 RF: 0 oxycodone 5 mg Tablet 5 mg PO Q4H PRN (Reason: Pain, Severe) Qty: 30 RF: 0 lorazepam 0.5 mg Tablet 0.5 mg PO Q8H Qty: 20 RF: 0 Continued candesartan 16 mg Tablet 16 mg PO QPM RF: 0 lysine 1,000 mg Tablet 1,000 mg PO QAM RF: 0 docusate sodium 50 mg Capsule 100 mg PO Q OTHER DAY RF: 0 valacyclovir [Valtrex] 500 mg Tablet 500 mg PO QAM RF: 0 aspirin 81 mg Tablet,Delayed Release (Dr/Ec) 81 mg PO HS RF: 0 tramadol 50 mg Tablet 50 - 100 mg PO Q6H PRN (Reason: Pain) RF: 0 terazosin 2 mg Capsule 2 mg PO HS RF: 0 ropinirole [Requip] 0.25 mg Tablet 0.5 - 1 mg PO TID RF: 0 ferrous sulfate [iron] 325 mg (65 mg iron) Tablet 325 mg PO HS RF: 0 albuterol sulfate [ProAir HFA] 90 mcg/actuation Hfa Aerosol Inhaler 1 puff INHALATION BID RF: 0 glucosamine-chondroitin [Osteo Bi-Flex] 250-200 mg Tablet 1 tab PO BID RF: 0 coenzyme Q10 [Co Q-10] 400 mg Capsule 400 mg PO HS RF: 0 omega 7-ysj-ynw-fish oil [Fish Oil] 1,000 mg (120 mg-180 mg) Capsule 800 mg PO BID RF: 0 alpha lipoic acid 200 mg Tablet 1 tab PO QAM RF: 0 melatonin 10 mg Tablet 10 mg PO HS RF: 0 Probiotic 3 billion cell Capsule 1 tab PO HS RF: 0 Flovent HFA 110 mcg/actuation Hfa Aerosol Inhaler 2 puff INHALATION BID RF: 0 triamcinolone acetonide [Nasacort] 55 mcg Aerosol,Erbacon 2 spray INTRANASAL QAM RF: 0 acetaminophen [Tylenol Extra Strength] 500 mg Tablet 500 mg PO Q6H PRN (Reason: Pain) RF: 0 Ocuvite Adult 50 Plus 250-5-1 mg Capsule 1 cap PO HS RF: 0 Discontinued ibuprofen 200 mg Tablet 600 mg PO Q6H PRN (Reason: Pain) RF: 0 Stand-Alone Forms: [facility]charge Orders: Discharge Order (Routine); Ordered 10/13/18 Ordered By: Main Grover Admission Data Admit Date/Time: 10/09/18 10:40 Attending Provider: Main Grover Admit Provider: Main Grover Primary Care Provider: PCP,NO Other Providers: Jerad Doty Service: Surgical Services
== END 2018-10-13 12:24 | disposition home or self-care (01) | DRG 455 ==
LOC: ASU 06:06 → 3E 10:40